=== PATIENT | male | born 1970 | race Caucasian/White ===

== ENCOUNTER 2017-05-06 15:38 | Inpatient (IN) | payer OTHER ==
[~2017-05-06] VITALS: Ht 195.6 cm; Wt 124.7 kg
--- NOTE | 2017-05-06 15:48 | ED GENERAL ADULT ---
History of Present Illness General Chief Complaint: General Adult Stated Complaint: SIB DR FOR JAUNDICE Source: patient Exam Limitations: no limitations Vital Signs & Intake/Output Vital Signs & Intake/Output Vital Signs Date Time Temp Pulse Resp B/P B/P Pulse O2 O2 Flow FiO2 Mean Ox Delivery Rate 05/06 1813 97.7 92 18 114/61 99 Room Air 05/06 1558 100 Room Air 05/06 1546 96.5 113 20 160/86 98 Room Air Allergies Coded Allergies: No Known Allergies (05/06/17) Reconcile Medications Ibuprofen 600 MG TABLET 1 TAB PO PRN PAIN (Reported) with food Naproxen Sodium (Aleve) 220 MG TABLET 1-3 TAB PO PRN PAIN (Reported) Triage Note: 47 YO MALE TO TRIAGE C/O WEKANESS AND FEELING TIRED X5 DAYS. PT STATES HIS URINE LOOKS LIKE "DIET COKE" PT STATES HE RECENTLY STARTED A LOW CARB DIET ABOUT 11 WEEKS, STATES HE LOST A TOTAL OF 30LBS. STATES HE FEELS "WINDED". DENIES CHEST PAIN/ABD PAIN. PT JAUNDICE IN COLOR. PT TO ER ROOM 12 ON ARRIVAL Triage Nurses Notes Reviewed? yes Onset: Abrupt Duration: week(s): Timing: recent history HPI: 05/06/17 4 pm 47-year-old man presents to the emergency department complaining of weakness, difficulty breathing, excessively tired. He also admits to dark urine and intermittent rectal bleeding. The rectal bleeding has been on and off times years. The other symptoms have just occurred over the past 2-3 weeks. The onset of the symptoms were abrupt, the duration has been for 2 weeks, the severity significant; as her symptoms required his to come to the emergency department for care. Does admit to being outdoors a lot and is taken ticks off himself. Past History Travel History Traveled to [place] past 21 day No Medical History Any Pertinent Medical History? see below for history Neurological: NONE EENT: NONE Cardiovascular: NONE Respiratory: NONE Gastrointestinal: NONE Hepatic: NONE Renal: NONE Musculoskeletal: NONE Psychiatric: NONE Endocrine: NONE Blood Disorders: NONE Cancer(s): NONE COURIER/Reproductive: NONE Surgical History Surgical History: knee surg, hand surg Psychosocial History What is your primary language Frisian Tobacco Use: Never used ETOH Use: occasional use Illicit Drug Use: denies illicit drug use Family History Hx Contributory? No Review of Systems Review of Systems Constitutional: Denies: fever. EENTM: Denies: visual changes. Respiratory: Reports: short of breath. Cardiovascular: Denies: chest pain. GI: Denies: abdominal pain. Genitourinary: Reports: hematuria. Musculoskeletal: Reports: muscle pain. Skin: Denies: rash. Neurological/Psychological: Reports: headache. Hematologic/Endocrine: Denies: bruising, bleeding. Physical Exam Physical Exam General Appearance: well developed/nourished, alert, awake, anxious Head: atraumatic, normal appearance Eyes: Bilateral: normal appearance, PERRL, EOMI. Ears, Nose, Throat: normal pharynx, normal ENT inspection Neck: normal inspection, supple, full range of motion Respiratory: normal breath sounds, chest non-tender, no respiratory distress Cardiovascular: regular rate/rhythm Peripheral Pulses: 4+ radial (R), 4+ radial (L) Gastrointestinal: soft, non-tender Rectal: heme positive stool Back: normal range of motion Extremities: normal inspection, no edema Neurologic/Psych: no motor/sensory deficits, awake, alert, oriented x 3 Skin: pallor Core Measures ACS in differential dx? No CVA/TIA Diagnosis: No Severe Sepsis Present: No Septic Shock Present: No Progress Differential Diagnoses I considered the following diagnoses in my evaluation of the patient: [Hemolytic anemia, anemia secondary to GI bleeding, tickborne illness, babesiosis, malignancy] Plan of Care: Orders Procedure Date/time Status Nothing by Mouth 05/07 B Active LEUKOCYTE POOR (PACKED CELLS) 05/06 1753 Active ED Holding Orders 05/06 1750 Active Admit to inpatient 05/06 1750 Active Vital Signs 05/06 1750 Active Code Status 05/06 1750 Active Add-on Test (ER Only) 05/06 1745 Active Add-on Test (ER Only) 05/06 1734 Active TOTAL IRON BINDING CAPACITY 05/06 1620 Active LEAD Ref$ 05/06 1620 Active LDH (LACT ACID DEHYDROGENASE) 05/06 1620 Active FOLIC ACID 05/06 1620 Active SERUM IRON 05/06 1620 Active VITAMIN B12 05/06 1620 Active URINALYSIS 05/06 1612 Complete TROPONIN LEVEL 05/06 1612 Active LYME TITRE 05/06 1612 Active HEPATITIS PANEL 05/06 1612 Active D-DIMER 05/06 1612 Complete COMPREHENSIVE METABOLIC PANEL 05/06 1612 Active CREATINE PHOSPHOKINASE 05/06 1612 Active CBC WITHOUT DIFFERENTIAL 05/06 1612 Complete ANAPLASMA PHAGOCYTOPHILUM DNA 05/06 1612 Active EKG 05/06 1612 Active TYPE & SCREEN (NOT X-MATCH) 05/06 1612 Active Current Medications Sig/Katey Start time Last Medication Dose Stop Time Status Admin Sodium Chloride 1,000 ML ONCE ONE 05/06 1615 AC 05/06 (Normal Saline 0.9%) 05/06 2254 1615 Laboratory Tests 05/06/17 1620: Lyme Disease Antibody Pending 05/06/17 1620: Hepatitis A IgM Ab Pending, Hep Bs Antigen Pending, Hep B Core IgM Ab Conf Pending, Hepatitis C Antibody Pending 05/06/17 1620: Anion Gap 11, Estimated GFR > 60, BUN/Creatinine Ratio 17.5, Glucose 112 H, Calcium 9.3, Iron Pending, TIBC Pending, Total Bilirubin 2.7 H, AST 28, ALT 37, Alkaline Phosphatase 63, Lactate Dehydrogenase Pending, Creatine Kinase 81, Troponin I < 0.01, Total Protein 6.8, Albumin 4.2, Globulin 2.6, Albumin/ Globulin Ratio 1.6, Vitamin B12 Pending, Folate Pending, D-Dimer High Sensitivty 253 H, CBC w Diff MAN DIFF ORDERED, RBC 1.78 L, MCV 97.9 H, MCH 32.4 H, RDW 14.5, MPV 7.4, Gran % 82.3 H, Lymphocytes % 9.4 L, Monocytes % 4.0, Eosinophils % 3.7, Basophils % 0.6, Absolute Granulocytes 5.4, Segmented Neutrophils 79 H, Band Neutrophils 3, Absolute Lymphocytes 0.6 L, Lymphocytes 8 L, Monocytes 2, Absolute Monocytes 0.3, Eosinophils 5, Absolute Eosinophils 0.2, Basophils 1, Absolute Basophils 0, Metamyelocytes 2 H, Nucleated RBCs 1 H , Platelet Estimate VERIFIED BY SMEAR, Polychromasia 1+, Basophilic Stippling RARE, Anisocytosis 1+, PUBS MCHC 33.1, Fld Total RBCs Counted 100, A.phagocytophil DNA PCR Pending, Lead Sample Type Pending, Lead Pending, Urine Color YEL, Urine Clarity CLEAR, Urine pH 6.0, Ur Specific [place] 1.020, Urine Protein NEG, Urine Ketones NEG, Urine Nitrite NEG, Urine Bilirubin SMALL H, Urine Urobilinogen 1.0, Ur Leukocyte Esterase NEG, Ur Microscopic EXAM NOT REQUIRED, Urine Hemoglobin NEG, Urine Glucose NEG Initial ED EKG: NSR Departure Departure Disposition: STILL A PATIENT Condition: Stable Clinical Impression Primary Impression: Symptomatic anemia Secondary Impressions: GI bleed Departure Forms: Customer Survey General Discharge Information Critical Care Note Critical Care Note Critical Care Time: 30-74 min
[2017-05-06] MEDS ORDERED: ALEVE220 M2 PO (16:15)
[2017-05-06] MEDS ORDERED: IBUPROFEN600 M1 PO (16:16)
[2017-05-06 16:47] LABS: ABSOLUTE BASOPHIL COUNT 0 /CUMM (0.0-0.2); ABSOLUTE EOSINOPHIL COUNT 0.2 /CUMM (0.0-0.7); ABSOLUTE GRANULOCYTE CT 5.4 /CUMM (1.4-6.5); ABSOLUTE LYMPH COUNT 0.6 /CUMM (1.2-3.4); ABSOLUTE MONOCYTE COUNT 0.3 /CUMM (0.10-0.60); BASOPHIL % 0.6 % (0.0-2.0); EOSINOPHIL % 3.7 % (0-5); GRANULOCYTE % 82.3 % (42.2-75.2); MEAN CORPUSCULAR HGB 32.4 PG (27.0-31.0); MEAN CORPUSCULAR HGB CONC 33.1 G/DL (33.0-37.0); MEAN CORPUSCULAR VOLUME 97.9 FL (80.0-94.0); MEAN PLATELET VOLUME 7.4 FL (7.4-10.4); PLATELET COUNT 248 /CUMM (130-400); RBC DISTRIBUTION WIDTH 14.5 % (11.5-14.5); RED BLOOD CELL CT 1.78 /CUMM (4.70-6.10); WHITE BLOOD CELL COUNT 6.6 /CUMM (4.8-10.8)
--- NOTE | 2017-05-06 16:59 | NUR ---
CRITICAL TEST RESULTS [id number] KAMLA MCKEON TESTS AND RESULTS: hgb 5.8, hct 17.5 Results received and read back by: AMBROSIO GARRISON Results received date and time: 05/06/17 0405 The following provider was notified of the results, and read the results back: crys Notified date and time: 05/06/17 at 9816
[2017-05-06 17:00] LABS: HEMATOCRIT 17.5 % (42-52)
--- NOTE | 2017-05-06 17:10 | RADIOLOGY REPORT ---
EXAMINATION: XR CHEST CLINICAL INFORMATION: Shortness of breath COMPARISON: None TECHNIQUE: 2 views of the chest were obtained. FINDINGS: The left lateral costophrenic angle is not included in this exam. The cardiomediastinal silhouette and pulmonary vascularity are normal. The lungs are clear. No pleural effusions. No pneumothorax. The visualized bony thorax is within normal limits. IMPRESSION: No acute cardiopulmonary findings within limitations of exam.
--- NOTE | 2017-05-06 17:19 | NUR ---
STEVE VILLARREAL DRAWN AND SENT. PT TO CT VIA STRETCHER
--- NOTE | 2017-05-06 18:14 | CT SCAN REPORT ---
EXAMINATION: CT HEAD WITHOUT CONTRAST CLINICAL INFORMATION: Headache. COMPARISON: None TECHNIQUE: Contiguous axial imaging was performed from the skull base to vertex without intravenous administration of contrast. DLP: 617.14 mGy-cm FINDINGS: There is no evidence of acute intracranial hemorrhage or territorial infarction. No abnormal mass effect or midline shift is seen. Ramirez to white matter differentiation is well preserved. No extra-axial fluid collections are identified. The ventricles are normal in size. There is no abnormal attenuation within the brain parenchyma. The osseous structures and soft tissues are normal. The mastoid air cells and visualized portions of the paranasal sinuses are well aerated. IMPRESSION: No acute intracranial pathology.
--- NOTE | 2017-05-06 18:22 | CT SCAN REPORT ---
EXAMINATION: CT ABDOMEN AND PELVIS WITH CONTRAST CLINICAL INFORMATION: Anemia. Jaundice. Rule out malignancy. COMPARISON: None. TECHNIQUE: Multidetector volumetric imaging was performed from the lung bases through the pubic symphysis following the uneventful administration of: Oral contrast: No Intravenous contrast: 94 cc Optiray 320 Sagittal and coronal reformatted images were obtained on the technologist workstation. Total exam dose-length product 1109 mGy-cm FINDINGS: LUNG BASES: There is streaky atelectasis vs. scar at the lung bases. No focal consolidation or mass. LIVER, GALLBLADDER, AND BILIARY TREE: The liver is normal in size, shape, and attenuation. No focal hepatic lesion or biliary ductal dilatation is present. The gallbladder is unremarkable with no evidence of radiopaque gallstones, gallbladder wall thickening, or obvious pericholecystic inflammatory changes. PANCREAS: Normal; no mass or surrounding fluid. SPLEEN: Splenomegaly, measuring 16.6 cm in greatest transaxial dimension, 16.3 cm craniocaudal. No focal splenic lesion seen however. ADRENAL GLANDS: Normal; no mass. KIDNEYS AND URETERS: The kidneys are normal in size, shape, and attenuation. No hydronephrosis, hydroureter, or calculi. GASTROINTESTINAL TRACT: Stomach and small bowel non-dilated. Mild sigmoid diverticulosis with scattered diverticula elsewhere. No colonic wall thickening or pericolonic inflammatory changes. Normal appendix. ABDOMINAL WALL: Tiny fat-containing umbilical hernia. There is fat within both inguinal canals bilaterally. LYMPHOVASCULAR STRUCTURES: There are prominent retroperitoneal lymph nodes but these are not pathologically enlarged by short axis CT size criteria. The aorta is unremarkable. BLADDER: No focal mass or wall thickening seen. No bladder calculi. PELVIC VISCERA: The prostate and seminal vesicles are normal. OSSEOUS STRUCTURES: Severe degenerative changes of the bilateral hips, left greater than right, greater than expected for age. Multilevel degenerative changes of the thoracolumbar spine. IMPRESSION: No biliary ductal dilatation. No focal liver or pancreatic mass. Nonspecific splenomegaly. No focal splenic lesion seen.
--- NOTE | 2017-05-06 18:35 | NUR ---
PATIENT IS UPDATED ON CONTINUED WAIT. PATIENT IS RESTING W/O C/O AT THIS TIME.
--- NOTE | 2017-05-06 19:48 | History & Physical ---
ULISES ARVIZU MD 05/06/171946: General Information and HPI MD Statement: I have seen and personally examined TEZ MCKEON and documented this H&P. The patient is a 47 year old M who presented with a patient stated chief complaint of [fatigue,shortness of breath, jaundice, dizziness, cola colored urine]. Source of Information: patient Exam Limitations: no limitations History of Present Illness: 47-year-old male with PMH of spinal stenosis on NSAIDs, presented for fatigue, shortness of breath, jaundice, dizziness, cola colored urine. Over the past couple of weeks, he has been feeling increasingly fatigued, tachycardic on minimal exertion. Of note, he has been on low carb diet since February 26, and has lost about 30 lbs since then. His sugar level was reportedly normal. Over the past few weeks, he also has orange colored urine. He has tried to drink more fluids, and now the urine looks "cola colored". His friends have also noted that his skin is more yellow than usual. Blood work on saturday (3 days prior to admission) showed hb of 8. Hb in the Ed this admission showed h/h of 5.8/17.5. He has had intermittent rectal bleed over the past 7 years, 2-3 episodes per month, bright red blood, about 1/4 of a cup, usually coating the stool and on the toilet paper. He has never been transfused in the past and is not aware of any bleeding disorder that runs in the family. He loves eating beans and has been eating them for years. Denies any new food in the diet. He takes ibuprofen and naproxen up to 3 times daily for back pain. Denies melena. Stool exam in the ED is reported as guaiac positive. He has a dog, that is currently treated for lyme disease. + ticks exposure, ? tick bite. ROS postiive for fever, chills, dizziness, lightheadedness, tunnel vision, pre- syncope sensation. Of note, we are still awaiting compatible blood for him from [facility] as he has antibodies in his blood. Patient aware. 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 Home Smoking Status: Current Some Day Smoker (smoke cigar sometimes) ETOH Use: occasional use Illicit Drug Use: denies illicit drug use Functional Ability ADLs Independent: dressing, eating, toileting, bathing. Ambulation: independent IADLs Independent: shopping, housework, finances, food prep, telephone, transportation , medication admin. 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 EENTM: Reports: see HPI, visual changes. Cardiovascular: Reports: palpitations. Denies: chest pain, edema, peripheral edema, syncope. Respiratory: Reports: short of breath. Denies: cough, sputum production, wheezing. GI: Reports: nausea. Denies: abdominal pain, bloating, constipation, diarrhea, bloody stool, changes in stool, vomiting. Genitourinary: Denies: dysuria. Musculoskeletal: Reports: back pain. Exam & Diagnostic Data Last 24 Hrs of Vital Signs/I&O Vital Signs Date Time Temp Pulse Resp B/P B/P Pulse O2 O2 Flow FiO2 Mean Ox Delivery Rate 05/06 2300 99.0 85 18 118/64 97 Room Air 05/061 98.7 88 20 120/62 98 Room Air /5 95 18 141/63 100 Room Air / 2005 97.0 93 22 128/63 96 Room Air / 1813 97.7 92 18 114/61 99 Room Air / 1558 100 Room Air / 1546 96.5 113 20 160/86 98 Room Air Intake & Output 05/07 0800 06/06 0000 06/05 1600 Intake Total 1360 Output Total Balance 1360 Intake, IV 1000 Intake, Oral 360 Patient 124.738 kg 127.006 kg Weight Weight Reported by Patient Reported by Patient Measurement Method Physical Exam General Appearance Alert, Oriented X3, Cooperative, No Acute Distress Skin pale, jaundice face Skin Temp/Moisture Exam: Warm/Dry Sepsis Skin Exam (color): Normal for Ethnicity HEENT Atraumatic, PERRLA, EOMI, dry mucous membranes Neck Supple, No JVD, No thryomegaly, +2 Carotid Pulse wo Bruit Lymphatic Axillary nl, Cervical nl Cardiovascular Normal S1, Normal S2, No Murmurs, Gallops, Rubs, tachycardic Lungs Clear to Auscultation, Normal Air Movement Abdomen Normal Bowel Sounds, Soft, No Tenderness, No Hepatospenomegaly, No Masses Neurological Normal Speech Extremities No Cyanosis, No Edema, Normal Pulses, No Tenderness/Swelling Vascular Normal Pulses, Pulses Symmetrical Last 24 Hrs of Labs/Vinh: Laboratory Tests 05/06/17 2250: Haptoglobin Pending 05/06/17 1620: Lyme Disease Antibody Pending 05/06/17 1620: Hepatitis A IgM Ab Pending, Hep Bs Antigen Pending, Hep B Core IgM Ab Conf Pending, Hepatitis C Antibody Pending, HIV 1&2 Ab Western Blot NONREACTIVE 05/06/17 1620: Anion Gap 11, Estimated GFR > 60, BUN/Creatinine Ratio 17.5, Glucose 112 H, Calcium 9.3, Iron 146, TIBC 303, Ferritin 667.0 H, Total Bilirubin 2.7 H, Direct Bilirubin 0.7 H, AST 28, ALT 37, Alkaline Phosphatase 63, Lactate Dehydrogenase 1316 H, Creatine Kinase 81, Troponin I < 0.01, Total Protein 6.8, Albumin 4.2, Globulin 2.6, Albumin/Globulin Ratio 1.6, Vitamin B12 518, Folate 6.2, TSH 2.450, Free T4 1.26, D-Dimer High Sensitivty 253 H, CBC w Diff MAN DIFF ORDERED, RBC 1.78 L, MCV 97.9 H, MCH 32.4 H, RDW 14.5, MPV 7.4, Gran % 82.3 H, Lymphocytes % 9.4 L, Monocytes % 4.0, Eosinophils % 3.7, Basophils % 0.6, Absolute Granulocytes 5.4, Segmented Neutrophils 79 H, Band Neutrophils 3, Absolute Lymphocytes 0.6 L, Lymphocytes 8 L, Monocytes 2, Absolute Monocytes 0.3, Eosinophils 5, Absolute Eosinophils 0.2, Basophils 1, Absolute Basophils 0, Metamyelocytes 2 H, Nucleated RBCs 1 H, Platelet Estimate VERIFIED BY SMEAR, Polychromasia 1+, Basophilic Stippling RARE, Anisocytosis 1+, PUBS MCHC 33.1, Retic Count 12.3 H, Fld Total RBCs Counted 100, A.phagocytophil DNA PCR Pending , Lead Sample Type Pending, Lead Pending, Urine Color YEL, Urine Clarity CLEAR, Urine pH 6.0, Ur Specific [place] 1.020, Urine Protein NEG, Urine Ketones NEG, Urine Nitrite NEG, Urine Bilirubin NEG@ICTO, Urine Urobilinogen 1.0, Ur Leukocyte Esterase NEG, Ur Microscopic EXAM NOT REQUIRED, Urine Hemoglobin NEG, Urine Glucose NEG Diagnostic Data CXR Results EXAM TYPE: RAD - XRY-CHEST XRAY, PA AND LATERAL EXAMINATION: XR CHEST CLINICAL INFORMATION: Shortness of breath COMPARISON: None TECHNIQUE: 2 views of the chest were obtained. FINDINGS: The left lateral costophrenic angle is not included in this exam. The cardiomediastinal silhouette and pulmonary vascularity are normal. The lungs are clear. No pleural effusions. No pneumothorax. The visualized bony thorax is within normal limits. IMPRESSION: No acute cardiopulmonary findings within limitations of exam. DICTATED BY: MARISSA TAYLOR MD DATE/TIME DICTATED:05/06/171703 Other Results SERVICE DATE: 05/06/17 EXAM TYPE: CAT - CT HEAD WO IV CONTRAST EXAMINATION: CT HEAD WITHOUT CONTRAST CLINICAL INFORMATION: Headache. COMPARISON: None TECHNIQUE: Contiguous axial imaging was performed from the skull base to vertex without intravenous administration of contrast. DLP: 617.14 mGy-cm FINDINGS: There is no evidence of acute intracranial hemorrhage or territorial infarction. No abnormal mass effect or midline shift is seen. Ramirez to white matter differentiation is well preserved. No extra-axial fluid collections are identified. The ventricles are normal in size. There is no abnormal attenuation within the brain parenchyma. The osseous structures and soft tissues are normal. The mastoid air cells and visualized portions of the paranasal sinuses are well aerated. IMPRESSION: No acute intracranial pathology. DICTATED BY: GAVIN PARK MD DATE/TIME DICTATED:05/06/171807 EXAM TYPE: CAT - CT ABD & PELVIS W IV CONTRAST EXAMINATION: CT ABDOMEN AND PELVIS WITH CONTRAST CLINICAL INFORMATION: Anemia. Jaundice. Rule out malignancy. COMPARISON: None. TECHNIQUE: Multidetector volumetric imaging was performed from the lung bases through the pubic symphysis following the uneventful administration of: Oral contrast: No Intravenous contrast: 94 cc Optiray 320 Sagittal and coronal reformatted images were obtained on the technologist workstation. Total exam dose-length product 1109 mGy-cm FINDINGS: LUNG BASES: There is streaky atelectasis vs. scar at the lung bases. No focal consolidation or mass. LIVER, GALLBLADDER, AND BILIARY TREE: The liver is normal in size, shape, and attenuation. No focal hepatic lesion or biliary ductal dilatation is present. The gallbladder is unremarkable with no evidence of radiopaque gallstones, gallbladder wall thickening, or obvious pericholecystic inflammatory changes. PANCREAS: Normal; no mass or surrounding fluid. SPLEEN: Splenomegaly, measuring 16.6 cm in greatest transaxial dimension, 16.3 cm craniocaudal. No focal splenic lesion seen however. ADRENAL GLANDS: Normal; no mass. KIDNEYS AND URETERS: The kidneys are normal in size, shape, and attenuation. No hydronephrosis, hydroureter, or calculi. GASTROINTESTINAL TRACT: Stomach and small bowel non-dilated. Mild sigmoid diverticulosis with scattered diverticula elsewhere. No colonic wall thickening or pericolonic inflammatory changes. Normal appendix. ABDOMINAL WALL: Tiny fat-containing umbilical hernia. There is fat within both inguinal canals bilaterally. LYMPHOVASCULAR STRUCTURES: There are prominent retroperitoneal lymph nodes but these are not pathologically enlarged by short axis CT size criteria. The aorta is unremarkable. BLADDER: No focal mass or wall thickening seen. No bladder calculi. PELVIC VISCERA: The prostate and seminal vesicles are normal. OSSEOUS STRUCTURES: Severe degenerative changes of the bilateral hips, left greater than right, greater than expected for age. Multilevel degenerative changes of the thoracolumbar spine. IMPRESSION: No biliary ductal dilatation. No focal liver or pancreatic mass. Nonspecific splenomegaly. No focal splenic lesion seen. DICTATED BY: GRACIELA MICHAUD MD DATE/TIME DICTATED:05/06/171811 FINISHING MACHINE OPERATOR:ESDRAS Assessment/Plan Assessment: 47-year-old male with PMH of spinal stenosis on NSAIDs, presented for fatigue, shortness of breath, tachycardia on minimal exertion, jaundice, dizziness, cola colored urine, found to have h/h of 5.8/17.5 (hb was 8 about 3 days prior). No recent obvious bleeding reported, guaiac positive stool in ED, hx of intermittent bright red blood per rectum over the past 7 years, 2-3 episodes/ month, 1/4 cup blood each time. He takes ibuprofen and naproxen up to 3 times daily for back pain. CT showed nonspecific splenomegaly (16.6 cm X 16.3 cm). Labs: h/h 5.8/17.5, retic count 12.3H, MCV 97.9, RDW 14.5, rare basophilic stippling, total bilirubin 2.7H, direct bilirubin 0.7H, LDH 1316, iron 146, tibc 303, ferritin 667H, b12 518, folate 6.2, tsh 2.45, ft4 1.26. He has never been transfused in the past and is not aware of any bleeding disorder that runs in the family. He has a dog, that is currently treated for lyme disease. + ticks exposure, ?tick bite. ROS positive for fever, chills, 1 X night sweat, dizziness, lightheadedness, tunnel vision, pre-syncope sensation. CT head was negative. Patient admitted to general medicine for symptomatic anemia, currently awaiting compatible blood to be transfused. Problem list: # Symptomatic anemia # Hx of spinal stenosis # Symptomatic anemia, could be due to GI blood loss given hx of rectal bleed, vs autoimmune hemolytic anemia given high LDH and indirect bilirubin * F/U lyme titer, anaplasma, babesiosis, hepatitis panel, HIV, lead level, coomb 's test, haptoglobin, peripheral smear * Transfuse 2 units of PRBC when there is compatible blood available * GI consult in am * Hematology consult in am * Guaiac all stool * Follow h/h * Keep off NSAIDs * NS 75ml/hr X 2 bags * omeprazole 40 mg daily started # Hx of spinal stenosis * Keep off NSAIDs * PP: morphine 2 mg q4p severe pain, vicodin 5/325 q6p moderate, tylenol 650 q6p mild Diet: Regular PP: morphine 2 mg q4p severe pain, vicodin 5/325 q6p moderate, tylenol 650 q6p mild DVT ppx: alps. no pharm due to anemia FULL CODE As Ranked By This Provider Problem List: 1. Symptomatic anemia Core Measures/Miscellaneous Acute Coronary Syndrome ACS Diagnosis: No Cerebrovascular Accident CVA/TIA Diagnosis: No Congestive Heart Failure CHF Diagnosis: No Venous Thromboembolism VTE Risk Factors: Acute medical illness, Age > 40 No [facility] VTE prophylaxis d/t: No contraindications No VTE Pharm Prophylaxis d/t: Active bleeding VTE Diagnosis: No VTE Type: NONE VTE Confirmed by (Test): NONE Severe Sepsis Severe Sepsis Present: No Septic Shock Septic Shock Present: No Miscellaneous Documentation Attending Case Discussed With: SOLEDAD BOWEN MD Primary Care Physician: JOHN MAGALLANES MD Patient sees these Specialists None Level of Patient Care: General Medicine GUS,NIDA 05/06/171946: Resident Review Statement Resident Statement: examined this patient, discussed with internet site designer, agreed with internet site designer, discussed with family, reviewed EMR data (avail), discussed with nursing , discussed with case mgmt, reviewed images, amended to note Other Findings: 47-year-old male with no past medical history presents to the ED with complains of weakness, difficulty breathing, fatigue, dark urine and intermittent rectal bleeding. According to the patient has been experiencing shortness of breath, feeling tired and fatigued as well as start "cold urine for the past 2-3 weeks now. States he called Dr. Araujo who had blood work ordered him for a call from him today saying that his H&H is low with a hemoglobin of 8 to go to the ER for further evaluation. Upon arrival blood work. That his H&H was down to 5.5. Patient does endorse history of tick bites and states that he has a dog that has been recently diagnosed with Lyme. He denies any recent antibiotic use, eating fiber beans, any history of hemoglobinopathies. Denies any pruritus, rash on the body. Denies any abdominal pain, nausea, vomiting, diarrhea or constipation. Does endorse having intermittent episodes of rectal bleeding. States that he sometimes notice about a quarter of occult blood with stools. Denies any melena. He smokes cigars occasionally, drinks alcohol occasionally, denies any drug use. 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 Denies any exposure to inhalation films. Denies any fevers. His review of systems otherwise is premature unremarkable. Vitals at the time of admission blood pressure 114/61, respiratory rate of 18, pulse 92, afebrile saturating 99% on room air. On physical exam he is alert, oriented 3 and in no acute distress sitting comfortably in bed. HEENT revealed anemia, mildly icteric. Examination of the neck did not reveal any elevated JVP or cervical lymphadenopathy. Cardiovascular exam pertinent for normal S1, S2, no murmurs rubs or gallops appreciated. Chest was clear to auscultation bilaterally. Abdominal exam was benign with abdomen soft, nontender, nondistended with normal bowel sounds in all 4 quadrants, no hepatosplenomegaly. Examination of the lower extremities did not reveal any edema. Neuro exam was grossly unremarkable. Lab pertinent for microcytic anemia with an H&H of 5.8/17.65, MCV of 97.5 with a normal platelet count of 248,000. White blood cell count was within normal limits at 6600 with left shift with 79 segmented neutrophils, and 2 metamyelocytes. Serum chemistries revealed sodium of 1:30, potassium of 3.7, bicarbonate of 26, normal anion gap of 11, BUN 14 with a creatinine of 0.8. Serum glucose elevated to 112. Iron studies pending. Total bili elevated to 2.7, AST/ALT of 28/37, alkaline phosphatase of 63. LDH pending. Creatinine kinase with 81, troponin less than 0.01. Vitamin B12, folate, TSH, free T4 pending. D-dimer elevated to 52. Serum lead pending. Duett pertinent for a small amount of bilirubin otherwise unremarkable. Lyme and anaplasmosis together with hepatitis panel pending. Chest x-ray revealed no acute cardiopulmonary findings, no pleural effusion or pneumothorax. Head CT showed no acute intracranial pathology. CT abdomen and pelvis with IV contrast showed no biliary ductal dilatation, no liver or pancreatic mass, nonspecific splenomegaly, no focal splenic lesion. There are prominent retroperitoneal lymph nodes but these are not pathologically enlarged. There is mild sigmoid diverticulosis with scattered diverticula elsewhere no colonic wall thickening or pericolonic inflammatory changes. In the ER he received normal saline bolus 1. Assessment and plan Admit patient to [facility] #Macrocytic anemia Most likely secondary to acute blood loss anemia however workup including increased LDH, normal RDW, elevated indirect bilirubin is consistent with hemolytic anemia. Of note iron studies are normal except for hypertension which is elevated at 667 which is also probably because it is an acute phase reactant We'll send for direct Wally' test Type and crossmatch 2 units of packed RBCs Follow-up CBC in a.m. Follow-up HIV, hepatitis serologies, Lyme's antibody, peripheral smear for babesiosis, anaplasmosis, haptoglobulin Lead sample was sent, follow-up studies which were sent from the ER there is no basophilic stippling deficit GI eval in AM given heme positive stools. Heme consult in AM given hemolytic anemia - DVT Prophylaxis - ALPs given anemia - Diet - Regular - Code Status - Full Code JESSI KUMAR, [facility] 05/06/17 2030: Attending MD Review Statement Attending Statement Attending MD Statement: examined this patient, discuss w/resident/PA/MATRIX WORKER, agreed w/resident/PA/MATRIX WORKER Attending Assessment/Plan: 47 yo M with h/o spinal stenosis, is here for evaluation of fatigue, exhaustion and exertional dyspnea. Patient is healthy at baseline and has been on a low carb diet-exercise plan with resultant weight loss of 30 lbs over 12 weeks. He works at [employer]. Although he has noticed exertional dyspnea for the past 1 month, over the past 1 week his symptoms have been more prominent dyspneic on doing a flight of stairs or minimal exertion, palpitations, extremely exhausted and lightheaded. He also reports occipital headaches off and on, but states his BP was ok and no vision changes. He did notice that his urine was dark as 'diet coke' and that people noticed he was turning pale/white. He spoke with Dr. Magallanes (who is his friend), who advised blood work which he got done on Saturday at [facility]. He got the results today, showed H/H of 8.1/24.8 and he was advised to come to the ER. Tez has not seen a doctor for over 5 years, he reports intermittent BRBPR/ hematochezia once every week, that is painful and amounts to about half a cup. He thinks he may have hemorrhoids. No abdominal pain, N/V, diarrhea. C/o heartburn that resolves with balsamic vinegar, denies melena. He uses naproxen everyday and motrin occasionally for back pain 2/2 spinal stenosis. He has never had a colonoscopy. He reports h/o nosebleeds as a kid. Denies easy bruising or rash. Does endorse tick bites (his dog is currently being treated for Lyme). No h/o blood transfusions. Denies h/o sickle cell or thalassemia. No bleeding or clotting disorders in the family. Vitals stable except for tachycardia. Exam: Pallor++, no lymphadenopathy, no rash. Chest b/l clear, Heart S1S2 regular tachycardic. Abd soft, NT. LE: no edema. Labs: H/H 5.8/17.5, macrocytosis, normal RDW and platelet count, metamyelocytes 2, glucose 112, T. Bili 2.7, D. Bili 0.7, LDH 1316, trop neg, UA clear. HIV nonreactive. EKG: Sinus rhythm. CT abd/pelvis: splenomegaly. CT head neg. CXR neg. Rectal exam: Guaiac positive. 1. Symptomatic anemia, chronic blood loss, with possible hemolysis (elevated LDH , T. bili). GM admit, type and crossmatch. Check orthostats. Gentle hydration. Check peripheral smear, iron studies, B12, folic acid, TSH, free T4, retic count , haptoglobin, transfuse 2 units PRBCs when available. Check Coomb's test. Check hepatitis and tick panel. Guaiac all stools. Add PPI. Avoid NSAIDs. GI and hematology eval in AM. Presence of splenomegaly ?thalassemia vs. Infectious or neoplastic process. I spoke with blood bank, patient's blood type is "O" however may have antibodies which is causing a reaction to available blood. Hence, blood has been sent to [place] for testing and assess availability of blood for transfusion. This has been explained to patient. DVT ppx Alps. Full code.
--- NOTE | 2017-05-06 20:17 | NUR ---
PT GOING TO ROOM 226-1.
--- NOTE | 2017-05-06 20:31 | Admission Certification ---
Admission Certification Certification Statement - As attending physician, I certify that at the time of - admission, based on clinical presentation, severity of - symptoms, need for further diagnostic testing and - therapeutic interventions, and risk of adverse outcomes - without in-hospital treatment, in my clinical assessment, - this patient requires an acute hospital stay for a minimum - of two nights or longer. I have also considered psychsocial - factors such as support system, advanced age, financial - issues, cognitive issues, and failed out-patient treatments, - past re-admission history, safety of patient, and lack of - compliance as applicable. Specific rationale supporting this admission is: Symptomatic anemia, chronic blood loss, hemolytic anemia.
[2017-05-06 21:11] VITALS: BP 120/62
[2017-05-06 23:00] VITALS: BP 118/64
--- NOTE | 2017-05-06 23:25 | NUR ---
PATIENT ARRIVED ON UNIT AT APPROX 2100 FROM ER. PATIENT WAS ORIENTED TO CALL JORDAN, ROOM, STAFF, SURROUNDINGS. PT A+Ox3 AND ON RA. SLIGHT JAUNDICE APPEARANCE NOTICED UPON EXAMINATION. ADMISSION ASSESSMENT COMPLETE. 2 UNITS OF PRBC'S ORDERED AND LAB IS AWAITING TO RECEIVE THEM FROM OUTSIDE OF THE HOSPITAL. PATIENT IS AWARE AND UNDERSTANDING. VITALS ARE STABLE AT THIS TIME. NO FURTHER COMPLAINTS. WILL CONTINUE TO CLOSELY MONITOR.
[2017-05-07 06:55] VITALS: BP 120/60
--- NOTE | 2017-05-07 06:58 | PN- Housestaff ---
See Addendum Subjective Follow-up For: Generalized Weakness Headache Subjective: Mr Stanley was seen and examined this morning. He is resting comfrotably in bed. Continues to feel lethergic and states the he has developed a headache overnight. Patient states his headache is bilaterral in nature present in the occipital area. Patient states headache is worse with movement and when he gets up from bed. Denies any vision changes or megingeal signs. He denies and fever, chills, vomiting or nausea. Review of Systems Constitutional: Reports: see HPI, weakness. Denies: chills, diaphoresis, fever. Cardiovascular: Denies: chest pain, edema, orthopena. Objective Last 24 Hrs of Vital Signs/I&O Vital Signs Date Time Temp Pulse Resp B/P B/P Pulse O2 O2 Flow FiO2 Mean Ox Delivery Rate 06/06 0850 100.4 100 18 112/62 97 Room Air 06/06 0835 99.2 85 18 110/64 96 Room Air 06/06 0655 98.7 98 20 120/60 98 Room Air 06/05 2300 99.0 85 18 118/64 97 Room Air 06/05 2111 98.7 88 20 120/62 98 Room Air 06/05 2025 95 18 141/63 100 Room Air 06/05 2005 97.0 93 22 128/63 96 Room Air 06/05 1813 97.7 92 18 114/61 99 Room Air 06/05 1558 100 Room Air 06/05 1546 96.5 113 20 160/86 98 Room Air Intake & Output 06/06 1600 06/06 0800 06/06 0000 Intake Total 1200 1360 Output Total Balance 1200 1360 Intake, IV 600 1000 Intake, Oral 600 360 Patient 124.738 kg Weight Weight Reported by Patient Measurement Method Physical Exam General Appearance: Alert, Oriented X3, Cooperative, No Acute Distress, Pallor Skin: No Rashes Skin Temp/Moisture Exam: Hot/Diaphoretic Sepsis Skin Exam (color): Normal for Ethnicity HEENT: Mucous Membr. moist/pink Neck: Supple Cardiovascular: Regular Rate, Normal S1, Normal S2 Lungs: Clear to Auscultation Abdomen: Normal Bowel Sounds, Soft, No Tenderness Neurological: Normal Speech, Strength at 5/5 X4 Ext Extremities: No Clubbing, No Cyanosis, No Edema Vascular: Normal Pulses Current Medications: Current Medications Sig/Katey Start time Last Medication Dose Route Stop Time Status Admin Acetaminophen 650 MG .STK-MED ONE 05/07 0812 DC PO 05/07 0813 Acetaminophen 650 MG Q6P PRN 05/060 AC 05/07 PO 0836 Acetaminophen/ 1 TAB Q6P PRN 05/06 220 AC 05/06 Hydrocodone Bitart PO 2259 Folic Acid 1 MG DAILY 05/07 1315 AC 05/07 PO 1519 Morphine Sulfate 2 MG Q4P PRN 05/06 220 AC IV Omeprazole 40 MG DAILY AC 05/07 0700 AC 05/07 PO 0627 Patient Medication 1 ED .STK-MED ONE 05/07 1351 DC Teaching ED 05/07 1352 Prednisone 125 MG DAILY 05/07 1045 AC 05/07 PO 1151 Sodium Chloride 1,000 ML Q13H 05/06 2200 AC 05/06 IV 05/07 2359 2252 Sodium Chloride 1,000 ML ONCE ONE 05/06 1615 DC 05/06 IV 05/06 2254 1615 Last 24 Hrs of Lab/Vinh Results Last 24 Hrs of Labs/Mics: Laboratory Tests 05/07/17 1700: CBC w Diff NO MAN DIFF REQ, RBC 2.12 L, MCV 99.1 H, MCH 33.5 H, RDW 15.5 H, MPV 7.0 L, Gran % 91.2 H, Lymphocytes % 5.5 L, Monocytes % 1.6 L, Eosinophils % 1.4, Basophils % 0.3, Absolute Granulocytes 8.8 H, Absolute Lymphocytes 0.5 L, Absolute Monocytes 0.2, Absolute Eosinophils 0.1, Absolute Basophils 0, PUBS MCHC 33.8, Infectious [place] Titer NEGATIVE 05/07/17 0650: Anion Gap 9, Estimated GFR > 60, BUN/Creatinine Ratio 14.3, Total Bilirubin 3.1 H, Direct Bilirubin 0.4, AST 28, ALT 40, Alkaline Phosphatase 59, Total Protein 6.1 L, Albumin 3.5, CBC w Diff MAN DIFF ORDERED, RBC 1.47 L, MCV 103.1 H, MCH 35.6 H, RDW 15.3 H, MPV 8.0, Gran % 85.6 H, Lymphocytes % 6.6 L, Monocytes % 4.3, Eosinophils % 3.2, Basophils % 0.3, Absolute Granulocytes 4.9, Segmented Neutrophils 76 H, Band Neutrophils 6 H, Absolute Lymphocytes 0.4 L, Lymphocytes 6 L, Monocytes 4, Absolute Monocytes 0.2, Eosinophils 4, Absolute Eosinophils 0.2, Absolute Basophils 0, Metamyelocytes 3 H, Myelocytes 1 H, Platelet Estimate ADEQUATE, Polychromasia 2+, Basophilic Stippling SLIGHT, Anisocytosis 1+, Ovalocytes FEW, PUBS MCHC 34.5 05/07/17 0600: Babesia microti DNA PCR Pending 05/06/17 2250: Haptoglobin Pending Assessment/Plan Assessment: Mr Stanley is 47-year-old male with PMH of spinal stenosis on NSAIDs, presented for fatigue, shortness of breath, tachycardia on minimal exertion, jaundice, dizziness, cola colored urine, found to have h/h of 5.8/17.5 (hb was 8 on 05/03). No recent obvious bleeding reported, guaiac positive stool in ED, hx of intermittent bright red blood per rectum over the past 7 years, 2-3 episodes/ month, 1/4 cup blood each time. He takes ibuprofen and naproxen up to 3 times daily for back pain. CT showed nonspecific splenomegaly (16.6 cm X 16.3 cm). Labs: h/h 5.8/17.5, retic count 12.3H, MCV 97.9, RDW 14.5, rare basophilic stippling, total bilirubin 2.7H, direct bilirubin 0.7H, LDH 1316, No history of being transfured in the past. Does have a dog, lives in the [place] and is exposed to ticks very often. Patient does state that he was exposed to a tick bite approximately 4 weeks ago. Was bitten by a tick in the groin. Patient admitted to general medicine for symptomatic anemia. # Symptomatic anemia, likely due to hemolytic anemia in the setting of recently being exposed to a tick. * Lyme AB (western Blot):Pending, babesiosis : Pending, hepatitis panel, HIV, lead level, * If symptoms still persist despite negative initial smear may repeat smear in 12-24 hours. PCR serum has been sent. For now we will watch off antibiotics and if need be may begin patient on atovaquone and azithromycin. * High Dose steroids started this am, 1 mg/kg. 125 mg daily. * Folic Acid, 1 mg daily. * 2 units of PRBCs was transfused today. Will repeat an H&H at 6 PM for adequate response. Maintain target H&H above 7.0. * In am: LDH, Billirubin, Reticulocyte count. #History of Blood Loss * Formal GI consultation obtained due to history of Blood loss per rectum. * May benefit from Comprehensive GI work up. * CBC daily. If acute signs of bleeding, inform GI Stat. # Hx of spinal stenosis * Keep off NSAID in the setting of ABLA. Patient does have a history of longstanding NSAID use, due to spinal stenosis. * Manage pain with morphine and Tylenol. Diet: Regular DVT ppx: ALPS FULL CODE Problem List: 1. GI bleed 2. Symptomatic anemia Pain Ratin Pain Location: Headache Pain Goal: Remain pain free Pain Plan: Tylenol Tomorrow's Labs & Rationales: CBC BEP
--- NOTE | 2017-05-07 08:06 | Event Note ---
Event Note Event Note: S: Patient had to be specifically screened for blood due to possible incompatability from antibodies. B: 2 units of PRBCs had been ordered by the night team however blood had to be sourced from the [place]. There was a thought that the the patient may require to be premedicated prior to transfusion. A/P: Had a conversation with Lilia from the blood bank who suggested that we can proceed without premedication and just monitor patient for any acute reaction. If any reactions were to occur patient would then be further worked up for acute transfusion reaction. Attending made aware. Resident made aware. I visited the patient shortly after transfusion had started (30 mintues) and he was stable. He offered no complaints and was resting.
[2017-05-07 08:35] VITALS: BP 110/64
[2017-05-07 08:50] VITALS: BP 112/62
[2017-05-07 08:51] LABS: ABSOLUTE BASOPHIL COUNT 0 /CUMM (0.0-0.2); ABSOLUTE EOSINOPHIL COUNT 0.2 /CUMM (0.0-0.7); ABSOLUTE LYMPH COUNT 0.4 /CUMM (1.2-3.4); ABSOLUTE MONOCYTE COUNT 0.2 /CUMM (0.10-0.60); EOSINOPHIL % 3.2 % (0-5)
[2017-05-07 08:57] LABS: ABSOLUTE GRANULOCYTE CT 4.9 /CUMM (1.4-6.5); BASOPHIL % 0.3 % (0.0-2.0); GRANULOCYTE % 85.6 % (42.2-75.2); MEAN CORPUSCULAR HGB 35.6 PG (27.0-31.0); MEAN CORPUSCULAR HGB CONC 34.5 G/DL (33.0-37.0); PLATELET COUNT 240 /CUMM (130-400); RBC DISTRIBUTION WIDTH 15.3 % (11.5-14.5); RED BLOOD CELL CT 1.47 /CUMM (4.70-6.10); WHITE BLOOD CELL COUNT 5.7 /CUMM (4.8-10.8)
[2017-05-07 08:58] LABS: MEAN CORPUSCULAR VOLUME 103.1 FL (80.0-94.0)
[2017-05-07 09:00] LABS: HEMATOCRIT 15.1 % (42-52)
--- NOTE | 2017-05-07 11:45 | Cons- Hematology ---
See Addendum General Information and HPI Consulting Request Date of Consult: 05/07/17 Requested By: SOLEDAD BOWEN MD Reason for Consult: anemia Source of Information: patient Exam Limitations: no limitations History of Present Illness: Mr. Stanley is a 47-year-old male without significant medical history presented to the hospital with severe anemia. He has not been feeling well for the past 3 weeks. He had one week of feeling like "coming down with something" and progressed over 3 weeks with more fatigue and decreased stamina. He was unable to do his normal exercise routine in the gym. Over the past 5 days, this has progressed much worse. He went and had blood work done on Saturday and noted hemoglobin of 8. He continued to feel unwell with mostly fatigue and headaches. He feels likely he had a "hang over." He does have some chest palpitation. He reports darkening of his urine to a "cola" colored. He noted some yellowing of his skin. He denied any new pain. He has no bleeding or bruising. He does have some hemorrhoid issue and intermittent blood in toliet tissue. He has not had any fever or chills. He has no night sweats. He has some nausea but no vomiting. He denies any diarrhea. He has not taken any new medication and does not take any medication regularly. He does not see a doctor often. He denies any new medical issue. Because of these symptoms, he called Dr. Mcmanus and was referred to the ED. In the ED, he was noted to have hemoglobin of 5.8, hematocrit of 17.5%, WBC 6600 , platelet 248,000, total bilirubin of 2.7, direct bilirubin of 0.7, LDH 1316, and reticulocyte of 12.5%. He was admitted with symptomatic anemia concerning for hemolytic anemia. He is currently receiving 1 unit of pRBC. Allergies/Medications Allergies: Coded Allergies: No Known Allergies (05/06/17) Home Med List: Ibuprofen 600 MG TABLET 1 TAB PO PRN PAIN (Reported) with food Naproxen Sodium (Aleve) 220 MG TABLET 1-3 TAB PO PRN PAIN (Reported) Current Medications: Current Medications Sig/Katey Start time Last Medication Dose Route Stop Time Status Admin Acetaminophen 650 MG Q6P PRN 05/06 2200 AC 05/07 PO 0836 Acetaminophen/ 1 TAB Q6P PRN 05/06 2200 AC 05/06 Hydrocodone Bitart PO 225 Morphine Sulfate 2 MG Q4P PRN 05/06 220 AC IV Omeprazole 40 MG DAILY AC 05/07 0700 AC 05/07 PO 06 Prednisone 125 MG DAILY 05/07 1045 AC PO Sodium Chloride 1,000 ML Q13H 05/06 2200 AC 05/06 IV 05/07 2359 2252 Sodium Chloride 1,000 ML ONCE ONE 05/06 1615 DC 05/06 IV 05/06 2254 1615 Review of Systems Review of Systems Constitutional: Reports: malaise, weakness. Denies: chills, diaphoresis, fever. Cardiovascular: Reports: palpitations. Denies: chest pain, syncope. Respiratory: Reports: short of breath. Denies: hemoptysis, sputum production, stridor, wheezing. GI: Reports: nausea, bloody stool. Denies: abdominal pain, bloating, constipation, diarrhea, bowel incontinence, changes in stool, vomiting. Genitourinary: Denies: dysuria. Skin: Reports: jaundice. Denies: rash. Neurological/Psychological: Reports: headache. Denies: confusion. Hematologic/Endocrine: Reports: bleeding. Denies: bruising. Immunologic/Allergic: Denies: splenectomy, lymphadenopathy. 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 Home Services at Home: None Smoking Status: Current Some Day Smoker (smoke cigar sometimes) ETOH Use: occasional use Illicit Drug Use: denies illicit drug use Functional Ability ADLs Independent: dressing, eating, toileting, bathing. Ambulation: independent IADLs Independent: shopping, housework, finances, food prep, telephone, transportation , medication admin. 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[employer]) Exam & Diagnostic Data Vital Signs and I&O Vital Signs Date Time Temp Pulse Resp B/P B/P Pulse O2 O2 Flow FiO2 Mean Ox Delivery Rate 05/07 0850 100.4 100 18 112/62 97 Room Air 05/07 0835 99.2 85 18 110/64 96 Room Air 05/07 0655 98.7 98 20 120/60 98 Room Air / 2300 99.0 85 18 118/64 97 Room Air / 2111 98.7 88 20 120/62 98 Room Air / 2025 95 18 141/63 100 Room Air 05/06 2005 97.0 93 22 128/63 96 Room Air / 1813 97.7 92 18 114/61 99 Room Air 05/06 1558 100 Room Air 05/06 1546 96.5 113 20 160/86 98 Room Air Intake & Output 05/07 1600 05/07 0800 05/07 0000 Intake Total 1200 1360 Output Total Balance 1200 1360 Intake, IV 600 1000 Intake, Oral 600 360 Patient 124.738 kg Weight Weight Reported by Patient Measurement Method Physical Exam General Appearance: well developed/nourished, no apparent distress, alert, awake , comfortable Head: atraumatic, normal appearance Eyes: Bilateral: PERRL, pale conjunctivae. Ears, Nose, Throat: normal pharynx, sublingual jaundice Neck: normal inspection Cardiovascular: regular rate/rhythm Gastrointestinal: normal bowel sounds, soft, non-tender, splenomegaly Extremities: normal inspection, normal capillary refill, no edema Neurologic/Psych: awake, alert, oriented x 3 Skin: jaundice, pallor Lymphatic: no anterior cervical linda Last 48 Hours of Lab Results: Laboratory Tests 05/07 05/06 05/06 0650 2250 1620 Chemistry Sodium (137 - 145 mmol/L) 139 Potassium (3.5 - 5.1 mmol/L) 4.2 Chloride (98 - 107 mmol/L) 103 Carbon Dioxide (22 - 30 mmol/L) 27 Anion Gap (5 - 16) 9 BUN (9 - 20 mg/dL) 10 Creatinine (0.7 - 1.2 mg/dL) 0.7 Estimated GFR (>60 ml/min) > 60 BUN/Creatinine Ratio (7 - 25 %) 14.3 Total Bilirubin (0.2 - 1.3 mg/dL) 3.1 H Direct Bilirubin (< 0.4 mg/dL) 0.4 AST (17 - 59 U/L) 28 ALT (21 - 72 U/L) 40 Alkaline Phosphatase (< 127 U/L) 59 Total Protein (6.3 - 8.2 g/dL) 6.1 L Albumin (3.5 - 5.0 g/dL) 3.5 Hematology CBC w Diff MAN DIFF ORDERED WBC (4.8 - 10.8 /CUMM) 5.7 RBC (4.70 - 6.10 /CUMM) 1.47 L Hgb (14.0 - 18.0 G/DL) 5.2 *L Hct (42 - 52 %) 15.1 *L MCV (80.0 - 94.0 FL) 103.1 H MCH (27.0 - 31.0 PG) 35.6 H RDW (11.5 - 14.5 %) 15.3 H Plt Count (130 - 400 /CUMM) 240 MPV (7.4 - 10.4 FL) 8.0 Gran % (42.2 - 75.2 %) 85.6 H Lymphocytes % (20.5 - 51.1 %) 6.6 L Monocytes % (1.7 - 9.3 %) 4.3 Eosinophils % (0 - 5 %) 3.2 Basophils % (0.0 - 2.0 %) 0.3 Absolute Granulocytes (1.4 - 6.5 /CUMM) 4.9 Segmented Neutrophils (42.2 - 75.2 %) 76 H Band Neutrophils (0.0 - 5.0 %) 6 H Absolute Lymphocytes (1.2 - 3.4 /CUMM) 0.4 L Lymphocytes (20.5 - 51.1 %) 6 L Monocytes (1.7 - 9.3 %) 4 Absolute Monocytes (0.10 - 0.60 /CUMM) 0.2 Eosinophils (0 - 5.0 %) 4 Absolute Eosinophils (0.0 - 0.7 /CUMM) 0.2 Absolute Basophils (0.0 - 0.2 /CUMM) 0 Metamyelocytes (0.0 - 1.0 %) 3 H Myelocytes (0 - 0 %) 1 H Platelet Estimate (ADEQUATE) ADEQUATE Polychromasia 2+ Basophilic Stippling SLIGHT Anisocytosis 1+ Ovalocytes FEW PUBS MCHC (33.0 - 37.0 G/DL) 34.5 Haptoglobin Pending Serology Lyme Ab (Western Blot) Pending Lyme IgG 18 kDa Band Pending Lyme IgG 23 kDa Band Pending Lyme IgG 28 kDa Band Pending Lyme IgG 30 kDa Band Pending Lyme IgG 39 kDa Band Pending Lyme IgG 41 kDa Band Pending Lyme IgG 45 kDa Band Pending Lyme IgG 58 kDa Band Pending Lyme IgG 66 kDa Band Pending Lyme IgG 93 kDa Band Pending Lyme IgM (Western Blot) Pending Lyme IgM 23 kDa Band Pending Lyme IgM 39 kDa Band Pending Lyme IgM 41 kDa Band Pending 05/06 05/06 1620 1620 Serology Lyme Disease Antibody (RATIO) 5.20 *H Hepatitis A IgM Ab (NONREACTIVE) NONREACTIVE Hep Bs Antigen (NONREACTIVE) NONREACTIVE Hep B Core IgM Ab Conf (NONREACTIVE) NONREACTIVE Hepatitis C Antibody (NONREACTIVE) NONREACTIVE HIV 1&2 Ab Western Blot (NONREACTIVE) NONREACTIVE 05/06 1620 Chemistry Sodium (137 - 145 mmol/L) 138 Potassium (3.5 - 5.1 mmol/L) 3.7 Chloride (98 - 107 mmol/L) 101 Carbon Dioxide (22 - 30 mmol/L) 26 Anion Gap (5 - 16) 11 BUN (9 - 20 mg/dL) 14 Creatinine (0.7 - 1.2 mg/dL) 0.8 Estimated GFR (>60 ml/min) > 60 BUN/Creatinine Ratio (7 - 25 %) 17.5 Glucose (65 - 99 mg/dL) 112 H Calcium (8.4 - 10.2 mg/dL) 9.3 Iron (49 - 181 ug/dL) 146 TIBC (261 - 462 ug/dL) 303 Ferritin (17.9 - 464 ng/mL) 667.0 H Total Bilirubin (0.2 - 1.3 mg/dL) 2.7 H Direct Bilirubin (< 0.4 mg/dL) 0.7 H AST (17 - 59 U/L) 28 ALT (21 - 72 U/L) 37 Alkaline Phosphatase (< 127 U/L) 63 Lactate Dehydrogenase (313 - 618 U/L) 1316 H Creatine Kinase (55 - 170 U/L) 81 Troponin I (<0.11 ng/ml) < 0.01 Total Protein (6.3 - 8.2 g/dL) 6.8 Albumin (3.5 - 5.0 g/dL) 4.2 Globulin (1.9 - 4.2 gm/dL) 2.6 Albumin/Globulin Ratio (1.1 - 2.2 %) 1.6 Vitamin B12 (239 - 931 pg/mL) 518 Folate (2.76 - 20.0 ng/mL) 6.2 TSH (0.270 - 4.200 uIU/mL) 2.450 Free T4 (0.64 - 1.79 ng/dL) 1.26 Coagulation D-Dimer High Sensitivty (0 - 243 ng/ml) 253 H Hematology CBC w Diff MAN DIFF ORDERED WBC (4.8 - 10.8 /CUMM) 6.6 RBC (4.70 - 6.10 /CUMM) 1.78 L Hgb (14.0 - 18.0 G/DL) 5.8 *L Hct (42 - 52 %) 17.5 *L MCV (80.0 - 94.0 FL) 97.9 H MCH (27.0 - 31.0 PG) 32.4 H RDW (11.5 - 14.5 %) 14.5 Plt Count (130 - 400 /CUMM) 248 MPV (7.4 - 10.4 FL) 7.4 Gran % (42.2 - 75.2 %) 82.3 H Lymphocytes % (20.5 - 51.1 %) 9.4 L Monocytes % (1.7 - 9.3 %) 4.0 Eosinophils % (0 - 5 %) 3.7 Basophils % (0.0 - 2.0 %) 0.6 Absolute Granulocytes (1.4 - 6.5 /CUMM) 5.4 Segmented Neutrophils (42.2 - 75.2 %) 79 H Band Neutrophils (0.0 - 5.0 %) 3 Absolute Lymphocytes (1.2 - 3.4 /CUMM) 0.6 L Lymphocytes (20.5 - 51.1 %) 8 L Monocytes (1.7 - 9.3 %) 2 Absolute Monocytes (0.10 - 0.60 /CUMM) 0.3 Eosinophils (0 - 5.0 %) 5 Absolute Eosinophils (0.0 - 0.7 /CUMM) 0.2 Basophils (0.0 - 2.0 %) 1 Absolute Basophils (0.0 - 0.2 /CUMM) 0 Metamyelocytes (0.0 - 1.0 %) 2 H Nucleated RBCs (0.0 - 0.0 /100WBC) 1 H Platelet Estimate (ADEQUATE) VERIFIED BY SMEAR Polychromasia 1+ Basophilic Stippling RARE Anisocytosis 1+ PUBS MCHC (33.0 - 37.0 G/DL) 33.1 Retic Count (0.5 - 2.0 %) 12.3 H Other Body Source Fld Total RBCs Counted (%) 100 Serology A.phagocytophil DNA PCR Pending Toxicology Lead Sample Type Pending Lead Pending Urines Urine Color (YEL,AMB,STR) YEL Urine Clarity (CLEAR) CLEAR Urine pH (5.0 - 8.0) 6.0 Ur Specific [place] (1.001 - 1.035) 1.020 Urine Protein (NEG,<30 MG/DL) NEG Urine Ketones (NEG) NEG Urine Nitrite (NEG) NEG Urine Bilirubin (NEG) NEG@ICTO Urine Urobilinogen (0.1 - 1.0 EU/dl) 1.0 Ur Leukocyte Esterase (NEG) NEG Ur Microscopic EXAM NOT REQUIRED Urine Hemoglobin (NEG) NEG Urine Glucose (N MG/DL) NEG Imaging/Other Studies: CT abdomen/pelvis 05/06/2017: No biliary ductal dilatation. No focal liver or pancreatic mass. Nonspecific splenomegaly. No focal splenic lesion seen. CT head 05/06/2017: No acute intracranial pathology. Assessment/Plan Assessment: Ms. Stanley is a 47-year-old male without significant medical history except for hemorrhoidal bleeding who presented with severe symptomatic anemia with palpitation, headaches, dyspnea, and fatigue. On admission, he was noted to have splenomegaly, hematocrit of 17.5%, elevated LDH, and elevated indirect bilirubin. FAYE was positive for IgG and C3. He had nonspecific cold agglutinin and warm auto-immune antibody. 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 His history is concerning possible tick-borne illness or [id number] disease. He does have Lyme antibody positivity. Hemolytic anemia is usually not seen in Lyme disease but more common in babesiosis. Peripheral smear was reviewed by pathology and nd. He does have increased reticulocyte, tear-drop cells, polychromasia, basophilic stippling, spherocytes, and ovalocytes. There is no schistocyte. There have been case reports of possible WAHA postinfection. It may be reasonable to have ID weigh in on the findings. Given his symptoms, it is reasonable to start a trial of high dose steroid with prednisone 1 mg/kg for now and may need to increase to 1.5 mg/kg if not effect. IVIG has been use in other case especially with worsening hemolytic anemia. This may be held off for now. He should be started on folic acid with his hemolytic anemia. Recommendations: 1. Start prednisone 1 mg/kg daily 2. Start folic acid 1 mg daily 3. Consider ID consultation 4. Monitor hemolysis lab: CBC, Reticulocyte, LDH, Bilirubin 5. Follow up Lyme, anaplasma, babesiosis evaluation Problem List: 1. Symptomatic anemia 2. GI bleed 3. Hemolytic anemia Other Findings/Comments: Please call [phone] Consult Acknowledgment - Thank you for your consult request.
[2017-05-07 14:05] VITALS: BP 128/54
--- NOTE | 2017-05-07 14:58 | Cons- Infect Disease ---
General Information and HPI Consulting Request Date of Consult: 05/07/17 Requested By: JESSI KUMAR,SOLEDAD Reason for Consult: Hemolytic anemia/rule out infection Source of Information: patient History of Present Illness: This is a 47-year-old man with a history of spinal stenosis causing chronic pain , for which he is maintained on nonsteroidals, and intermittent bright red blood per rectum, attributed to hemorrhoids, admitted on May 06 after blood work performed as an outpatient for a 3 to 4 week history of fatigue, weakness, lightheadedness, headaches, body aches, dyspnea on exertion and a change in his skin color and urine revealed a marked anemia. On admission he was afebrile. Laboratory data revealed a white blood cell count of 7000, H&H 6 and 18, platelets 248,000, with a peripheral smear revealing frequent spherocytes, BUN/ creatinine 14 and 0.8, bilirubin 2.7, LDH 1316, urinalysis negative. Chest x- ray was negative. CT of the head was negative. CT of the abdomen and pelvis revealed splenomegaly. Additional blood work including HIV and hepatitis serologies were negative. He was evaluated by Hematology, who suspects a warm autoimmune hemolytic anemia, and he has been started on prednisone. He had a low-grade fever this morning to 100.4. At present he offers no complaints and feels improved from admission. He has noted multiple ticks on his body this year, but has never been tested or treated for Lyme disease. Allergies/Medications Allergies: Coded Allergies: No Known Allergies (05/06/17) Home Med List: Ibuprofen 600 MG TABLET 1 TAB PO PRN PAIN (Reported) with food Naproxen Sodium (Aleve) 220 MG TABLET 1-3 TAB PO PRN PAIN (Reported) Past History Travel History Traveled to [place] past 21 day No Medical History Blood Transfusion Hx: No Neurological: NONE EENT: NONE Cardiovascular: NONE Respiratory: NONE Gastrointestinal: RECTAL BLEED/HEMORRHOIDS Hepatic: NONE Renal: NONE Musculoskeletal: spinal stenosis Psychiatric: NONE Endocrine: NONE Blood Disorders: NONE Cancer(s): NONE DIVISION HEAD/Reproductive: NONE History of MRSA: No History of VRE: No History of CDIFF: No Isolation History: Standard Surgical History Surgical History: L KNEE SURGERY BILAT HAND SURGERIES Family History Relations & Conditions If Any: Relation not specified for: *No pertinent family history Psychosocial History Where Do You Live? Home Services at Home: None Smoking Status: Current Some Day Smoker (smoke cigar sometimes) ETOH Use: occasional use Illicit Drug Use: denies illicit drug use Functional Ability ADLs Independent: dressing, eating, toileting, bathing. Ambulation: independent IADLs Independent: shopping, housework, finances, food prep, telephone, transportation , medication admin. 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 Cardiovascular: Denies: chest pain. Respiratory: Reports: short of breath (with exertion). GI: Denies: abdominal pain, diarrhea, nausea. Genitourinary: Reports: no symptoms. Musculoskeletal: Reports: joint pain, muscle pain. Skin: Denies: rash. All Other Systems: Reviewed and Negative Exam & Diagnostic Data Last 24 Hrs of Vital Signs/I&O Vital Signs Date Time Temp Pulse Resp B/P B/P Pulse O2 O2 Flow FiO2 Mean Ox Delivery Rate 05/07 1405 98.9 104 20 128/54 96 / 0850 100.4 100 18 112/62 97 Room Air 06/06 0835 99.2 85 18 110/64 96 Room Air 06/06 0655 98.7 98 20 120/60 98 Room Air 06/05 2300 99.0 85 18 118/64 97 Room Air 06/05 2111 98.7 88 20 120/62 98 Room Air 06/05 2025 95 18 141/63 100 Room Air 06/05 2005 97.0 93 22 128/63 96 Room Air 06/05 1813 97.7 92 18 114/61 99 Room Air 06/05 1558 100 Room Air 06/05 1546 96.5 113 20 160/86 98 Room Air Intake & Output 05/07 1600 /06 0800 05/07 0000 Intake Total 1200 1200 1360 Output Total 950 Balance 250 1200 1360 Intake, IV 187 069 9736 Intake, Oral 500 600 360 Output, Urine 950 Patient 275 lb Weight Weight Reported by Patient Measurement Method Physical Exam Other Physical Findings: He is awake and alert in no acute distress. MAXIMUM TEMPERATURE 100.4. Skin reveals no rash or jaundice. HEENT exam no scleral icterus. Neck is supple with no adenopathy. Lungs are clear. Heart regular rhythm with no murmur. Abdomen is obese, soft, nontender with positive bowel sounds. Back no CVA tenderness. Extremities chronic venous stasis changes both lower extremities, with no cyanosis, clubbing or edema. Neuro is without focality. Last 24 Hours of Lab Results: Laboratory Tests 05/07 05/07 06 0650 0600 2250 Chemistry Sodium (137 - 145 mmol/L) 139 Potassium (3.5 - 5.1 mmol/L) 4.2 Chloride (98 - 107 mmol/L) 103 Carbon Dioxide (22 - 30 mmol/L) 27 Anion Gap (5 - 16) 9 BUN (9 - 20 mg/dL) 10 Creatinine (0.7 - 1.2 mg/dL) 0.7 Estimated GFR (>60 ml/min) > 60 BUN/Creatinine Ratio (7 - 25 %) 14.3 Total Bilirubin (0.2 - 1.3 mg/dL) 3.1 H Direct Bilirubin (< 0.4 mg/dL) 0.4 AST (17 - 59 U/L) 28 ALT (21 - 72 U/L) 40 Alkaline Phosphatase (< 127 U/L) 59 Total Protein (6.3 - 8.2 g/dL) 6.1 L Albumin (3.5 - 5.0 g/dL) 3.5 Hematology CBC w Diff MAN DIFF ORDERED WBC (4.8 - 10.8 /CUMM) 5.7 RBC (4.70 - 6.10 /CUMM) 1.47 L Hgb (14.0 - 18.0 G/DL) 5.2 *L Hct (42 - 52 %) 15.1 *L MCV (80.0 - 94.0 FL) 103.1 H MCH (27.0 - 31.0 PG) 35.6 H RDW (11.5 - 14.5 %) 15.3 H Plt Count (130 - 400 /CUMM) 240 MPV (7.4 - 10.4 FL) 8.0 Gran % (42.2 - 75.2 %) 85.6 H Lymphocytes % (20.5 - 51.1 %) 6.6 L Monocytes % (1.7 - 9.3 %) 4.3 Eosinophils % (0 - 5 %) 3.2 Basophils % (0.0 - 2.0 %) 0.3 Absolute Granulocytes (1.4 - 6.5 /CUMM) 4.9 Segmented Neutrophils (42.2 - 75.2 %) 76 H Band Neutrophils (0.0 - 5.0 %) 6 H Absolute Lymphocytes (1.2 - 3.4 /CUMM) 0.4 L Lymphocytes (20.5 - 51.1 %) 6 L Monocytes (1.7 - 9.3 %) 4 Absolute Monocytes (0.10 - 0.60 /CUMM) 0.2 Eosinophils (0 - 5.0 %) 4 Absolute Eosinophils (0.0 - 0.7 /CUMM) 0.2 Absolute Basophils (0.0 - 0.2 /CUMM) 0 Metamyelocytes (0.0 - 1.0 %) 3 H Myelocytes (0 - 0 %) 1 H Platelet Estimate (ADEQUATE) ADEQUATE Polychromasia 2+ Basophilic Stippling SLIGHT Anisocytosis 1+ Ovalocytes FEW PUBS MCHC (33.0 - 37.0 G/DL) 34.5 Haptoglobin Pending Serology Babesia microti DNA PCR Pending 05/06 05/06 05/06 1620 1620 1620 Serology Lyme Disease Antibody (RATIO) 5.20 *H Lyme Ab (Western Blot) Pending Lyme IgG 18 kDa Band Pending Lyme IgG 23 kDa Band Pending Lyme IgG 28 kDa Band Pending Lyme IgG 30 kDa Band Pending Lyme IgG 39 kDa Band Pending Lyme IgG 41 kDa Band Pending Lyme IgG 45 kDa Band Pending Lyme IgG 58 kDa Band Pending Lyme IgG 66 kDa Band Pending Lyme IgG 93 kDa Band Pending Lyme IgM (Western Blot) Pending Lyme IgM 23 kDa Band Pending Lyme IgM 39 kDa Band Pending Lyme IgM 41 kDa Band Pending Hepatitis A IgM Ab (NONREACTIVE) NONREACTIVE Hep Bs Antigen (NONREACTIVE) NONREACTIVE Hep B Core IgM Ab Conf (NONREACTIVE) NONREACTIVE Hepatitis C Antibody (NONREACTIVE) NONREACTIVE HIV 1&2 Ab Western Blot (NONREACTIVE) NONREACTIVE 05/06 1620 Chemistry Sodium (137 - 145 mmol/L) 138 Potassium (3.5 - 5.1 mmol/L) 3.7 Chloride (98 - 107 mmol/L) 101 Carbon Dioxide (22 - 30 mmol/L) 26 Anion Gap (5 - 16) 11 BUN (9 - 20 mg/dL) 14 Creatinine (0.7 - 1.2 mg/dL) 0.8 Estimated GFR (>60 ml/min) > 60 BUN/Creatinine Ratio (7 - 25 %) 17.5 Glucose (65 - 99 mg/dL) 112 H Calcium (8.4 - 10.2 mg/dL) 9.3 Iron (49 - 181 ug/dL) 146 TIBC (261 - 462 ug/dL) 303 Ferritin (17.9 - 464 ng/mL) 667.0 H Total Bilirubin (0.2 - 1.3 mg/dL) 2.7 H Direct Bilirubin (< 0.4 mg/dL) 0.7 H AST (17 - 59 U/L) 28 ALT (21 - 72 U/L) 37 Alkaline Phosphatase (< 127 U/L) 63 Lactate Dehydrogenase (313 - 618 U/L) 1316 H Creatine Kinase (55 - 170 U/L) 81 Troponin I (<0.11 ng/ml) < 0.01 Total Protein (6.3 - 8.2 g/dL) 6.8 Albumin (3.5 - 5.0 g/dL) 4.2 Globulin (1.9 - 4.2 gm/dL) 2.6 Albumin/Globulin Ratio (1.1 - 2.2 %) 1.6 Vitamin B12 (239 - 931 pg/mL) 518 Folate (2.76 - 20.0 ng/mL) 6.2 TSH (0.270 - 4.200 uIU/mL) 2.450 Free T4 (0.64 - 1.79 ng/dL) 1.26 Coagulation D-Dimer High Sensitivty (0 - 243 ng/ml) 253 H Hematology CBC w Diff MAN DIFF ORDERED WBC (4.8 - 10.8 /CUMM) 6.6 RBC (4.70 - 6.10 /CUMM) 1.78 L Hgb (14.0 - 18.0 G/DL) 5.8 *L Hct (42 - 52 %) 17.5 *L MCV (80.0 - 94.0 FL) 97.9 H MCH (27.0 - 31.0 PG) 32.4 H RDW (11.5 - 14.5 %) 14.5 Plt Count (130 - 400 /CUMM) 248 MPV (7.4 - 10.4 FL) 7.4 Gran % (42.2 - 75.2 %) 82.3 H Lymphocytes % (20.5 - 51.1 %) 9.4 L Monocytes % (1.7 - 9.3 %) 4.0 Eosinophils % (0 - 5 %) 3.7 Basophils % (0.0 - 2.0 %) 0.6 Absolute Granulocytes (1.4 - 6.5 /CUMM) 5.4 Segmented Neutrophils (42.2 - 75.2 %) 79 H Band Neutrophils (0.0 - 5.0 %) 3 Absolute Lymphocytes (1.2 - 3.4 /CUMM) 0.6 L Lymphocytes (20.5 - 51.1 %) 8 L Monocytes (1.7 - 9.3 %) 2 Absolute Monocytes (0.10 - 0.60 /CUMM) 0.3 Eosinophils (0 - 5.0 %) 5 Absolute Eosinophils (0.0 - 0.7 /CUMM) 0.2 Basophils (0.0 - 2.0 %) 1 Absolute Basophils (0.0 - 0.2 /CUMM) 0 Metamyelocytes (0.0 - 1.0 %) 2 H Nucleated RBCs (0.0 - 0.0 /100WBC) 1 H Platelet Estimate (ADEQUATE) VERIFIED BY SMEAR Polychromasia 1+ Basophilic Stippling RARE Anisocytosis 1+ PUBS MCHC (33.0 - 37.0 G/DL) 33.1 Retic Count (0.5 - 2.0 %) 12.3 H Other Body Source Fld Total RBCs Counted (%) 100 Serology A.phagocytophil DNA PCR Pending Toxicology Lead Sample Type Pending Lead Pending Urines Urine Color (YEL,AMB,STR) YEL Urine Clarity (CLEAR) CLEAR Urine pH (5.0 - 8.0) 6.0 Ur Specific [place] (1.001 - 1.035) 1.020 Urine Protein (NEG,<30 MG/DL) NEG Urine Ketones (NEG) NEG Urine Nitrite (NEG) NEG Urine Bilirubin (NEG) NEG@ICTO Urine Urobilinogen (0.1 - 1.0 EU/dl) 1.0 Ur Leukocyte Esterase (NEG) NEG Ur Microscopic EXAM NOT REQUIRED Urine Hemoglobin (NEG) NEG Urine Glucose (N MG/DL) NEG Last 24 Hours of Vinh Results: No cultures Diagnostic Data Recent Imaging Findings: Chest x-ray was negative. CT of the head was negative. 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 The etiology is unclear, with infectious possibilities including Babesia, Hepatitis, HIV, EBV and CMV, though he has little evidence to suggest any of these. The peripheral smear does not reveal ring forms to suggest Babesia, and Babesia in an immunocompetent host is typically self-limited and not associated with a warm autoimmune hemolytic anemia. He has no adenopathy or lymphocytosis to suggest EBV, and his hepatitis serologies and HIV are negative. The positive Lyme titer is noted but may be old and would not explain his hemolytic anemia; therefore do not feel treatment should be initiated for this at this time. Suggestion: 1. Serum for PCR for Babesia 2. Monospot 3. Follow-up Lyme Western blot 4. Further management of his anemia per Hematology 5. Continue to follow off antibiotics pending above Consult Acknowledgment - Thank you for your consult request.
[2017-05-07 17:28] LABS: ABSOLUTE BASOPHIL COUNT 0 /CUMM (0.0-0.2); ABSOLUTE EOSINOPHIL COUNT 0.1 /CUMM (0.0-0.7); ABSOLUTE GRANULOCYTE CT 8.8 /CUMM (1.4-6.5); ABSOLUTE LYMPH COUNT 0.5 /CUMM (1.2-3.4); ABSOLUTE MONOCYTE COUNT 0.2 /CUMM (0.10-0.60); BASOPHIL % 0.3 % (0.0-2.0); EOSINOPHIL % 1.4 % (0-5); GRANULOCYTE % 91.2 % (42.2-75.2); MEAN CORPUSCULAR HGB 33.5 PG (27.0-31.0); MEAN CORPUSCULAR HGB CONC 33.8 G/DL (33.0-37.0); MEAN CORPUSCULAR VOLUME 99.1 FL (80.0-94.0); PLATELET COUNT 280 /CUMM (130-400); RBC DISTRIBUTION WIDTH 15.5 % (11.5-14.5)
[2017-05-07 17:45] LABS: RED BLOOD CELL CT 2.12 /CUMM (4.70-6.10)
[2017-05-07 17:49] LABS: WHITE BLOOD CELL COUNT 9.6 /CUMM (4.8-10.8)
[2017-05-07 22:34] VITALS: BP 124/60
[2017-05-08 05:57] VITALS: BP 118/58
--- NOTE | 2017-05-08 06:25 | PN- Housestaff ---
CATRINA KUMAR,[facility] 05/08/17 0625: Subjective Follow-up For: Hemolytic Anemia Subjective: Mr. Stanley was seen and examined this morning. He is resting comfortably in bed. He denies any issues overnight. Patient states that he was able to tolerate by mouth intake well and appetite has significantly improved. Reports a slight headache similar to yesterday however much less in severity. He is currently comfortable and resting. Denies any fever, chills, nausea, vomiting. Review of Systems Constitutional: Reports: see HPI. Objective Last 24 Hrs of Vital Signs/I&O Vital Signs Date Time Temp Pulse Resp B/P B/P Pulse O2 O2 Flow FiO2 Mean Ox Delivery Rate 05/08 0557 98.1 85 18 118/58 97 Room Air 05/07 2234 98.5 108 20 124/60 96 05/07 1405 98.9 104 20 128/54 96 05/07 0850 100.4 100 18 112/62 97 Room Air Intake & Output 05/08 1600 05/08 0800 05/08 0000 Intake Total 300 350 Output Total Balance 300 350 Intake, Oral 300 350 Physical Exam General Appearance: Alert, Oriented X3, Cooperative Skin: No Rashes Skin Temp/Moisture Exam: Hot/Diaphoretic Cardiovascular: Normal S1, Normal S2, tachycardic Lungs: Clear to Auscultation, Normal Air Movement Abdomen: Normal Bowel Sounds, Soft, No Tenderness Neurological: Normal Speech, Strength at 5/5 X4 Ext Extremities: No Clubbing, No Cyanosis, No Edema Vascular: Normal Pulses Current Medications: Current Medications Sig/Katey Start time Last Medication Dose Route Stop Time Status Admin Acetaminophen 650 MG Q6P PRN 05/06 2200 AC 05/08 PO 0552 Acetaminophen/ 1 TAB Q6P PRN 05/06 2200 AC 05/06 Hydrocodone Bitart PO 2259 Folic Acid 1 MG DAILY 05/07 1315 AC 05/07 PO 1519 Morphine Sulfate 2 MG Q4P PRN 05/06 2200 AC IV Omeprazole 40 MG DAILY AC 05/07 0700 05/07 PO 0627 Patient Medication 1 ED .STK-MED ONE 05/07 1351 [place] Teaching ED 05/07 1352 Prednisone 125 MG DAILY 05/07 1045 AC 05/07 PO 1151 Sodium Chloride 1,000 ML Q13H 05/06 2200 DC 06/05 IV 05/07 2359 2252 Last 24 Hrs of Lab/Vinh Results Last 24 Hrs of Labs/Mics: Laboratory Tests 05/08/17 0611: Anion Gap 9, Estimated GFR > 60, BUN/Creatinine Ratio 22.5, Total Bilirubin 2.9 H, Direct Bilirubin 0.5 H, Lactate Dehydrogenase 1129 H, CBC w Diff Pending, WBC Pending, RBC Pending, Hgb Pending, Hct Pending, MCV Pending, MCH Pending, RDW Pending, Plt Count Pending, MPV Pending, Gran % Pending, Lymphocytes % Pending, Monocytes % Pending, Eosinophils % Pending, Basophils % Pending, Absolute Granulocytes Pending, Absolute Lymphocytes Pending, Absolute Monocytes Pending, Absolute Eosinophils Pending, Absolute Basophils Pending, PUBS MCHC Pending, Retic Count Pending 05/07/17 1700: CBC w Diff NO MAN DIFF REQ, RBC 2.12 L, MCV 99.1 H, MCH 33.5 H, RDW 15.5 H, MPV 7.0 L, Gran % 91.2 H, Lymphocytes % 5.5 L, Monocytes % 1.6 L, Eosinophils % 1.4, Basophils % 0.3, Absolute Granulocytes 8.8 H, Absolute Lymphocytes 0.5 L, Absolute Monocytes 0.2, Absolute Eosinophils 0.1, Absolute Basophils 0, PUBS MCHC 33.8, Infectious [place] Titer NEGATIVE Assessment/Plan Assessment: Mr Stanley is 47-year-old male with PMH of spinal stenosis on NSAIDs, presented for fatigue, shortness of breath, tachycardia on minimal exertion, jaundice, dizziness, cola colored urine, found to have h/h of 5.8/17.5 (hb was 8 on 05/03). No recent obvious bleeding reported, guaiac positive stool in ED, hx of intermittent bright red blood per rectum over the past 7 years, 2-3 episodes/ month, 1/4 cup blood each time. He takes ibuprofen and naproxen up to 3 times daily for back pain. CT showed nonspecific splenomegaly (16.6 cm X 16.3 cm). Labs: h/h 5.8/17.5, retic count 12.3H, MCV 97.9, RDW 14.5, rare basophilic stippling, total bilirubin 2.7H, direct bilirubin 0.7H, LDH 1316, No history of being transfured in the past. Does have a dog, lives in the [place] and is exposed to ticks very often. Patient does state that he was exposed to a tick bite approximately 4 weeks ago. Was bitten by a tick in the groin. Patient admitted to general medicine for symptomatic anemia. # Symptomatic anemia, likely due to hemolytic anemia in the setting of recently being exposed to a tick. * Lyme AB (western Blot):Pending, babesiosis : Pending, hepatitis panel, HIV, lead level, * If symptoms still persist despite negative initial smear may repeat smear in 12-24 hours. PCR serum has been sent. For now we will watch off antibiotics and if need be may begin patient on atovaquone and azithromycin. * Continue High Dose steroids1 mg/kg. 125 mg daily. * Folic Acid, 1 mg daily. * 2 units of PRBCs was transfused 05/08/2017. Will repeat an H&H at 4 PM for adequate, if H/H >6.5, will transfuse patient 1 Unit PRBC. * Retic Count this AM: 17.99 * In am: LDH, Billirubin, Reticulocyte count. #History of Blood Loss * Formal GI consultation obtained due to history of Blood loss per rectum. * May benefit from Comprehensive GI work up, can have colonoscopy as an outpatient. * CBC daily. If acute signs of bleeding, inform GI Stat. # Hx of spinal stenosis * Keep off NSAID in the setting of ABLA. Patient does have a history of longstanding NSAID use, due to spinal stenosis. * Manage pain with morphine and Tylenol. Diet: Regular DVT ppx: ALPS FULL CODE Problem List: 1. Hemolytic anemia 2. Symptomatic anemia Pain Ratin Pain Location: No Pain Pain Goal: Remain pain free Pain Plan: tylenol Tomorrow's Labs & Rationales: cbc ROSARIO PERERA MD 05/08/17 1243: Attending MD Review Statement Attending Statement Attending MD Statement: examined this patient, discuss w/resident/PA/THREAD LASTER, agreed w/resident/PA/THREAD LASTER, reviewed EMR data (avail) Attending Assessment/Plan: 47M PMH spinal stenosis presenting with headache, weakness, dyspnea on minimal exertion, and pallor in the setting of symptomatic anemia with Hgb 5.4. Patient reports no new medications or travel. Received 2 units pRBC yesterday, today reports he feels much better. He denies headache or fatigue, and is walking around without difficulty. Vitals stable. Hgb improved to 7 overnight but down to 6.5 this morning. Reticulocyte count 17 %. 1. Symptomatic anemia 2. Dyspnea on exertion 3. Autoimmune hemolytic anemia Plan - Continue on general medicine - Monitor CBC q12h - ID and hematology consults - Lyme, Babesiosis, Anaplasma sent - ALPS for DVT PPx - Repeat CBC, if remains <7 then transfuse 1 unit pRBC
[2017-05-08 07:42] LABS: ABSOLUTE BASOPHIL COUNT 0 /CUMM (0.0-0.2); ABSOLUTE EOSINOPHIL COUNT 0.1 /CUMM (0.0-0.7); ABSOLUTE GRANULOCYTE CT 5.3 /CUMM (1.4-6.5); ABSOLUTE LYMPH COUNT 0.6 /CUMM (1.2-3.4); ABSOLUTE MONOCYTE COUNT 0.3 /CUMM (0.10-0.60); BASOPHIL % 0.2 % (0.0-2.0); EOSINOPHIL % 1.4 % (0-5); GRANULOCYTE % 84.1 % (42.2-75.2); MEAN CORPUSCULAR HGB 33.3 PG (27.0-31.0); MEAN CORPUSCULAR HGB CONC 33.3 G/DL (33.0-37.0); MEAN PLATELET VOLUME 7.7 FL (7.4-10.4); RBC DISTRIBUTION WIDTH 16.7 % (11.5-14.5); RED BLOOD CELL CT 1.95 /CUMM (4.70-6.10); WHITE BLOOD CELL COUNT 6.3 /CUMM (4.8-10.8)
[2017-05-08 08:23] LABS: HEMATOCRIT 19.5 % (42-52)
[2017-05-08 08:51] LABS: PLATELET COUNT 257 /CUMM (130-400)
--- NOTE | 2017-05-08 09:25 | PN- Hematology ---
Subjective Subjective: He feels better with blood transfusion. His headaches are significantly improved. His energy level is improved. He has no bleeding issues. Review of Systems Constitutional: Denies: chills, fever, weakness. Cardiovascular: Denies: chest pain. Gastrointestinal: Denies: melena, bloody stool. Skin: Reports: jaundice. Neurological/Psychological: Reports: headache. Hematologic/Endocrine: Denies: bruising, bleeding. All Other Systems: Reviewed and Negative Objective Vital Signs and I&Os Vital Signs Date Time Temp Pulse Resp B/P B/P Pulse O2 O2 Flow FiO2 Mean Ox Delivery Rate 05/08 0557 98.1 85 18 118/58 97 Room Air 05/07 2234 98.5 108 20 124/60 96 05/07 1405 98.9 104 20 128/54 96 Intake & Output 05/08 1600 05/08 0800 05/08 0000 05/07 1600 05/07 0800 05/07 0000 Intake Total 652 103 6562 1200 1360 Output Total 950 Balance 300 331 012 7867 1360 Intake, IV 722 644 1920 Intake, Oral 300 350 500 600 360 Output, Urine 950 Patient 124.738 kg Weight Weight Reported by Patient Measurement Method Physical Exam: General Appearance: well developed/nourished, no apparent distress, alert, awake , comfortable Head: atraumatic, normal appearance Eyes: Bilateral: PERRL, pale conjunctivae. Ears, Nose, Throat: normal pharynx, sublingual jaundice Cardiovascular: regular rate/rhythm Gastrointestinal: normal bowel sounds, soft, non-tender, splenomegaly Extremities: normal inspection, normal capillary refill, no edema Neurologic/Psych: awake, alert, oriented x 3 Skin: jaundice Current Medications: Current Medications Sig/Katey Start time Last Medication Dose Route Stop Time Status Admin Acetaminophen 650 MG Q6P PRN 05/06 2200 AC 05/08 PO 0552 Acetaminophen/ 1 TAB Q6P PRN 05/06 2200 AC 05/06 Hydrocodone Bitart PO 2259 Folic Acid 1 MG DAILY 05/07 1315 AC 05/07 PO 1519 Morphine Sulfate 2 MG Q4P PRN 05/06 2200 AC IV Omeprazole 40 MG DAILY AC 05/07 0700 AC 05/07 PO 0627 Patient Medication 1 ED .STK-MED ONE 05/07 1351 [place] Teaching ED 05/07 1352 Prednisone 125 MG DAILY 05/07 1045 05/07 PO 1151 Sodium Chloride 1,000 ML Q13H 05/06 2200 DC 05/06 IV 05/07 2359 2252 Results Last 24 Hours of Lab Results: Laboratory Tests 05/08 05/07 0611 1700 Chemistry Sodium (137 - 145 mmol/L) 139 Potassium (3.5 - 5.1 mmol/L) 4.0 Chloride (98 - 107 mmol/L) 102 Carbon Dioxide (22 - 30 mmol/L) 29 Anion Gap (5 - 16) 9 BUN (9 - 20 mg/dL) 18 Creatinine (0.7 - 1.2 mg/dL) 0.8 Estimated GFR (>60 ml/min) > 60 BUN/Creatinine Ratio (7 - 25 %) 22.5 Total Bilirubin (0.2 - 1.3 mg/dL) 2.9 H Direct Bilirubin (< 0.4 mg/dL) 0.5 H Lactate Dehydrogenase (313 - 618 U/L) 1129 H Hematology CBC w Diff MAN DIFF ORDERED NO MAN DIFF REQ WBC (4.8 - 10.8 /CUMM) 6.3 9.6 RBC (4.70 - 6.10 /CUMM) 1.95 L 2.12 L Hgb (14.0 - 18.0 G/DL) 6.5 *L 7.1 *L Hct (42 - 52 %) 19.5 *L 21.0 L MCV (80.0 - 94.0 FL) 100.0 H 99.1 H MCH (27.0 - 31.0 PG) 33.3 H 33.5 H RDW (11.5 - 14.5 %) 16.7 H 15.5 H Plt Count (130 - 400 /CUMM) 257 280 MPV (7.4 - 10.4 FL) 7.7 7.0 L Gran % (42.2 - 75.2 %) 84.1 H 91.2 H Lymphocytes % (20.5 - 51.1 %) 10.1 L 5.5 L Monocytes % (1.7 - 9.3 %) 4.2 1.6 L Eosinophils % (0 - 5 %) 1.4 1.4 Basophils % (0.0 - 2.0 %) 0.2 0.3 Absolute Granulocytes (1.4 - 6.5 /CUMM) 5.3 8.8 H Segmented Neutrophils (42.2 - 75.2 %) 85 H Band Neutrophils (0.0 - 5.0 %) 2 Absolute Lymphocytes (1.2 - 3.4 /CUMM) 0.6 L 0.5 L Lymphocytes (20.5 - 51.1 %) 8 L Monocytes (1.7 - 9.3 %) 2 Absolute Monocytes (0.10 - 0.60 /CUMM) 0.3 0.2 Absolute Eosinophils (0.0 - 0.7 /CUMM) 0.1 0.1 Absolute Basophils (0.0 - 0.2 /CUMM) 0 0 Metamyelocytes (0.0 - 1.0 %) 2 H Myelocytes (0 - 0 %) 1 H Platelet Estimate (ADEQUATE) VERIFIED BY SMEAR Poikilocytosis 1+ Anisocytosis 1+ Stomatocytes RARE PUBS MCHC (33.0 - 37.0 G/DL) 33.3 33.8 Retic Count (0.5 - 2.0 %) 17.99 H Serology Infectious [place] Titer (NEGATIVE) NEGATIVE Assessment/Plan Assessment/Recommendations: Ms. Stanley is a 47-year-old male without significant medical history except for hemorrhoidal bleeding who presented with severe symptomatic anemia with palpitation, headaches, dyspnea, and fatigue. On admission, he was noted to have splenomegaly, hematocrit of 17.5%, elevated LDH, and elevated indirect bilirubin. FAYE was positive for IgG and C3. He had nonspecific cold agglutinin and warm auto-immune antibody. 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 He has been transfused with 2 units of pRBC. His hemoglobin/hematocrit did improved to 7.1/21.0. He is improved symptomatically. He has been started on folic acid and prednisone 1 mg/kg. His hemoglobin did decrease back to 6.5 with hematocrit of 19.5%. His reticulocytes are increased. His LDH is improved and bilirubin is a little lower. Etiology of the AIHA is unclear at the moment. Infectious etiology (tick-borne disease) is possible but less likely. Post-infectious syndrome is also likely. Infectious mono titer is negative. Lyme antibody is positive but less likely a cause of AIHA. Idiopathic AIHA is also a likely etiology. He should be continued on prednisone 1 mg/kg with folic acid 1 mg daily. Hemoglobin goal of >7 g/dL or symptomatic. Recommendations: 1. Continue prednisone 1 mg/kg daily 2. Continue folic acid 1 mg daily 3. Monitor hemolysis lab: CBC, Reticulocyte, LDH, Bilirubin daily 4. Follow up Lyme, anaplasma, babesiosis evaluation 5. GI evaluation for rectal bleeding (inpatient vs outpatient) 6. Transfusion goal >7 g/dL or symptomatic Please call [phone] Problem List: 1. Hemolytic anemia 2. GI bleed 3. Symptomatic anemia
--- NOTE | 2017-05-08 09:37 | Patient Discharge Instructions ---
Discharge Instructions General Discharge Information You were seen/treated for: Hemolytic Anemia Watch for these problems: If you feel weak, experience chest pain, shortness breath, on increased weakness please come back to the emergency department. Special Instructions: Please follow-up with your primary care physician within 7 days of discharge. Please inform your primary care physician of this admission to the hospital. Please inform the primary for this care physician of the treatment administered to you. Please follow-up with a applications development consultant within 7 days. We have provided you referral. Please follow-up with web content specialist in 7 days we have provide your referral. We made you an appointment to see Dr Reagan on 05/15/2017 at 12.45 PM. On 05/10/2017, please have a CBC drawn. The results of these need to be sent to your PCP. Diet Continue normal diet: Yes Activity Full Activity/No Limits: No Acute Coronary Syndrome Inclusion Criteria At DC or during hospital stay patient has or had the following: ACS DIAGNOSIS No Discharge Core Measures Meds if any: Prescribed or Continued at Discharge Meds if any: NOT Prescribed or Continued at Discharge Congestive Heart Failure Inclusion Criteria At DC or during hospital stay patient has or had the following: CHF DIAGNOSIS No Discharge Core Measures Meds if any: Prescribed or Continued at Discharge Meds if any: NOT Prescribed or Continued at Discharge Cerebrovascular accident Inclusion Criteria At DC or during hospital stay patient has or had the following: CVA/TIA Diagnosis No Discharge Core Measures Meds if any: Prescribed or Continued at Discharge Meds if any: NOT Prescribed or Continued at Discharge Venous thromboembolism Inclusion Criteria VTE Diagnosis No VTE Type NONE VTE Confirmed by (Test) NONE Discharge Core Measures - Per Current guidelines, there needs to be overlap - treatment for the first 5 days of Warfarin therapy. - If discharged on Warfarin prior to 5 days of - overlap therapy, the patient will need to be - assessed for post discharge needs including - *Post discharge parental anticoagulation - *Warfarin and/or parental anticoagulation education - *Follow up date to check INR post discharge At least 5 days overlap therapy as Inpatient No Meds if any: Prescribed or Continued at Discharge Note: Overlap Therapy is Warfarin and Anticoagulant Meds if any: NOT Prescribed or Continued at Discharge
--- NOTE | 2017-05-08 13:31 | PN- Infect Dx ---
Subjective Subjective: Afebrile on steroids. He feels improved today, with more strength and energy, though he does note a mild headache. Objective Last 24 Hrs of Vital Signs/I&O Vital Signs Date Time Temp Pulse Resp B/P B/P Pulse O2 O2 Flow FiO2 Mean Ox Delivery Rate 05/08 0557 98.1 85 18 118/58 97 Room Air 05/07 2234 98.5 108 20 124/60 96 05/07 1405 98.9 104 20 128/54 96 Intake & Output 05/08 1600 05/08 0800 05/08 0000 Intake Total 300 350 Output Total Balance 300 350 Intake, Oral 300 350 Physical Exam Other Physical Findings: He appears comfortable in no acute distress Lungs are clear Heart regular rhythm with no murmur Results Last 24 Hours of Lab Results: Laboratory Tests 05/08 05/07 0611 1700 Chemistry Sodium (137 - 145 mmol/L) 139 Potassium (3.5 - 5.1 mmol/L) 4.0 Chloride (98 - 107 mmol/L) 102 Carbon Dioxide (22 - 30 mmol/L) 29 Anion Gap (5 - 16) 9 BUN (9 - 20 mg/dL) 18 Creatinine (0.7 - 1.2 mg/dL) 0.8 Estimated GFR (>60 ml/min) > 60 BUN/Creatinine Ratio (7 - 25 %) 22.5 Total Bilirubin (0.2 - 1.3 mg/dL) 2.9 H Direct Bilirubin (< 0.4 mg/dL) 0.5 H Lactate Dehydrogenase (313 - 618 U/L) 1129 H Hematology CBC w Diff MAN DIFF ORDERED NO MAN DIFF REQ WBC (4.8 - 10.8 /CUMM) 6.3 9.6 RBC (4.70 - 6.10 /CUMM) 1.95 L 2.12 L Hgb (14.0 - 18.0 G/DL) 6.5 *L 7.1 *L Hct (42 - 52 %) 19.5 *L 21.0 L MCV (80.0 - 94.0 FL) 100.0 H 99.1 H MCH (27.0 - 31.0 PG) 33.3 H 33.5 H RDW (11.5 - 14.5 %) 16.7 H 15.5 H Plt Count (130 - 400 /CUMM) 257 280 MPV (7.4 - 10.4 FL) 7.7 7.0 L Gran % (42.2 - 75.2 %) 84.1 H 91.2 H Lymphocytes % (20.5 - 51.1 %) 10.1 L 5.5 L Monocytes % (1.7 - 9.3 %) 4.2 1.6 L Eosinophils % (0 - 5 %) 1.4 1.4 Basophils % (0.0 - 2.0 %) 0.2 0.3 Absolute Granulocytes (1.4 - 6.5 /CUMM) 5.3 8.8 H Segmented Neutrophils (42.2 - 75.2 %) 85 H Band Neutrophils (0.0 - 5.0 %) 2 Absolute Lymphocytes (1.2 - 3.4 /CUMM) 0.6 L 0.5 L Lymphocytes (20.5 - 51.1 %) 8 L Monocytes (1.7 - 9.3 %) 2 Absolute Monocytes (0.10 - 0.60 /CUMM) 0.3 0.2 Absolute Eosinophils (0.0 - 0.7 /CUMM) 0.1 0.1 Absolute Basophils (0.0 - 0.2 /CUMM) 0 0 Metamyelocytes (0.0 - 1.0 %) 2 H Myelocytes (0 - 0 %) 1 H Platelet Estimate (ADEQUATE) VERIFIED BY SMEAR Poikilocytosis 1+ Anisocytosis 1+ Stomatocytes RARE PUBS MCHC (33.0 - 37.0 G/DL) 33.3 33.8 Retic Count (0.5 - 2.0 %) 17.99 H Serology Infectious [place] Titer (NEGATIVE) NEGATIVE Last 24 Hours of Vinh Results: No cultures obtained Assessment/Plan Impression: Overall improved with decreased fatigue and weakness status post several blood transfusions and initiation of steroids for a 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 An infectious etiology seems unlikely, with PCR for Babesia pending. Suggestion: 1. Await PCR for Babesia and Lyme Western blot 2. Further management of his anemia per Hematology 3. Continue to follow off antibiotics pending above
--- NOTE | 2017-05-08 14:28 | NUR ---
SHIFT NOTE PT A&OX3. REPORTS MILD HEADACHE IN THE AM THAT RESOLVED WITH REST AND TYLENOL. H&H 6.5 AND 19.5 FROM MORNING LABS, DR. ALEX FRITZ NOTIFIED OF CRITICAL VALUE. PT ASYMPTOMATIC AND DENIES PAIN/DISCOMFORT. CBC TO BE DRAWN AT 1600 TO CHECK H&H AGAIN. PT REPORTS INCREASE IN APPETITE AND DRINKING COPIOUS FLUIDS. SAFETY MAINTAINED. NEEDS IN REACH. CALLBELL AT BEDSIDE.
[2017-05-08 14:41] VITALS: BP 122/64
--- NOTE | 2017-05-08 16:15 | Cons- Gastroenterology ---
General Information and HPI Consulting Request Date of Consult: 05/08/17 Requested By: JESSI KUMAR,SOLEDAD Reason for Consult: Hematochezia Anemia Source of Information: patient History of Present Illness: 47-year-old white male with approximate 8 years of intermittent blood per rectum. This occurs every couple of months, and is seen on both toilet paper and occasionally in the bowl. It is described as bright red. There has been no rectal pain, constipation, forcing/straining, diarrhea, abdominal pain, black stool, indigestion, heartburn, problems swallowing. It may occur after an evening of drinking alcohol. Is accompanied by a transient feeling of a bump or protrusion in the area of the rectum. The patient is now admitted with several weeks of fatigue and weakness, and recent development of yellow eyes/skin with dark urine (no previous history of liver disease, no itchiness). He was found to have severe anemia. He had transient nausea without vomiting; this disappeared after blood transfusion. Family history is negative for GI malignancy and inflammatory bowel disease; brother has some sort of liver disease (history of substance abuse). Social history: No alcohol abuse, no tobacco, no history of drug use. 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 Allergies/Medications Allergies: Coded Allergies: No Known Allergies (05/06/17) Home Med List: Ibuprofen 600 MG TABLET 1 TAB PO PRN PAIN (Reported) with food Naproxen Sodium (Aleve) 220 MG TABLET 1-3 TAB PO PRN PAIN (Reported) Current Medications: Current Medications Sig/Katey Start time Last Medication Dose Route Stop Time Status Admin Acetaminophen 650 MG .STK-MED ONE 05/08 553 DC PO 05/08 0554 Acetaminophen 650 MG Q6P PRN 05/060 05/08 PO 0552 Acetaminophen/ 1 TAB Q6P PRN 05/06 220 AC 05/06 Hydrocodone Bitart PO 2259 Folic Acid 1 MG DAILY 05/07 1315 05/08 PO 0953 Morphine Sulfate 2 MG Q4P PRN 05/06 220 IV Omeprazole 40 MG DAILY AC 05/07 0700 AC 05/07 PO 0627 Prednisone 125 MG DAILY 05/07 1045 05/08 PO 0953 Sodium Chloride 1,000 ML Q13H 05/06 220 DC 05/06 IV 05/07 2359 2252 Past History Travel History Traveled to [place] past 21 day No Medical History Blood Transfusion Hx: No Neurological: NONE EENT: NONE Cardiovascular: NONE Respiratory: NONE Gastrointestinal: RECTAL BLEED/HEMORRHOIDS Hepatic: NONE Renal: NONE Musculoskeletal: spinal stenosis Psychiatric: NONE Endocrine: NONE Blood Disorders: NONE Cancer(s): NONE 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 Home Services at Home: None Smoking Status: Current Some Day Smoker (smoke cigar sometimes) ETOH Use: occasional use Illicit Drug Use: denies illicit drug use Functional Ability ADLs Independent: dressing, eating, toileting, bathing. Ambulation: independent IADLs Independent: shopping, housework, finances, food prep, telephone, transportation , medication admin. 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 Denies: chills, fever. EENTM: Reports: icterus. Denies: epistaxis. Cardiovascular: Denies: chest pain, edema, orthopena, peripheral edema, syncope. Respiratory: Denies: cough, hemoptysis, short of breath. GI: Reports: see HPI. Genitourinary: Denies: dysuria, hematuria. Musculoskeletal: Denies: muscle stiffness, neck pain. Skin: Reports: jaundice. Denies: lesions. Neurological/Psychological: Reports: headache. Denies: ataxia, cognitive dysfunction. Hematologic/Endocrine: Reports: bleeding. Denies: bruising, polyuria, polydipsia. Exam & Diagnostic Data Vital Signs and I&O Vital Signs Date Time Temp Pulse Resp B/P B/P Pulse O2 O2 Flow FiO2 Mean Ox Delivery Rate 05/08 1441 99.4 85 18 122/64 98 Room Air 05/08 0557 98.1 85 18 118/58 97 Room Air 05/07 2234 98.5 108 20 124/60 96 Intake & Output 05/08 1600 05/08 0400 05/07 1600 05/07 0400 05/06 1600 05/06 0400 Intake Total 1781 066 4019 1360 Output Total 950 Balance 1331 459 4286 1360 Intake, IV 1300 1000 Intake, Oral 1726 329 4048 360 Number 1 Bowel Movements Output, Urine 950 Patient 275 lb 280 lb Weight Weight Reported by Patient Reported by Patient Measurement Method Physical Exam: Well-developed well-nourished, in no apparent distress. Alert and oriented with normal cognition and conversation. Skin normal without rash, lesion, spider telangiectasias, palmar erythema. No adenopathy. Sclera are icteric. No oropharyngeal lesion. Neck is supple without thyromegaly or mass. Heart regular rhythm. Lungs clear bilaterally, anterolateral. No gynecomastia. Abdomen is soft and nondistended with normal bowel sounds and no bruit or rub; there is a palpable spleen tip, but no hepatomegaly; no mass, tenderness, hernia. Rectal examination without anal, perianal or perineal lesions; no internal rectal lesion; stool light brown, trace Hemoccult-positive. Extremities without clubbing, cyanosis or edema. Pulses are intact. No asterixis. Results Pertinent Lab Results: Laboratory Tests 05/08 05/08 1600 0611 Chemistry Sodium (137 - 145 mmol/L) 139 Potassium (3.5 - 5.1 mmol/L) 4.0 Chloride (98 - 107 mmol/L) 102 Carbon Dioxide (22 - 30 mmol/L) 29 Anion Gap (5 - 16) 9 BUN (9 - 20 mg/dL) 18 Creatinine (0.7 - 1.2 mg/dL) 0.8 Estimated GFR (>60 ml/min) > 60 BUN/Creatinine Ratio (7 - 25 %) 22.5 Total Bilirubin (0.2 - 1.3 mg/dL) 2.9 H Direct Bilirubin (< 0.4 mg/dL) 0.5 H Lactate Dehydrogenase (313 - 618 U/L) 1129 H Hematology CBC w Diff Pending MAN DIFF ORDERED WBC (4.8 - 10.8 /CUMM) Pending 6.3 RBC (4.70 - 6.10 /CUMM) Pending 1.95 L Hgb (14.0 - 18.0 G/DL) Pending 6.5 *L Hct (42 - 52 %) Pending 19.5 *L MCV (80.0 - 94.0 FL) Pending 100.0 H MCH (27.0 - 31.0 PG) Pending 33.3 H RDW (11.5 - 14.5 %) Pending 16.7 H Plt Count (130 - 400 /CUMM) Pending 257 MPV (7.4 - 10.4 FL) Pending 7.7 Gran % (42.2 - 75.2 %) 84.1 H Lymphocytes % (20.5 - 51.1 %) 10.1 L Monocytes % (1.7 - 9.3 %) 4.2 Eosinophils % (0 - 5 %) 1.4 Basophils % (0.0 - 2.0 %) 0.2 Absolute Granulocytes (1.4 - 6.5 /CUMM) 5.3 Segmented Neutrophils (42.2 - 75.2 %) 85 H Band Neutrophils (0.0 - 5.0 %) 2 Absolute Lymphocytes (1.2 - 3.4 /CUMM) 0.6 L Lymphocytes (20.5 - 51.1 %) 8 L Monocytes (1.7 - 9.3 %) 2 Absolute Monocytes (0.10 - 0.60 /CUMM) 0.3 Absolute Eosinophils (0.0 - 0.7 /CUMM) 0.1 Absolute Basophils (0.0 - 0.2 /CUMM) 0 Metamyelocytes (0.0 - 1.0 %) 2 H Myelocytes (0 - 0 %) 1 H Platelet Estimate (ADEQUATE) VERIFIED BY SMEAR Poikilocytosis 1+ Anisocytosis 1+ Stomatocytes RARE PUBS MCHC (33.0 - 37.0 G/DL) Pending 33.3 Retic Count (0.5 - 2.0 %) 17.99 H 06/06 06/06 1700 0650 Chemistry Sodium (137 - 145 mmol/L) 139 Potassium (3.5 - 5.1 mmol/L) 4.2 Chloride (98 - 107 mmol/L) 103 Carbon Dioxide (22 - 30 mmol/L) 27 Anion Gap (5 - 16) 9 BUN (9 - 20 mg/dL) 10 Creatinine (0.7 - 1.2 mg/dL) 0.7 Estimated GFR (>60 ml/min) > 60 BUN/Creatinine Ratio (7 - 25 %) 14.3 Total Bilirubin (0.2 - 1.3 mg/dL) 3.1 H Direct Bilirubin (< 0.4 mg/dL) 0.4 AST (17 - 59 U/L) 28 ALT (21 - 72 U/L) 40 Alkaline Phosphatase (< 127 U/L) 59 Total Protein (6.3 - 8.2 g/dL) 6.1 L Albumin (3.5 - 5.0 g/dL) 3.5 Hematology CBC w Diff NO MAN DIFF REQ MAN DIFF ORDERED WBC (4.8 - 10.8 /CUMM) 9.6 5.7 RBC (4.70 - 6.10 /CUMM) 2.12 L 1.47 L Hgb (14.0 - 18.0 G/DL) 7.1 *L 5.2 *L Hct (42 - 52 %) 21.0 L 15.1 *L MCV (80.0 - 94.0 FL) 99.1 H 103.1 H MCH (27.0 - 31.0 PG) 33.5 H 35.6 H RDW (11.5 - 14.5 %) 15.5 H 15.3 H Plt Count (130 - 400 /CUMM) 280 240 MPV (7.4 - 10.4 FL) 7.0 L 8.0 Gran % (42.2 - 75.2 %) 91.2 H 85.6 H Lymphocytes % (20.5 - 51.1 %) 5.5 L 6.6 L Monocytes % (1.7 - 9.3 %) 1.6 L 4.3 Eosinophils % (0 - 5 %) 1.4 3.2 Basophils % (0.0 - 2.0 %) 0.3 0.3 Absolute Granulocytes (1.4 - 6.5 /CUMM) 8.8 H 4.9 Segmented Neutrophils (42.2 - 75.2 %) 76 H Band Neutrophils (0.0 - 5.0 %) 6 H Absolute Lymphocytes (1.2 - 3.4 /CUMM) 0.5 L 0.4 L Lymphocytes (20.5 - 51.1 %) 6 L Monocytes (1.7 - 9.3 %) 4 Absolute Monocytes (0.10 - 0.60 /CUMM) 0.2 0.2 Eosinophils (0 - 5.0 %) 4 Absolute Eosinophils (0.0 - 0.7 /CUMM) 0.1 0.2 Absolute Basophils (0.0 - 0.2 /CUMM) 0 0 Metamyelocytes (0.0 - 1.0 %) 3 H Myelocytes (0 - 0 %) 1 H Platelet Estimate (ADEQUATE) ADEQUATE Polychromasia 2+ Basophilic Stippling SLIGHT Anisocytosis 1+ Ovalocytes FEW PUBS MCHC (33.0 - 37.0 G/DL) 33.8 34.5 Serology Infectious [place] Titer (NEGATIVE) NEGATIVE 05/07 05/06 05/06 05/06 0600 2250 1620 1620 Hematology Haptoglobin (43 - 212 mg/dL) <15 L Serology Babesia microti DNA PCR Pending Lyme Disease Antibody (RATIO) 5.20 *H Lyme Ab (Western Blot) Pending Lyme IgG 18 kDa Band Pending Lyme IgG 23 kDa Band Pending Lyme IgG 28 kDa Band Pending Lyme IgG 30 kDa Band Pending Lyme IgG 39 kDa Band Pending Lyme IgG 41 kDa Band Pending Lyme IgG 45 kDa Band Pending Lyme IgG 58 kDa Band Pending Lyme IgG 66 kDa Band Pending Lyme IgG 93 kDa Band Pending Lyme IgM (Western Blot) Pending Lyme IgM 23 kDa Band Pending Lyme IgM 39 kDa Band Pending Lyme IgM 41 kDa Band Pending 05/06 05/06 1620 1620 Chemistry Sodium (137 - 145 mmol/L) 138 Potassium (3.5 - 5.1 mmol/L) 3.7 Chloride (98 - 107 mmol/L) 101 Carbon Dioxide (22 - 30 mmol/L) 26 Anion Gap (5 - 16) 11 BUN (9 - 20 mg/dL) 14 Creatinine (0.7 - 1.2 mg/dL) 0.8 Estimated GFR (>60 ml/min) > 60 BUN/Creatinine Ratio (7 - 25 %) 17.5 Glucose (65 - 99 mg/dL) 112 H Calcium (8.4 - 10.2 mg/dL) 9.3 Iron (49 - 181 ug/dL) 146 TIBC (261 - 462 ug/dL) 303 Ferritin (17.9 - 464 ng/mL) 667.0 H Total Bilirubin (0.2 - 1.3 mg/dL) 2.7 H Direct Bilirubin (< 0.4 mg/dL) 0.7 H AST (17 - 59 U/L) 28 ALT (21 - 72 U/L) 37 Alkaline Phosphatase (< 127 U/L) 63 Lactate Dehydrogenase (313 - 618 U/L) 1316 H Creatine Kinase (55 - 170 U/L) 81 Troponin I (<0.11 ng/ml) < 0.01 Total Protein (6.3 - 8.2 g/dL) 6.8 Albumin (3.5 - 5.0 g/dL) 4.2 Globulin (1.9 - 4.2 gm/dL) 2.6 Albumin/Globulin Ratio (1.1 - 2.2 %) 1.6 Vitamin B12 (239 - 931 pg/mL) 518 Folate (2.76 - 20.0 ng/mL) 6.2 TSH (0.270 - 4.200 uIU/mL) 2.450 Free T4 (0.64 - 1.79 ng/dL) 1.26 Coagulation D-Dimer High Sensitivty (0 - 243 ng/ml) 253 H Hematology CBC w Diff MAN DIFF ORDERED WBC (4.8 - 10.8 /CUMM) 6.6 RBC (4.70 - 6.10 /CUMM) 1.78 L Hgb (14.0 - 18.0 G/DL) 5.8 *L Hct (42 - 52 %) 17.5 *L MCV (80.0 - 94.0 FL) 97.9 H MCH (27.0 - 31.0 PG) 32.4 H RDW (11.5 - 14.5 %) 14.5 Plt Count (130 - 400 /CUMM) 248 MPV (7.4 - 10.4 FL) 7.4 Gran % (42.2 - 75.2 %) 82.3 H Lymphocytes % (20.5 - 51.1 %) 9.4 L Monocytes % (1.7 - 9.3 %) 4.0 Eosinophils % (0 - 5 %) 3.7 Basophils % (0.0 - 2.0 %) 0.6 Absolute Granulocytes (1.4 - 6.5 /CUMM) 5.4 Segmented Neutrophils (42.2 - 75.2 %) 79 H Band Neutrophils (0.0 - 5.0 %) 3 Absolute Lymphocytes (1.2 - 3.4 /CUMM) 0.6 L Lymphocytes (20.5 - 51.1 %) 8 L Monocytes (1.7 - 9.3 %) 2 Absolute Monocytes (0.10 - 0.60 /CUMM) 0.3 Eosinophils (0 - 5.0 %) 5 Absolute Eosinophils (0.0 - 0.7 /CUMM) 0.2 Basophils (0.0 - 2.0 %) 1 Absolute Basophils (0.0 - 0.2 /CUMM) 0 Metamyelocytes (0.0 - 1.0 %) 2 H Nucleated RBCs (0.0 - 0.0 /100WBC) 1 H Platelet Estimate (ADEQUATE) VERIFIED BY SMEAR Polychromasia 1+ Basophilic Stippling RARE Anisocytosis 1+ PUBS MCHC (33.0 - 37.0 G/DL) 33.1 Retic Count (0.5 - 2.0 %) 12.3 H Other Body Source Fld Total RBCs Counted (%) 100 Serology A.phagocytophil DNA PCR Pending Hepatitis A IgM Ab (NONREACTIVE) NONREACTIVE Hep Bs Antigen (NONREACTIVE) NONREACTIVE Hep B Core IgM Ab Conf (NONREACTIVE) NONREACTIVE Hepatitis C Antibody (NONREACTIVE) NONREACTIVE HIV 1&2 Ab Western Blot (NONREACTIVE) NONREACTIVE Toxicology Lead Sample Type Pending Lead Pending Urines Urine Color (YEL,AMB,STR) YEL Urine Clarity (CLEAR) CLEAR Urine pH (5.0 - 8.0) 6.0 Ur Specific [place] (1.001 - 1.035) 1.020 Urine Protein (NEG,<30 MG/DL) NEG Urine Ketones (NEG) NEG Urine Nitrite (NEG) NEG Urine Bilirubin (NEG) NEG@ICTO Urine Urobilinogen (0.1 - 1.0 EU/dl) 1.0 Ur Leukocyte Esterase (NEG) NEG Ur Microscopic EXAM NOT REQUIRED Urine Hemoglobin (NEG) NEG Urine Glucose (N MG/DL) NEG Assessment/Plan Assessment/Recommendations: Hematochezia, long-standing and sporadic, accompanied by a protruding anal "presence". Most likely outlet bleeding, secondary to internal hemorrhoids. The anemia seems to be secondary to hemolysis. No other gastrointestinal symptoms, iron deficiency, pertinent family history. Recommendations * No need for omeprazole * Management of anemia as per hematology * Adequate dietary fiber intake * Outpatient colonoscopy (patient agrees) Thank you very much for allowing my participation in this case. Please reconsult or call as needed during this hospitalization. I will follow the patient after discharge. Consult Acknowledgment - Thank you for your consult request.
[2017-05-08 16:59] LABS: ABSOLUTE BASOPHIL COUNT 0 /CUMM (0.0-0.2); ABSOLUTE EOSINOPHIL COUNT 0 /CUMM (0.0-0.7); ABSOLUTE GRANULOCYTE CT 7.5 /CUMM (1.4-6.5); ABSOLUTE LYMPH COUNT 0.6 /CUMM (1.2-3.4); ABSOLUTE MONOCYTE COUNT 0.1 /CUMM (0.10-0.60); BASOPHIL % 0.2 % (0.0-2.0); EOSINOPHIL % 0.1 % (0-5); GRANULOCYTE % 91.9 % (42.2-75.2); MEAN CORPUSCULAR HGB 33.3 PG (27.0-31.0); MEAN CORPUSCULAR HGB CONC 33.1 G/DL (33.0-37.0); MEAN CORPUSCULAR VOLUME 100.6 FL (80.0-94.0); MEAN PLATELET VOLUME 7.7 FL (7.4-10.4); PLATELET COUNT 309 /CUMM (130-400); RBC DISTRIBUTION WIDTH 17.2 % (11.5-14.5); RED BLOOD CELL CT 2.28 /CUMM (4.70-6.10); WHITE BLOOD CELL COUNT 8.1 /CUMM (4.8-10.8)
--- NOTE | 2017-05-08 17:35 | Discharge Summary ---
Visit Information Visit Dates Admission Date: 05/06/17 Discharge Date: 05/09/17 Hospital Course Course Attending Physician: Dr Cruz Dempsey Primary Care Physician: ELPIDIO KUMAR,[facility] Hospital Course: Mr Stanley is 47-year-old male with PMH of spinal stenosis on NSAIDs, who presented to the ED at [facility] complaining of fatigue, shortness of breath, tachycardia on minimal exertion, jaundice, dizziness, cola colored urine. He was found to have an H/H of 5.8/17.5 (Last Hgb was 8.0 on 05/03), elevated LDH and elevated indirect bilirubin. FAYE was positive for IgG and C3. Mr Stanley was admitted to general medicine and below is a summary of the care he received under us. #Autoimmune hemolytic anemia of unclear etiology At the time of admission the patient was symptomatic and noted to have headaches , dyspnea, palpitations and fatigue. He was transfused 2 units of PRBCs which he responded adequately to. We also obtained an infectious diseases and hematology and oncology consult. Throughout the course of his admission his bilirubin and LDH was monitored. He was started on prednisone at 125 mg and folic acid on day two of admission. Initial tests for Lyme, Anaplasma and babesiosis were negative. A peripharel smear did not revel any ring forms, suggesting babesia. Serologies were non reactive for HIV, hepatitis C, hepatitis B and hepatitis A. Prior to discharge an H&H was drawn to ensure that the patient was hemodynamically stable. Mr Stanley was also instructed to get a CBC done on 05/10/2017 and forward the results of these to his primary care physician. He was given instructions to follow-up with the oncologist on 2016 and was instructed to continue his prednisone and folic acid till then. Once more stable he would then be able to consider an alternative oncologist if he so desires if this were more convenient. #History hematochezia Patient was guaiac positive in the ED. While admitted he received a consultation with a fitting room checker. Patient was given a referral to follow- up as an outpatient, and would be considered for a colonoscopy. #History of spinal stenosis While the patient was admitted we kept him off any NSAIDs owing to previous history of acute blood loss anemia. Pain was managed with a combination of morphine and Tylenol. At the time of discharge it had been recommended that he stops NSAID use. #DVT prophylaxis Patient was maintained on ALPS throughout the admission. Allergies: Coded Allergies: No Known Allergies (05/06/17) Pertinent Lab Results: Lyme Disease Ab: 5.20 EXAM TYPE: RAD - XRY-CHEST XRAY, PA AND LATERAL Shortness of breath COMPARISON: None TECHNIQUE: 2 views of the chest were obtained. FINDINGS: The left lateral costophrenic angle is not included in this exam. The cardiomediastinal silhouette and pulmonary vascularity are normal. The lungs are clear. No pleural effusions. No pneumothorax. The visualized bony thorax is within normal limits. IMPRESSION: No acute cardiopulmonary findings within limitations of exam. [facility] BY: [facility] SERVICE DATE: 05/06/17 EXAM TYPE: CAT - CT ABD & PELVIS W IV CONTRAST EXAMINATION: CT ABDOMEN AND PELVIS WITH CONTRAST CLINICAL INFORMATION: Anemia. Jaundice. Rule out malignancy. COMPARISON: None. TECHNIQUE: Multidetector volumetric imaging was performed from the lung bases through the pubic symphysis following the uneventful administration of: Oral contrast: No Intravenous contrast: 94 cc Optiray 320 Sagittal and coronal reformatted images were obtained on the technologist workstation. Total exam dose-length product 1109 mGy-cm FINDINGS: LUNG BASES: There is streaky atelectasis vs. scar at the lung bases. No focal consolidation or mass. LIVER, GALLBLADDER, AND BILIARY TREE: The liver is normal in size, shape, and attenuation. No focal hepatic lesion or biliary ductal dilatation is present. The gallbladder is unremarkable with no evidence of radiopaque gallstones, gallbladder wall thickening, or obvious pericholecystic inflammatory changes. PANCREAS: Normal; no mass or surrounding fluid. SPLEEN: Splenomegaly, measuring 16.6 cm in greatest transaxial dimension, 16.3 cm craniocaudal. No focal splenic lesion seen however. ADRENAL GLANDS: Normal; no mass. KIDNEYS AND URETERS: The kidneys are normal in size, shape, and attenuation. No hydronephrosis, hydroureter, or calculi. GASTROINTESTINAL TRACT: Stomach and small bowel non-dilated. Mild sigmoid diverticulosis with scattered diverticula elsewhere. No colonic wall thickening or pericolonic inflammatory changes. Normal appendix. ABDOMINAL WALL: Tiny fat-containing umbilical hernia. There is fat within both inguinal canals bilaterally. LYMPHOVASCULAR STRUCTURES: There are prominent retroperitoneal lymph nodes but these are not pathologically enlarged by short axis CT size criteria. The aorta is unremarkable. BLADDER: No focal mass or wall thickening seen. No bladder calculi. PELVIC VISCERA: The prostate and seminal vesicles are normal. OSSEOUS STRUCTURES: Severe degenerative changes of the bilateral hips, left greater than right, greater than expected for age. Multilevel degenerative changes of the thoracolumbar spine. IMPRESSION: No biliary ductal dilatation. No focal liver or pancreatic mass. Nonspecific splenomegaly. No focal splenic lesion seen. DICTATED BY: GRACIELA MICHAUD MD SERVICE DATE: 05/06/17 EXAM TYPE: CAT - CT HEAD WO IV CONTRAST EXAMINATION: CT HEAD WITHOUT CONTRAST CLINICAL INFORMATION: Headache. COMPARISON: None TECHNIQUE: Contiguous axial imaging was performed from the skull base to vertex without intravenous administration of contrast. DLP: 617.14 mGy-cm FINDINGS: There is no evidence of acute intracranial hemorrhage or territorial infarction. No abnormal mass effect or midline shift is seen. Ramirez to white matter differentiation is well preserved. No extra-axial fluid collections are identified. The ventricles are normal in size. There is no abnormal attenuation within the brain parenchyma. The osseous structures and soft tissues are normal. The mastoid air cells and visualized portions of the paranasal sinuses are well aerated. IMPRESSION: No acute intracranial pathology. DICTATED BY: GAVIN PARK MD Disposition Summary Disposition Principal Diagnosis: Autoimmune hemolytic anemia of unclear etiology Additional Diagnosis: History hematochezia History of spinal stenosis Discharge Disposition: home or self care Discharge Instructions General Discharge Information Code Status: Full Code Patient's Diet: Regular Diet Patient's Activity: As Tolerated Follow-Up Instructions/Appts: Please follow-up with your primary care physician within 7 days of discharge. Please inform your primary care physician of this admission to the hospital. Please inform the primary for this care physician of the treatment administered to you. Please follow-up with a fitting room checker within 7 days. We have provided you referral. Please follow-up with gum machine filler in 7 days we have provide your referral. We made you an appointment to see Dr Reagan on 05/15/2017 at 12.45 PM. On 05/10/2017, please have a CBC drawn. The results of these need to be sent to your PCP. Medications at Discharge Discharge Medications: Stop taking the following medications: Naproxen Sodium (Aleve) 220 MG TABLET ORAL as needed for PAIN Ibuprofen (Ibuprofen) 600 MG TABLET ORAL as needed for PAIN Start taking the following new medications: Prednisone (Prednisone) 20 MG TABLET 6 Tablet ORAL DAILY Qty = 42 No Refills Instructions: 6 tablets to be taken daily. total daily dose is 125 mg daily Comments: Last Taken: 05/09/17 Time: 0900 Prednisone (Prednisone) 5 MG TABLET 1 Tablet ORAL DAILY Qty = 7 No Refills Instructions: take this daily in adition to the 120 mg for a total of 125 mg daily. Comments: Last Taken: 05/09/17 Time: 0900 Folic Acid (Folic Acid) 1 MG TABLET 1 Tablet ORAL DAILY Qty = 30 No Refills Comments: Last Taken: 05/09/17 Time: 0900 Copies To: JOHN MAGALLANES MD; PRETTY KUMAR,DEREK SIBLEY MD,TESSA Monroe
[2017-05-08 22:34] VITALS: BP 128/60
[2017-05-09 05:39] LABS: ABSOLUTE BASOPHIL COUNT 0 /CUMM (0.0-0.2); ABSOLUTE EOSINOPHIL COUNT 0.1 /CUMM (0.0-0.7); ABSOLUTE GRANULOCYTE CT 6.3 /CUMM (1.4-6.5); ABSOLUTE LYMPH COUNT 0.8 /CUMM (1.2-3.4); ABSOLUTE MONOCYTE COUNT 0.3 /CUMM (0.10-0.60); BASOPHIL % 0.1 % (0.0-2.0); EOSINOPHIL % 0.8 % (0-5); GRANULOCYTE % 84.2 % (42.2-75.2); HEMATOCRIT 22.2 % (42-52); MEAN CORPUSCULAR HGB CONC 32.5 G/DL (33.0-37.0); MEAN CORPUSCULAR VOLUME 101.2 FL (80.0-94.0); MEAN PLATELET VOLUME 7.4 FL (7.4-10.4); PLATELET COUNT 299 /CUMM (130-400); RBC DISTRIBUTION WIDTH 18.1 % (11.5-14.5); RED BLOOD CELL CT 2.19 /CUMM (4.70-6.10); WHITE BLOOD CELL COUNT 7.5 /CUMM (4.8-10.8)
--- NOTE | 2017-05-09 06:07 | PN- Housestaff ---
CATRINA KUMAR,[facility] 05/09/17 0606: Subjective Follow-up For: Symptomatic Anemia Subjective: Mr Stanley was seen and examined this morning. Feels like "dynamite" and really good this morning. Is able to ambulate. Slight headache mentioned this morning, much better than past previous 48 hours however. Denies fever, chills, nausea and vomiting. Tolerating PO intake well. Review of Systems Constitutional: Reports: see HPI. Objective Last 24 Hrs of Vital Signs/I&O Vital Signs Date Time Temp Pulse Resp B/P B/P Pulse O2 O2 Flow FiO2 Mean Ox Delivery Rate 05/08 2234 98.4 92 18 128/60 98 Room Air 05/08 1441 99.4 85 18 122/64 98 Room Air Intake & Output 05/09 0800 05/09 0000 05/08 1600 Intake Total 60 1300 Output Total Balance 60 1300 Intake, IV 10 Intake, Oral 50 1300 Number 1 Bowel Movements Physical Exam General Appearance: Alert, Oriented X3, Cooperative Skin: No Rashes Skin Temp/Moisture Exam: Cool/Dry Cardiovascular: Regular Rate, Normal S1, Normal S2 Lungs: Clear to Auscultation Abdomen: Normal Bowel Sounds, Soft, No Tenderness Neurological: Normal Gait, Normal Speech, Strength at 5/5 X4 Ext Extremities: No Clubbing, No Cyanosis, No Edema Current Medications: Current Medications Sig/Katey Start time Last Medication Dose Route Stop Time Status Admin Acetaminophen 650 MG Q6P PRN 05/06 2200 AC 05/08 PO 0552 Acetaminophen/ 1 TAB Q6P PRN 05/06 2200 AC 05/06 Hydrocodone Bitart PO 2259 Folic Acid 1 MG DAILY 05/07 1315 AC 05/08 PO 0953 Morphine Sulfate 2 MG Q4P PRN 05/06 2200 AC IV Omeprazole 40 MG DAILY AC 05/07 0700 DC 05/07 PO 0627 Prednisone 125 MG DAILY 05/07 1045 AC 05/08 PO 0953 Last 24 Hrs of Lab/Vinh Results Last 24 Hrs of Labs/Mics: Laboratory Tests 05/09/17 0515: Anion Gap 11, Estimated GFR > 60, BUN/Creatinine Ratio 22.5, Total Bilirubin 2.6 H, Direct Bilirubin 0.3, Lactate Dehydrogenase 1052 H, CBC w Diff MAN DIFF ORDERED, RBC 2.19 L, MCV 101.2 H, MCH 33.0 H, RDW 18.1 H, MPV 7.4, Gran % 84.2 H, Lymphocytes % 10.7 L, Monocytes % 4.2, Eosinophils % 0.8, Basophils % 0.1, Absolute Granulocytes 6.3, Segmented Neutrophils 78 H, Band Neutrophils 3, Absolute Lymphocytes 0.8 L, Lymphocytes 15 L, Monocytes 3, Absolute Monocytes 0.3, Eosinophils 1, Absolute Eosinophils 0.1, Absolute Basophils 0, Platelet Estimate ADEQUATE, Polychromasia 2+, Poikilocytosis 2+, Anisocytosis 1+, Macrocytic Cells 1+, Stomatocytes RARE, PUBS MCHC 32.5 L, Retic Count 22.07 H, Fld Total RBCs Counted 100 05/08/17 1600: CBC w Diff NO MAN DIFF REQ, RBC 2.28 L, MCV 100.6 H, MCH 33.3 H, RDW 17.2 H, MPV 7.7, Gran % 91.9 H, Lymphocytes % 6.8 L, Monocytes % 1.0 L, Eosinophils % 0.1, Basophils % 0.2, Absolute Granulocytes 7.5 H, Absolute Lymphocytes 0.6 L, Absolute Monocytes 0.1 L, Absolute Eosinophils 0, Absolute Basophils 0, PUBS MCHC 33.1 Assessment/Plan Assessment: Mr Stanley is 47-year-old male with PMH of spinal stenosis on NSAIDs, presented for fatigue, shortness of breath, tachycardia on minimal exertion, jaundice, dizziness, cola colored urine, found to have h/h of 5.8/17.5 (hb was 8 on 05/03). No recent obvious bleeding reported, guaiac positive stool in ED, hx of intermittent bright red blood per rectum over the past 7 years, 2-3 episodes/ month, 1/4 cup blood each time. He takes ibuprofen and naproxen up to 3 times daily for back pain. CT showed nonspecific splenomegaly (16.6 cm X 16.3 cm). Labs: h/h 5.8/17.5, retic count 12.3H, MCV 97.9, RDW 14.5, rare basophilic stippling, total bilirubin 2.7H, direct bilirubin 0.7H, LDH 1316, No history of being transfured in the past. Does have a dog, lives in the [place] and is exposed to ticks very often. Patient does state that he was exposed to a tick bite approximately 4 weeks ago. Was bitten by a tick in the groin. Patient admitted to general medicine for symptomatic anemia. # Symptomatic anemia, likely due to hemolytic anemia in the setting of recently being exposed to a tick. * PCR negative for Babesia * Continue High Dose steroids 1 mg/kg. 125 mg daily. * Folic Acid, 1 mg daily. * 2 units of PRBCs was transfused 05/08/2017. * H&H this a.m. 7.2 and 22.2 respectively. H&H was repeated this evening to make sure the patient was stable for discharge. He was discharged with instructions to follow-up with a CBC on 05/10/2017. The results of this to be forwarded to his primary care physician. * Retic Count this AM: 22.07 * In am: LDH, Billirubin, Reticulocyte count. #History of Blood Loss * Can have colonoscopy as an outpatient. * CBC daily. If acute signs of bleeding, inform GI Stat. # Hx of spinal stenosis * Keep off NSAID in the setting of ABLA. Patient does have a history of long standing NSAID use, due to spinal stenosis. * Manage pain with morphine and Tylenol. Diet: Regular DVT ppx: ALPS FULL CODE Problem List: 1. Hemolytic anemia 2. Symptomatic anemia Pain Ratin Pain Location: No Pain Pain Goal: Remain pain free Pain Plan: Tylenol Tomorrow's Labs & Rationales: No Labs needed, YEFRI PERERA MD 05/09/17 1405: Attending MD Review Statement Attending Statement Attending MD Statement: examined this patient, discuss w/resident/PA/[employer], agreed w/resident/PA/[employer], reviewed EMR data (avail) Attending Assessment/Plan: 47M PMH spinal stenosis presenting with headache, weakness, dyspnea on minimal exertion, and pallor in the setting of symptomatic anemia with Hgb 5.4. Patient reports no new medications or travel. Received 2 units pRBC yesterday, today reports he feels much better. Mild headache this morning that resolved. He is currently walking briskly around the floor without fatigue, lightheadedness, or dyspnea. Reticulocyte count 17%. Hgb 7.6 last night, 7.2 this morning. 1. Symptomatic anemia 2. Dyspnea on exertion 3. Autoimmune hemolytic anemia Plan - Continue on general medicine - Repeat CBC in the afternoon, if improved patient may be discharged home, otherwise will have to stay for further monitoring - Continue Prednisone - ID and hematology consults - Lyme, Babesiosis, Anaplasma sent - ALPS for DVT PPx - Anticipated discharge tomorrow. Please send CMR to pharmacy for review if not discharged today. discharged today.
[2017-05-09 06:25] VITALS: BP 148/80
--- NOTE | 2017-05-09 08:18 | PN- Hematology ---
Subjective Subjective: He is feeling better. He has more energy. He feels he had more color in him. He denies any bleeding issues. Review of Systems: Constitutional: Denies: chills, fever, weakness. Cardiovascular: Denies: chest pain. Gastrointestinal: Denies: melena, bloody stool. Skin: Reports: jaundice. Neurological/Psychological: Reports: headache. Hematologic/Endocrine: Denies: bruising, bleeding. All Other Systems: Reviewed and Negative Objective Vital Signs and I&Os Vital Signs Date Time Temp Pulse Resp B/P B/P Pulse O2 O2 Flow FiO2 Mean Ox Delivery Rate 05/09 625 98.6 95 18 148/80 99 Room Air 05/08 2234 98.4 92 18 128/60 98 Room Air 05/08 1441 99.4 85 18 122/64 98 Room Air Intake & Output 05/09 1600 05/09 0805/09 0000 05/08 1600 05/08 0800 05/08 0000 Intake Total 338 97 8885 300 350 Output Total Balance 767 19 6428 300 350 Intake, IV 10 Intake, Oral 452 82 6728 300 350 Number 1 Bowel Movements Physical Exam: General Appearance: well developed/nourished, no apparent distress, alert, awake , comfortable Head: atraumatic, normal appearance Eyes: Bilateral: PERRL, pale conjunctivae. Ears, Nose, Throat: normal pharynx, sublingual jaundice Cardiovascular: regular rate/rhythm Gastrointestinal: normal bowel sounds, soft, non-tender, splenomegaly Extremities: normal inspection, normal capillary refill, no edema Neurologic/Psych: awake, alert, oriented x 3 Skin: jaundice Current Medications: Current Medications Sig/Katey Start time Last Medication Dose Route Stop Time Status Admin Acetaminophen 650 MG Q6P PRN 05/06 2200 AC 05/08 PO 0552 Acetaminophen/ 1 TAB Q6P PRN 05/06 2200 AC 05/06 Hydrocodone Bitart PO 225 Folic Acid 1 MG DAILY 05/07 1315 AC 05/08 PO 0953 Morphine Sulfate 2 MG Q4P PRN 05/06 220 AC IV Omeprazole 40 MG DAILY AC 05/07 0700 DC 05/07 PO 0627 Prednisone 125 MG DAILY 05/07 1045 AC 05/08 PO 0953 Results Last 24 Hours of Lab Results: Laboratory Tests 05/09 05/08 0515 1600 Chemistry Sodium (137 - 145 mmol/L) 140 Potassium (3.5 - 5.1 mmol/L) 4.1 Chloride (98 - 107 mmol/L) 102 Carbon Dioxide (22 - 30 mmol/L) 27 Anion Gap (5 - 16) 11 BUN (9 - 20 mg/dL) 18 Creatinine (0.7 - 1.2 mg/dL) 0.8 Estimated GFR (>60 ml/min) > 60 BUN/Creatinine Ratio (7 - 25 %) 22.5 Total Bilirubin (0.2 - 1.3 mg/dL) 2.6 H Direct Bilirubin (< 0.4 mg/dL) 0.3 Lactate Dehydrogenase (313 - 618 U/L) 1052 H Hematology CBC w Diff MAN DIFF ORDERED NO MAN DIFF REQ WBC (4.8 - 10.8 /CUMM) 7.5 8.1 RBC (4.70 - 6.10 /CUMM) 2.19 L 2.28 L Hgb (14.0 - 18.0 G/DL) 7.2 *L 7.6 L Hct (42 - 52 %) 22.2 L 23.0 L MCV (80.0 - 94.0 FL) 101.2 H 100.6 H MCH (27.0 - 31.0 PG) 33.0 H 33.3 H RDW (11.5 - 14.5 %) 18.1 H 17.2 H Plt Count (130 - 400 /CUMM) 299 309 MPV (7.4 - 10.4 FL) 7.4 7.7 Gran % (42.2 - 75.2 %) 84.2 H 91.9 H Lymphocytes % (20.5 - 51.1 %) 10.7 L 6.8 L Monocytes % (1.7 - 9.3 %) 4.2 1.0 L Eosinophils % (0 - 5 %) 0.8 0.1 Basophils % (0.0 - 2.0 %) 0.1 0.2 Absolute Granulocytes (1.4 - 6.5 /CUMM) 6.3 7.5 H Segmented Neutrophils (42.2 - 75.2 %) 78 H Band Neutrophils (0.0 - 5.0 %) 3 Absolute Lymphocytes (1.2 - 3.4 /CUMM) 0.8 L 0.6 L Lymphocytes (20.5 - 51.1 %) 15 L Monocytes (1.7 - 9.3 %) 3 Absolute Monocytes (0.10 - 0.60 /CUMM) 0.3 0.1 L Eosinophils (0 - 5.0 %) 1 Absolute Eosinophils (0.0 - 0.7 /CUMM) 0.1 0 Absolute Basophils (0.0 - 0.2 /CUMM) 0 0 Platelet Estimate (ADEQUATE) ADEQUATE Polychromasia 2+ Poikilocytosis 2+ Anisocytosis 1+ Macrocytic Cells 1+ Stomatocytes RARE PUBS MCHC (33.0 - 37.0 G/DL) 32.5 L 33.1 Retic Count (0.5 - 2.0 %) 22.07 H Other Body Source Fld Total RBCs Counted (%) 100 Assessment/Plan Assessment/Recommendations: Ms. Stanley is a 47-year-old male without significant medical history except for hemorrhoidal bleeding who presented with severe symptomatic anemia with palpitation, headaches, dyspnea, and fatigue. On admission, he was noted to have splenomegaly, hematocrit of 17.5%, elevated LDH, and elevated indirect bilirubin. FAYE was positive for IgG and C3. He had nonspecific cold agglutinin and warm auto-immune antibody. 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 He has been transfused with 2 units of pRBC. His hemoglobin has improved and is stable. Reticulocytes count is increase. LDH and bilirubin are improving. He is on folic acid and prednisone 1 mg/kg. He will continue on this current therapy. Etiology is likely idiopathic but infectious etiology is still a potential. He would like to have follow up with a hematology in [place]. Dr. Cunningham, Dr. Aaron, Dr. Rodriguez, and Dr. Ricketts are possible hematology he may see there. Recommendations: 1. Continue prednisone 1 mg/kg daily 2. Continue folic acid 1 mg daily 3. Continue daily monitoring of CBC, Reticulocyte, LDH, Bilirubin daily 4. Follow up Lyme, anaplasma, babesiosis evaluation 5. Outpatient GI evaluation 6. Transfusion goal >7 g/dL or symptomatic Please call [phone] with any questions or concerns. Problem List: 1. Hemolytic anemia 2. GI bleed 3. Symptomatic anemia
[2017-05-09] MEDS ORDERED: FOLIC ACID1 M1 PO ×2 (10:53→14:39)
[2017-05-09] MEDS ORDERED: PREDNISONE5 M1 PO ×2 (13:23→14:39)
[2017-05-09] MEDS ORDERED: PREDNISONE20 M1 PO ×2 (13:23→14:39)
[2017-05-09 14:00] LABS: ABSOLUTE BASOPHIL COUNT 0 /CUMM (0.0-0.2); ABSOLUTE EOSINOPHIL COUNT 0.1 /CUMM (0.0-0.7); ABSOLUTE GRANULOCYTE CT 8.5 /CUMM (1.4-6.5); ABSOLUTE LYMPH COUNT 0.4 /CUMM (1.2-3.4); ABSOLUTE MONOCYTE COUNT 0.1 /CUMM (0.10-0.60); BASOPHIL % 0 % (0.0-2.0); EOSINOPHIL % 0.6 % (0-5); GRANULOCYTE % 93.1 % (42.2-75.2); HEMATOCRIT 22.5 % (42-52); MEAN CORPUSCULAR HGB CONC 32.4 G/DL (33.0-37.0); MEAN CORPUSCULAR VOLUME 101.8 FL (80.0-94.0); MEAN PLATELET VOLUME 7.1 FL (7.4-10.4); PLATELET COUNT 292 /CUMM (130-400); RBC DISTRIBUTION WIDTH 18.9 % (11.5-14.5); RED BLOOD CELL CT 2.22 /CUMM (4.70-6.10); WHITE BLOOD CELL COUNT 9.1 /CUMM (4.8-10.8)
--- NOTE | 2017-05-09 15:22 | PN- Infect Dx ---
Subjective Subjective: Afebrile on steroids. He feels much improved, with increased energy and strength, though does report a mild headache. Objective Last 24 Hrs of Vital Signs/I&O Vital Signs Date Time Temp Pulse Resp B/P B/P Pulse O2 O2 Flow FiO2 Mean Ox Delivery Rate 05/09 0625 98.6 95 18 148/80 99 Room Air 05/08 2234 98.4 92 18 128/60 98 Room Air Intake & Output 05/09 1600 05/09 0800 05/09 0000 Intake Total 1000 120 60 Output Total Balance 1000 120 60 Intake, IV 10 Intake, Oral 1000 120 50 Number 1 Bowel Movements Physical Exam Other Physical Findings: He appears comfortable in no acute distress Examination is unchanged Results Last 24 Hours of Lab Results: Laboratory Tests 05/09 05/09 1341 0515 Chemistry Sodium (137 - 145 mmol/L) 140 Potassium (3.5 - 5.1 mmol/L) 4.1 Chloride (98 - 107 mmol/L) 102 Carbon Dioxide (22 - 30 mmol/L) 27 Anion Gap (5 - 16) 11 BUN (9 - 20 mg/dL) 18 Creatinine (0.7 - 1.2 mg/dL) 0.8 Estimated GFR (>60 ml/min) > 60 BUN/Creatinine Ratio (7 - 25 %) 22.5 Total Bilirubin (0.2 - 1.3 mg/dL) 2.6 H Direct Bilirubin (< 0.4 mg/dL) 0.3 Lactate Dehydrogenase (313 - 618 U/L) 1052 H Hematology CBC w Diff MAN DIFF ORDERED MAN DIFF ORDERED WBC (4.8 - 10.8 /CUMM) 9.1 7.5 RBC (4.70 - 6.10 /CUMM) 2.22 L 2.19 L Hgb (14.0 - 18.0 G/DL) 7.3 *L 7.2 *L Hct (42 - 52 %) 22.5 L 22.2 L MCV (80.0 - 94.0 FL) 101.8 H 101.2 H MCH (27.0 - 31.0 PG) 33.0 H 33.0 H RDW (11.5 - 14.5 %) 18.9 H 18.1 H Plt Count (130 - 400 /CUMM) 292 299 MPV (7.4 - 10.4 FL) 7.1 L 7.4 Gran % (42.2 - 75.2 %) 93.1 H 84.2 H Lymphocytes % (20.5 - 51.1 %) 4.8 L 10.7 L Monocytes % (1.7 - 9.3 %) 1.5 L 4.2 Eosinophils % (0 - 5 %) 0.6 0.8 Basophils % (0.0 - 2.0 %) 0 L 0.1 Absolute Granulocytes (1.4 - 6.5 /CUMM) 8.5 H 6.3 Segmented Neutrophils (42.2 - 75.2 %) Pending 78 H Band Neutrophils (0.0 - 5.0 %) 3 Absolute Lymphocytes (1.2 - 3.4 /CUMM) 0.4 L 0.8 L Lymphocytes (20.5 - 51.1 %) 15 L Monocytes (1.7 - 9.3 %) 3 Absolute Monocytes (0.10 - 0.60 /CUMM) 0.1 L 0.3 Eosinophils (0 - 5.0 %) 1 Absolute Eosinophils (0.0 - 0.7 /CUMM) 0.1 0.1 Absolute Basophils (0.0 - 0.2 /CUMM) 0 0 Platelet Estimate (ADEQUATE) ADEQUATE Polychromasia 2+ 2+ Hypochromic-Microcytic 2+ Poikilocytosis 1+ 2+ Anisocytosis 2+ 1+ Microcytic Cells 2+ Macrocytic Cells 1+ Stomatocytes RARE PUBS MCHC (33.0 - 37.0 G/DL) 32.4 L 32.5 L Retic Count (0.5 - 2.0 %) 22.07 H Other Body Source Fld Total RBCs Counted (%) 100 06/07 1600 Hematology CBC w Diff NO MAN DIFF REQ WBC (4.8 - 10.8 /CUMM) 8.1 RBC (4.70 - 6.10 /CUMM) 2.28 L Hgb (14.0 - 18.0 G/DL) 7.6 L Hct (42 - 52 %) 23.0 L MCV (80.0 - 94.0 FL) 100.6 H MCH (27.0 - 31.0 PG) 33.3 H RDW (11.5 - 14.5 %) 17.2 H Plt Count (130 - 400 /CUMM) 309 MPV (7.4 - 10.4 FL) 7.7 Gran % (42.2 - 75.2 %) 91.9 H Lymphocytes % (20.5 - 51.1 %) 6.8 L Monocytes % (1.7 - 9.3 %) 1.0 L Eosinophils % (0 - 5 %) 0.1 Basophils % (0.0 - 2.0 %) 0.2 Absolute Granulocytes (1.4 - 6.5 /CUMM) 7.5 H Absolute Lymphocytes (1.2 - 3.4 /CUMM) 0.6 L Absolute Monocytes (0.10 - 0.60 /CUMM) 0.1 L Absolute Eosinophils (0.0 - 0.7 /CUMM) 0 Absolute Basophils (0.0 - 0.2 /CUMM) 0 PUBS MCHC (33.0 - 37.0 G/DL) 33.1 Serum PCR for Babesia negative Last 24 Hours of Vinh Results: No cultures Assessment/Plan Impression: Continues to improve, with increased energy and strength, on steroids status post several blood transfusions for a 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 His temperatures and white blood cell count remain normal (on steroids). An infectious etiology seems unlikely, with PCR for Babesia negative. Suggestion: 1. Follow-up Lyme Western blot 2. Further management of his anemia per Hematology 3. Continue to follow off antibiotics
== END 2017-05-09 15:00 | DRG 809 ==
LOC: ERH 15:38 → ERHI 17:50 → 2NA 17:50 → ENRESERV 20:11 → ENTRNSPT 20:38 → 2NA 20:50 → CMPTRNSPT 21:28 → ENPENDDIS 05-09 14:28 → 2NA 05-09 15:00
PROVIDERS: Emergency Medicine; Internal Medicine Infectious Disease; Student in an Organized Health Care Education/Training Program; ADMIT Student in an Organized Health Care Education/Training Program
PROC: 30233N1 Transfusion of Nonautologous Red Blood Cells into Peripheral Vein, Percutaneous Approach (ICD-10-PCS; principal; 2017-05-07)
DX: D59.1 Other autoimmune hemolytic anemias (principal); R17 Unspecified jaundice; K92.1 Melena; M48.00 Spinal stenosis, site unspecified; F17.200 Nicotine dependence, unspecified, uncomplicated
CPT/HCPCS: 2NAP; 86317; 86618; 87798; 36415; 74177; 81003; 82436; 83010; 86860; 86920; 87389; 93005; 93010; J3490; P9016

== ENCOUNTER 2017-05-13 14:10 | Inpatient (IN) | payer OTHER ==
[~2017-05-13] VITALS: Ht 195.6 cm; Wt 127.0 kg
[~2017-05-13 14:10] MED LIST: ALEVE220 M2 PO; FOLIC ACID1 M1 PO; IBUPROFEN600 M1 PO; PREDNISONE20 M1 PO; PREDNISONE5 M1 PO
--- NOTE | 2017-05-13 14:21 | NUR ---
PT SENT TO ED BY DR. GOVEA FOR BLOOD TRANSFUSION AND HIGHER DOSES OF STEROIDS AND POTENTIALLY IVIG INFUSION. PT IS ANEMIC H/H 05/19.7 EARLIER TODAY. PT HAS HISTORY OF HEMOLYTIC ANEMIA AND RECENTLY ADMITTED UPSTAIRS. PT APPEARS PALE/YELLOW. HEART PALPITATIONS A FEW DAYS AGO BUT DENIES TODAY. +DYSPNEA ON EXERTION. NO ACUTE DISTRESS NOTED IN TRIAGE.
--- NOTE | 2017-05-13 14:45 | NUR ---
RECIEVED TO ROOM 21. CHANGED INTO HOSP GOWN. IV STARTED. LABS DRAWN
[2017-05-13 14:57] LABS: ABSOLUTE BASOPHIL COUNT 0 /CUMM (0.0-0.2); ABSOLUTE EOSINOPHIL COUNT 0 /CUMM (0.0-0.7); MEAN PLATELET VOLUME 7.6 FL (7.4-10.4); RBC DISTRIBUTION WIDTH 19.8 % (11.5-14.5); WHITE BLOOD CELL COUNT 8.8 /CUMM (4.8-10.8)
[2017-05-13 14:58] LABS: ABSOLUTE GRANULOCYTE CT 8.4 /CUMM (1.4-6.5); ABSOLUTE LYMPH COUNT 0.3 /CUMM (1.2-3.4); ABSOLUTE MONOCYTE COUNT 0.1 /CUMM (0.10-0.60); BASOPHIL % 0 % (0.0-2.0); EOSINOPHIL % 0.2 % (0-5); GRANULOCYTE % 95.2 % (42.2-75.2); MEAN CORPUSCULAR HGB 35.4 PG (27.0-31.0); MEAN CORPUSCULAR HGB CONC 33.5 G/DL (33.0-37.0); MEAN CORPUSCULAR VOLUME 105.7 FL (80.0-94.0); PLATELET COUNT 216 /CUMM (130-400)
[2017-05-13 15:01] LABS: HEMATOCRIT 17.4 % (42-52)
[2017-05-13 15:02] LABS: RED BLOOD CELL CT 1.64 /CUMM (4.70-6.10)
--- NOTE | 2017-05-13 15:02 | NUR ---
CRITICAL TEST RESULTS [id number] KAMLA MCKEON 47 Jean[place] TESTS AND RESULTS: HGB 5.8/HCT 17.4 Results received and read back by: GILMA MATHIAS Results received date and time: 05/13/17 1502 The following provider was notified of the results, and read the results back: DR LEAVITT Notified date and time: 05/13/17 at 1500
--- NOTE | 2017-05-13 15:15 | ED GENERAL ADULT ---
See Addendum History of Present Illness General Chief Complaint: General Adult Stated Complaint: SENT BY PCP; ANEMIA Source: patient, family Exam Limitations: no limitations Vital Signs & Intake/Output Vital Signs & Intake/Output Vital Signs Date Time Temp Pulse Resp B/P B/P Pulse O2 O2 Flow FiO2 Mean Ox Delivery Rate 05/13 2006 99.2 102 18 122/60 98 Room Air 05/13 1722 100 18 130/58 100 05/13 1446 Room Air 05/13 1418 98.1 105 15 137/79 95 Room Air Room Air Allergies Coded Allergies: No Known Allergies (05/13/17) Reconcile Medications Folic Acid 1 MG TABLET 1 TAB PO DAILY supplement Prednisone 20 MG TABLET 6 TAB PO DAILY hemolytic anemia 6 tablets to be taken daily. total daily dose is 125 mg daily Prednisone 5 MG TABLET 1 TAB PO DAILY hemolytic anemia take this daily in adition to the 120 mg for a total of 125 mg daily. Triage Note: PT SENT TO ED BY DR. GOVEA FOR BLOOD TRANSFUSION AND HIGHER DOSES OF STEROIDS AND POTENTIALLY IVIG INFUSION. PT IS ANEMIC H/H 05/19.7 EARLIER TODAY. PT HAS HISTORY OF HEMOLYTIC ANEMIA AND RECENTLY ADMITTED UPSTAIRS. PT APPEARS PALE/YELLOW. HEART PALPITATIONS A FEW DAYS AGO BUT DENIES TODAY. +DYSPNEA ON EXERTION. NO ACUTE DISTRESS NOTED IN TRIAGE. Triage Nurses Notes Reviewed? yes HPI: 47 yo M PMH hemolytic anemia presenting with jaundice, anemia. 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 Patient went to his primary care physician's office today for follow-up, lab work showed hemoglobin of 6.1, sent to ED for evaluation, transfusion, admission. Patient notes worsening jaundice for the past couple of days. Patient notes some palpitations 2 nights ago with racing heartbeat, denies chest pain, shortness of breath, abdominal pain, hematochezia, melena, hematuria, dizziness, headache, or focal neurologic symptoms. (RAJWINDER KUMAR,MARY) Past History Travel History Traveled to [place] past 21 day No Medical History Any Pertinent Medical History? see below for history Neurological: NONE EENT: NONE Cardiovascular: NONE Respiratory: NONE Gastrointestinal: RECTAL BLEED/HEMORRHOIDS Hepatic: NONE Renal: NONE Musculoskeletal: spinal stenosis Psychiatric: NONE Endocrine: NONE Blood Disorders: NONE Cancer(s): NONE CARDIOLOGY RN/Reproductive: NONE History of MRSA: No History of VRE: No History of CDIFF: No Surgical History Surgical History: L KNEE SURGERY BILAT HAND SURGERIES Psychosocial History Who do you live with Spouse Services at Home None What is your primary language Setswana Tobacco Use: Current Not Daily Daily Tobacco Use Amount/Type: Cigar or Pipe use daily ETOH Use: denies use Illicit Drug Use: denies illicit drug use Family History Family History, If Any: Relation not specified for: *No pertinent family history Hx Contributory? Yes (MARY PURDY MD) Review of Systems Review of Systems Constitutional: Reports: no symptoms. EENTM: Reports: no symptoms. Respiratory: Reports: no symptoms. Cardiovascular: Reports: palpitations. Denies: chest pain, syncope. GI: Reports: no symptoms. Denies: bloody stool. Genitourinary: Reports: no symptoms. Musculoskeletal: Reports: no symptoms. Skin: Reports: no symptoms. Neurological/Psychological: Reports: no symptoms. Hematologic/Endocrine: Reports: no symptoms. Denies: bruising, bleeding. Immunologic/Allergic: Reports: no symptoms. All Other Systems: Reviewed and Negative (MARY PURDY MD) Physical Exam Physical Exam General Appearance: well developed/nourished, no apparent distress, alert, awake Head: atraumatic, normal appearance Neck: normal inspection, full range of motion Respiratory: normal breath sounds, no respiratory distress, lungs clear Cardiovascular: regular rate/rhythm, normal peripheral pulses Gastrointestinal: normal bowel sounds, soft, non-tender Extremities: normal inspection Neurologic/Psych: no motor/sensory deficits, awake, alert Skin: jaundice Core Measures ACS in differential dx? Yes CVA/TIA Diagnosis: No Severe Sepsis Present: No Septic Shock Present: No (MARY PURDY MD) Progress Differential Diagnoses I considered the following diagnoses in my evaluation of the patient: [ Autoimmune lytic anemia, hemorrhagic anemia, anemia of chronic disease, metabolic deficiency anemia, leukemia/lymphoma and bone marrow failure] Plan of Care: Orders Procedure Date/time Status RETICULOCYTE COUNT 05/14 600 Active LDH (LACT ACID DEHYDROGENASE) 05/14 600 Active CBC WITHOUT DIFFERENTIAL 05/14 600 Active BILIRUBIN TOTAL 05/14 600 Active BASIC ELECTROLYTES PLUS BUN&CR 05/14 600 Active Regular Diet 05/13 D Active Add-on Test (ER Only) 05/13 1816 Active LEUKOCYTE POOR (PACKED CELLS) 05/13 1704 Active LEUKOCYTE POOR (PACKED CELLS) 05/13 1609 Active Pathway - chart 05/13 1544 Active House Staff 05/13 1544 Active Patient Data 05/13 1544 Active Code Status 05/13 1544 Active ED Holding Orders 05/13 1542 Active Vital Signs 05/13 1542 Active Code Status 05/13 1542 Complete Patient Data 05/[address] in observation 05/13 1526 Active LEUKOCYTE POOR (PACKED CELLS) 05/13 1513 Active Intake & Output 05/13 1446 Active TROPONIN LEVEL 05/13 1442 Complete RHEUMATOID FACTOR 05/13 1442 Complete ANTINUCLEAR ANTIBODY 05/13 1442 Active COMPREHENSIVE METABOLIC PANEL 05/13 1421 Complete CBC WITHOUT DIFFERENTIAL 05/13 1421 Complete EKG 05/13 1421 Active TYPE & SCREEN (NOT X-MATCH) 05/13 1421 Active Lab Add-on Test 05/13 UNK Active VTE Mechanical Prophylaxis 05/13 UNK Active Current Medications Sig/Katey Start time Last Medication Dose Stop Time Status Admin Folic Acid 1 MG DAILY 05/14 1000 AC (Folic Acid) Prednisone 180 MG DAILY 05/14 1000 AC Acetaminophen 325 MG Q6P PRN 05/13 1715 AC (Tylenol) Morphine Sulfate 1 MG Q4 PRN 05/13 1545 AC (Morphine) Laboratory Tests 05/13/17 1442: Rheum Factor Semi-Quant 8.6 05/13/17 1442: Anion Gap 9, Estimated GFR > 60, BUN/Creatinine Ratio 31.4 H, Glucose 120 H, Calcium 8.5, Total Bilirubin 3.1 H, AST 21, ALT 39, Alkaline Phosphatase 61, Troponin I < 0.01, Total Protein 6.3, Albumin 3.6, Globulin 2.7, Albumin/ Globulin Ratio 1.3, CBC w Diff MAN DIFF ORDERED, RBC 1.64 L, MCV 105.7 H, MCH 35.4 H, RDW 19.8 H, MPV 7.6, Gran % 95.2 H, Lymphocytes % 3.7 L, Monocytes % 0.9 L, Eosinophils % 0.2, Basophils % 0 L, Absolute Granulocytes 8.4 H, Segmented Neutrophils 91 H, Band Neutrophils 4, Absolute Lymphocytes 0.3 L, Lymphocytes 2 L, Monocytes 1 L, Absolute Monocytes 0.1 L, Absolute Eosinophils 0, Absolute Basophils 0, Metamyelocytes 2 H, Platelet Estimate ADEQUATE, Polychromasia 2+, Hypochromic-Microcytic 3+, Poikilocytosis 2+, Basophilic Stippling , Anisocytosis 1+, Macrocytic Cells 1+, PUBS MCHC 33.5, AAKASH Titer Pending, Anti-Nuclear Antibody Pending Physician MDM: 47 yo M PMH hemolytic anemia presenting with jaundice, anemia. VSS, normal HR and BP, remainder of exam as above. 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 CBC with hemoglobin of 5.8, hematocrit of 17. Type and screen sent 1 unit of packed red blood cells ordered. Admit for transfusion and further evaluation of ongoing hemolytic anemia. (MARY PURDY MD) Initial ED EKG: normal axis, Non-ischemic (MARY PURDY MD) Departure Departure Disposition: STILL A PATIENT Condition: Stable Clinical Impression Primary Impression: Anemia Qualifiers: Anemia type: acquired or hereditary hemolytic anemia Hemolytic anemia type: acquired, autoimmune, other Qualified Code: D59.1 - Other autoimmune hemolytic anemias Referrals: JOHN MAGALLANES MD (PCP/Family) Departure Forms: Customer Survey General Discharge Information Admission Note Spoke With: MEGHNA KUMAR,ETRESA Melton Documentation of Exam: Documentation of any treatments & extenuating circumstances including Concerns Regarding Discharge (functional status, medication knowledge or non-compliance, living conditions, etc.) that warrant an admission rather than observation: [ Patient presents with jaundice and ongoing hemolytic anemia with hemoglobin of 5.8, patient requires admission for further hematologic testing and transfusion of packed red blood cells, the patient's hemoglobin is well below the standard threshold for treating anemia, if discharged without transfusion the patient has a high risk of progressive anemia with resulting cardiac and neurologic ischemia , morbidity, and probable mortality.] (MARY PURDY MD) Resident Co-Sign Statement Statement: ED Attending supervision documentation- [] I saw and evaluated the patient. I have also reviewed all the pertinent lab results and diagnostic results. I agree with the findings and the plan of care as documented in the Resident's documentation. [X] I have reviewed the ED Record and agree with the Resident's documentation. [] Additions or exceptions (if any) to the Resident's note and plan are summarized below: [] (ISHMAEL KUMAR,ROBERTA) Critical Care Note Critical Care Note Critical Care Time: non-applicable (RAJWINDER KUMAR,MARY)
--- NOTE | 2017-05-13 15:20 | NUR ---
ADDITIONAL PINK TOP TUBES DRAWN AND SENT TO LAB PER REQUEST OF BLOOD BANK DUE TO PT HAVING LOTS OF ANTIBODIES
--- NOTE | 2017-05-13 15:51 | NUR ---
HOUSE STAFF IN TO SEE PT
--- NOTE | 2017-05-13 16:15 | History & Physical ---
NICOLE FARNSWORTH 05/13/17 1556: General Information and HPI MD Statement: I have seen and personally examined KAMLA MCKEON and documented this H&P. The patient is a 47 year old M who presented with a patient stated chief complaint of [low hemoglobin]. Source of Information: patient, old records Exam Limitations: no limitations History of Present Illness: Patient is a 47-year-old male with significant past medical history autoimmune hemolytic anemia recently diagnosed(2016), history of hemorrhoidal bleeding, spinal stenosis on NSAIDs was sent in to the ED by Dr. Archer for blood transfusion for symptomatic anemia. Patient was recently discharged on 05/06/2017 after being treated for symptomatic anemia with palpitation, headache, dyspnea and fatigue. He was evaluated by hematology, ID and GI and was diagnosed to have possible autoimmune hemolytic anemia. At admission he had splenomegaly, with a hematocrit of 17.5, elevated LDH and elevated indirect bilirubin. DVT was positive for IgG and C3. Cold agglutinin and warm autoimmune antibody were nonspecific. Lymes disease, babesiosis, anaplasma were rules out. Serologies were non reactive for HIV, hepatitis C, hepatitis B and hepatitis A. line side was positive however did not explain the etiology of hemolytic anemia. He received 2 units of PRBCs and LDH and bilirubin were monitored daily. He was started on prednisone 1 mg per KG per day and folic acid 1 mg daily. GI evaluated him for possible hemorrhoids however colonoscopy was deferred to outpatient follow-up. Since discharge from the hospital patient has been having his H&H checked every day and his levels has been constantly decreasing. He has no active bleeding at this time. He was seen at Dr. Archer's office today morning and was found to have an H&H of 5. 8/17.4 and was therefore asked to come to the ED for blood transfusion. Patient continues to have dyspnea, occasional palpitations and tachycardia. Denies any felicita chest pain, nausea, vomiting, abdominal pain, urinary or bowel symptoms. Allergies/Medications Allergies: Coded Allergies: No Known Allergies (05/13/17) Home Med list Folic Acid 1 MG TABLET 1 TAB PO DAILY supplement Prednisone 20 MG TABLET 6 TAB PO DAILY hemolytic anemia 6 tablets to be taken daily. total daily dose is 125 mg daily Prednisone 5 MG TABLET 1 TAB PO DAILY hemolytic anemia take this daily in adition to the 120 mg for a total of 125 mg daily. 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 Ambulation: independent IADLs Independent: shopping, housework, finances, food prep, telephone, transportation , medication admin. Review of Systems Review of Systems Constitutional: Reports: malaise, weakness. EENTM: Reports: no symptoms. Cardiovascular: Reports: chest pain. Respiratory: Reports: short of breath. Genitourinary: Reports: no symptoms. Musculoskeletal: Reports: no symptoms. Skin: Reports: no symptoms. Neurological/Psychological: Reports: no symptoms. Exam & Diagnostic Data Last 24 Hrs of Vital Signs/I&O Vital Signs Date Time Temp Pulse Resp B/P B/P Pulse O2 O2 Flow FiO2 Mean Ox Delivery Rate 05/13 1446 Room Air 05/13 1418 98.1 105 15 137/79 95 Room Air Room Air Intake & Output 05/13 1600 / 0800 06/ 0000 Intake Total Output Total Balance Patient 127.006 kg Weight Weight Reported by Patient Measurement Method Physical Exam General Appearance Alert, Oriented X3, Cooperative, Mild Distress Skin pallor Skin Temp/Moisture Exam: Warm/Dry Sepsis Skin Exam (color): Normal for Ethnicity HEENT Atraumatic, PERRLA, EOMI Neck No JVD Lymphatic Cervical nl Cardiovascular Regular Rate, Normal S1, Normal S2, No Murmurs Lungs Clear to Auscultation, Normal Air Movement Abdomen Normal Bowel Sounds, Soft Neurological Normal Speech, Normal Tone Extremities No Clubbing, No Cyanosis, No Edema Vascular Normal Pulses Last 24 Hrs of Labs/Vinh: Laboratory Tests 05/13/17 1442: Anion Gap 9, Estimated GFR > 60, BUN/Creatinine Ratio 31.4 H, Glucose 120 H, Calcium 8.5, Total Bilirubin 3.1 H, AST 21, ALT 39, Alkaline Phosphatase 61, Total Protein 6.3, Albumin 3.6, Globulin 2.7, Albumin/Globulin Ratio 1.3, CBC w Diff MAN DIFF ORDERED, RBC 1.64 L, MCV 105.7 H, MCH 35.4 H, RDW 19.8 H, MPV 7.6, Gran % 95.2 H, Lymphocytes % 3.7 L, Monocytes % 0.9 L, Eosinophils % 0.2 , Basophils % 0 L, Absolute Granulocytes 8.4 H, Segmented Neutrophils 91 H, Band Neutrophils 4, Absolute Lymphocytes 0.3 L, Lymphocytes 2 L, Monocytes 1 L, Absolute Monocytes 0.1 L, Absolute Eosinophils 0, Absolute Basophils 0, Metamyelocytes 2 H, Platelet Estimate ADEQUATE, Polychromasia 2+, Hypochromic- Microcytic 3+, Poikilocytosis 2+, Basophilic Stippling , Anisocytosis 1+, Macrocytic Cells 1+, PUBS MCHC 33.5 Assessment/Plan Assessment: Patient is a 47-year-old male with significant past medical history autoimmune hemolytic anemia recently diagnosed(2016), history of hemorrhoidal bleeding, spinal stenosis on NSAIDs was sent in to the ED by Dr. Archer for blood transfusion for symptomatic anemia. Since discharge from the hospital patient has been having his H&H checked every day and his levels has been constantly decreasing. He has no active bleeding at this time. He was seen at Dr. Weaver office today morning and was found to have an H&H of 5. 8/17.4 and was therefore asked to come to the ED for blood transfusion. Patient continues to have dyspnea, occasional palpitations and tachycardia. Denies any felicita chest pain, nausea, vomiting, abdominal pain, urinary or bowel symptoms. Assessment: * Autoimmune hemolytic anemia of unclear etiology * History hematochezia * History of spinal stenosis Plan: * Patient is being brought in as an [facility] observation status * Transfuse 2 unit of packed red blood cells * CBC check in am * Continue prednisone at 180 mg daily PO (per hematology) * C/W home dose of folic acid * Hematology consult with Dr. Archer * Patient needs outpatient colonoscopy for hemorrhoids * As needed pain meds, try to avoid NSAIDs * Alps for DVT prophylaxis * Regular diet As Ranked By This Provider Problem List: 1. Hemolytic anemia 2. Symptomatic anemia Core Measures/Miscellaneous Acute Coronary Syndrome ACS Diagnosis: No Cerebrovascular Accident CVA/TIA Diagnosis: No Congestive Heart Failure CHF Diagnosis: No VTE (View Protocol) VTE Risk Factors: Age > 40 [address] [facility] prophylaxis d/t: No contraindications No VTE Pharm Prophylaxis d/t: Blood coag disorder VTE Diagnosis: No VTE Type: NONE VTE Confirmed by (Test): NONE Sepsis (View Protocol) Severe Sepsis Present: No Septic Shock Septic Shock Present: No Miscellaneous Documentation Attending Case Discussed With: ROSARIO PERERA MD Primary Care Physician: JOHN MAGALLANES MD Patient sees these Specialists dr archer Level of Patient Care: General Medicine ROSARIO PERERA MD 05/14/172042: Attending MD Review Statement Attending Statement Attending MD Statement: examined this patient, discuss w/resident/PA/MEDICAL DIRECTOR OF HOSPICE, agreed w/resident/PA/MEDICAL DIRECTOR OF HOSPICE, reviewed EMR data (avail) Attending Assessment/Plan: 47M PMH spinal stenosis, recently discharged after admission for symptomatic anemia and 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 Patient had responded well to Prednisone on prior admission, but on discharge, follow up CBC continued to have dropping Hgb, 5.8 now. Patient feels weak, fatigued, headache, and dyspneic with exertion, though he feels better than when he was first admitted. 1. C3 autoimmune hemolytic anemia 2. Symptomatic anemia Plan - Observation in general medicine - Transfuse 2 units pRBC - Hematology consult - Recheck retic count, LDH - Recheck CBC in the morning - ALPS for DVT PPx
--- NOTE | 2017-05-13 16:19 | NUR ---
DINNER ORDER PLACED FOR PT
--- NOTE | 2017-05-13 17:05 | NUR ---
PT GIVEN DINNER
--- NOTE | 2017-05-13 17:29 | Cons- Hematology ---
General Information and HPI Consulting Request Date of Consult: 05/13/17 Requested By: ROSARIO PERERA MD Reason for Consult: Hemolytic anemia Source of Information: patient, old records Exam Limitations: no limitations History of Present Illness: Mr. stanley is a 47-year-old male with recently diagnosed autoimmune hemolytic anemia who presented was referred from the clinic to the hospital for symptomatic anemia. He was hospitalized from 05/06 to 05/09 for hemolytic anemia after he was found to have dyspnea, tachycardia, jaundice, and hemoglobin of 5.8 and hematocrit of 17.5. During the admission, he was noted to have positive IgG and C3 and warm autoimmune antibody. He was started on prednisone 1 mg/kg. He was discharged with prednisone and hemoglobin of 7.3 and hematocrit of 22.5%. His blood work was lower on Saturday with hemoglobin of around 6.8 g/dL. He had some palpitation and felt worse on Saturday. Saturday he felt better. He felt a little worse today but not bad. He has some intermittent palpitation, shortness of breath, and dizziness. He is taking his steroid as directed. He has no nausea or vomiting. He reports no bleeding issues. He has no chest pain. He was noted to have a hemoglobin of 6.0 today. He did not want to go to the hospital today. He would like to go home and come back for transfusion. He eventually was agreeable to come to the hospital. In the ED, he was noted to have a hemoglobin of 5.8 and hematocrin of 17.5%. His bilirubin increased back to 3.1. He was not jaundice on examination. Allergies/Medications Allergies: Coded Allergies: No Known Allergies (05/13/17) Home Med List: Folic Acid 1 MG TABLET 1 TAB PO DAILY supplement Prednisone 20 MG TABLET 6 TAB PO DAILY hemolytic anemia 6 tablets to be taken daily. total daily dose is 125 mg daily Prednisone 5 MG TABLET 1 TAB PO DAILY hemolytic anemia take this daily in adition to the 120 mg for a total of 125 mg daily. Current Medications: Current Medications Sig/Katey Start time Last Medication Dose Route Stop Time Status Admin Acetaminophen 325 MG Q6P PRN 05/13 1715 AC PO Folic Acid 1 MG DAILY 05/14 1000 AC PO Ibuprofen 400 MG Q6 PRN 05/13 1545 DC PO Morphine Sulfate 1 MG Q4 PRN 05/13 1545 AC IV Multivitamins 1 TAB DAILY 05/14 1000 DC PO Oxycodone/ 2 TAB Q6 PRN 05/13 1545 DC Acetaminophen PO Prednisone 180 MG DAILY 05/14 1000 AC PO Review of Systems Review of Systems Constitutional: Reports: malaise. Denies: chills, diaphoresis, fever. Cardiovascular: Reports: palpitations. Denies: chest pain. Respiratory: Reports: short of breath. Denies: hemoptysis. GI: Denies: abdominal pain, bloody stool. Genitourinary: Denies: hematuria. Musculoskeletal: Reports: joint pain. Skin: Denies: jaundice, rash. Neurological/Psychological: Reports: headache (not as bad). Denies: anxiety, confusion. Hematologic/Endocrine: Denies: bruising, bleeding. Immunologic/Allergic: Denies: lymphadenopathy. 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 Ambulation: independent IADLs Independent: shopping, housework, finances, food prep, telephone, transportation , medication admin. Exam & Diagnostic Data Vital Signs and I&O Vital Signs Date Time Temp Pulse Resp B/P B/P Pulse O2 O2 Flow FiO2 Mean Ox Delivery Rate 05/13 1446 Room Air 05/13 1418 98.1 105 15 137/79 95 Room Air Room Air Intake & Output 05/13 1600 05/13 0800 05/13 0000 Intake Total Output Total Balance Patient 127.006 kg Weight Weight Reported by Patient Measurement Method Physical Exam General Appearance: no apparent distress, comfortable Head: atraumatic Eyes: Bilateral: other (mild icterus). Ears, Nose, Throat: normal pharynx Respiratory: normal breath sounds, chest non-tender, no respiratory distress Cardiovascular: tachycardia Gastrointestinal: normal bowel sounds, soft, non-tender, no organomegaly Extremities: no edema Neurologic/Psych: awake, alert, oriented x 3 Skin: pallor Lymphatic: no anterior cervical linda Last 48 Hours of Lab Results: Laboratory Tests 05/13 1442 Chemistry Sodium (137 - 145 mmol/L) 133 L Potassium (3.5 - 5.1 mmol/L) 4.3 Chloride (98 - 107 mmol/L) 98 Carbon Dioxide (22 - 30 mmol/L) 26 Anion Gap (5 - 16) 9 BUN (9 - 20 mg/dL) 22 H Creatinine (0.7 - 1.2 mg/dL) 0.7 Estimated GFR (>60 ml/min) > 60 BUN/Creatinine Ratio (7 - 25 %) 31.4 H Glucose (65 - 99 mg/dL) 120 H Calcium (8.4 - 10.2 mg/dL) 8.5 Total Bilirubin (0.2 - 1.3 mg/dL) 3.1 H AST (17 - 59 U/L) 21 ALT (21 - 72 U/L) 39 Alkaline Phosphatase (< 127 U/L) 61 Troponin I (<0.11 ng/ml) Pending Total Protein (6.3 - 8.2 g/dL) 6.3 Albumin (3.5 - 5.0 g/dL) 3.6 Globulin (1.9 - 4.2 gm/dL) 2.7 Albumin/Globulin Ratio (1.1 - 2.2 %) 1.3 Hematology CBC w Diff MAN DIFF ORDERED WBC (4.8 - 10.8 /CUMM) 8.8 RBC (4.70 - 6.10 /CUMM) 1.64 L Hgb (14.0 - 18.0 G/DL) 5.8 *L Hct (42 - 52 %) 17.4 *L MCV (80.0 - 94.0 FL) 105.7 H MCH (27.0 - 31.0 PG) 35.4 H RDW (11.5 - 14.5 %) 19.8 H Plt Count (130 - 400 /CUMM) 216 MPV (7.4 - 10.4 FL) 7.6 Gran % (42.2 - 75.2 %) 95.2 H Lymphocytes % (20.5 - 51.1 %) 3.7 L Monocytes % (1.7 - 9.3 %) 0.9 L Eosinophils % (0 - 5 %) 0.2 Basophils % (0.0 - 2.0 %) 0 L Absolute Granulocytes (1.4 - 6.5 /CUMM) 8.4 H Segmented Neutrophils (42.2 - 75.2 %) 91 H Band Neutrophils (0.0 - 5.0 %) 4 Absolute Lymphocytes (1.2 - 3.4 /CUMM) 0.3 L Lymphocytes (20.5 - 51.1 %) 2 L Monocytes (1.7 - 9.3 %) 1 L Absolute Monocytes (0.10 - 0.60 /CUMM) 0.1 L Absolute Eosinophils (0.0 - 0.7 /CUMM) 0 Absolute Basophils (0.0 - 0.2 /CUMM) 0 Metamyelocytes (0.0 - 1.0 %) 2 H Platelet Estimate (ADEQUATE) ADEQUATE Polychromasia 2+ Hypochromic-Microcytic 3+ Poikilocytosis 2+ Basophilic Stippling Anisocytosis 1+ Macrocytic Cells 1+ PUBS MCHC (33.0 - 37.0 G/DL) 33.5 Assessment/Plan Assessment: Mr. Stanley is a 47-year-old male with recently diagnosed autoimmune hemolytic anemia on prednisone 125 mg PO daily with folic acid who presented to the ED from clinic with symptomatic anemia. His hemoglobin was 5.8 and hematocrit was 17.5%. Two days prior it was 6.8 g/dL for hemoglobin. His bilirubin has increased again. It is concerning that his hemolysis is worsening again. Given the significant decrease in hemoglobin and symptoms, he should get 2 units pRBC infused slowly to avoid exacerbating hemolysis. He will need an increase in prednisone dosing to 1.5 mg/kg. If he does not improve, IVIG 1 gm/ kg daily for 5 days may be needed. He should have hemolysis parameter monitored. This includes LDH, reticulocytes count, bilirubin, and CBC. FAYE can be checked again. It may be reasonable to check AAKASH and RF for underlying rheumatologic issues. Recommendations: 1. Monitor CBC with LDH, bilirubin, reticulocytes count 2. Check AAKASH and RF 3. Transfuse with 2 unit pRBC slowly to avoid hemolytic exacerbation 4. Increase prednisone to 1.5 mg/kg (180 mg PO daily) 5. Continue folic acid daily 6. Consider IVIg if continues to have drop in hemoglobin 7. He will need slow taper of prednisone 8. GI evaluation as outpatient Problem List: 1. Hemolytic anemia 2. Symptomatic anemia Other Findings/Comments: Please call [phone] with any questions or concerns. Consult Acknowledgment - Thank you for your consult request.
--- NOTE | 2017-05-13 20:05 | NUR ---
PT RESTING QUIETLY. IN NO OVERT DISTRESS. DENIES DIZZINESS. WALKING IN HALLS WITHOUT DIFFICULTY.
--- NOTE | 2017-05-13 21:20 | NUR ---
PT AMBULATED BACK AND FORTH TO BATHROOM. ALERT AND ORIENTED. IN NON DISTRESS
--- NOTE | 2017-05-13 22:01 | NUR ---
PT MOVED TO HOSPITAL BED. COMPLAINING OF HEADACHE, GENERAL MALAISE AND INDIGESTION/VAGUE NAUSEA. REFUSING OFFER OF NAUSEA MEDS. GIVEN TYLENOL
--- NOTE | 2017-05-13 22:40 | NUR ---
PT GOING TO ROOM 208-1
--- NOTE | 2017-05-13 23:09 | NUR ---
REPORT CALLED TO [facility] ON 2ND FLOOR
--- NOTE | 2017-05-13 23:15 | Event Note ---
See Addendum Event Note Event Note: Patient's nurse in the ED reported that the blood that had been ordered were delayed and could take until tomorrow morning to arrive as the patient had a lot of antibodies in his blood which made it difficult to find a match. She said that [facility] had been informed and they would deliver the blood as soon as a successful cross-match was established.
[2017-05-13 23:30] VITALS: BP 120/60
--- NOTE | 2017-05-14 06:52 | PN- Housestaff ---
Subjective Follow-up For: Symptomatic Anemia Subjective: Mr. Stanley was seen and examined this morning. He is resting comfortably in bed. States he still feels lethargic. Endorses a mild headache. Was interrupted multiple times overnight and unable to get much rest. He is alert although seems laconic based on the lack of action over the last 12 hours. Denies any fever, chills, nausea, vomiting. Was discussed with him extensively that there has been blood ordered and also some risks to present he is comfortable proceeding with blood. Denies any heart palpitations or weakness or shortness of breath. Review of Systems Constitutional: Reports: see HPI. Objective Last 24 Hrs of Vital Signs/I&O Vital Signs Date Time Temp Pulse Resp B/P B/P Pulse O2 O2 Flow FiO2 Mean Ox Delivery Rate 05/14 0205 100.0 05/13 2330 100.0 96 20 120/60 96 Room Air 05/13 220 99.5 97 18 118/57 97 Room Air 05/13 2201 99.5 05/13 2006 99.2 102 18 122/60 98 Room Air 05/13 1722 100 18 130/58 100 05/13 1446 Room Air 05/13 1418 98.1 105 15 137/79 95 Room Air Room Air Intake & Output 05/14 0800 05/14 0000 05/13 1600 Intake Total Output Total Balance Patient 127.006 kg Weight Weight Reported by Patient Measurement Method Physical Exam General Appearance: Alert, Oriented X3, Cooperative Cardiovascular: Regular Rate, Normal S1, Normal S2 Lungs: Clear to Auscultation Abdomen: Normal Bowel Sounds, Soft, No Tenderness Neurological: Normal Gait, Normal Speech, Strength at 5/5 X4 Ext Extremities: No Clubbing, No Cyanosis, No Edema Vascular: Normal Pulses Current Medications: Current Medications Sig/Katey Start time Last Medication Dose Route Stop Time Status Admin Acetaminophen 0 .STK-MED ONE 05/13 2201 DC PO Acetaminophen 325 MG Q6P PRN 05/13 1715 AC 05/13 PO 2201 Folic Acid 1 MG DAILY 05/14 1000 AC PO Ibuprofen 400 MG Q6 PRN 05/13 1545 DC PO Morphine Sulfate 1 MG Q4 PRN 05/13 1545 AC IV Multivitamins 1 TAB DAILY 05/14 1000 DC PO Oxycodone/ 2 TAB Q6 PRN 05/13 1545 DC Acetaminophen PO Prednisone 180 MG DAILY 05/14 1000 AC PO Last 24 Hrs of Lab/Vinh Results Last 24 Hrs of Labs/Mics: Laboratory Tests 05/14/17 0627: Anion Gap 8, Estimated GFR > 60, BUN/Creatinine Ratio 22.5, Total Bilirubin 3.8 H, Lactate Dehydrogenase 724 H, CBC w Diff MAN DIFF ORDERED, WBC Pending, RBC Pending, Hgb Pending, Hct Pending, MCV Pending, MCH Pending, RDW Pending, Plt Count Pending, MPV Pending, Gran % Pending, Lymphocytes % Pending, Monocytes % Pending, Eosinophils % Pending, Basophils % Pending, Absolute Granulocytes Pending, Segmented Neutrophils Pending, Absolute Lymphocytes Pending, Absolute Monocytes Pending, Absolute Eosinophils Pending, Absolute Basophils Pending, PUBS MCHC Pending, Retic Count Pending 05/13/17 1442: Rheum Factor Semi-Quant 8.6 05/13/17 1442: Anion Gap 9, Estimated GFR > 60, BUN/Creatinine Ratio 31.4 H, Glucose 120 H, Calcium 8.5, Total Bilirubin 3.1 H, AST 21, ALT 39, Alkaline Phosphatase 61, Troponin I < 0.01, Total Protein 6.3, Albumin 3.6, Globulin 2.7, Albumin/ Globulin Ratio 1.3, CBC w Diff MAN DIFF ORDERED, RBC 1.64 L, MCV 105.7 H, MCH 35.4 H, RDW 19.8 H, MPV 7.6, Gran % 95.2 H, Lymphocytes % 3.7 L, Monocytes % 0.9 L, Eosinophils % 0.2, Basophils % 0 L, Absolute Granulocytes 8.4 H, Segmented Neutrophils 91 H, Band Neutrophils 4, Absolute Lymphocytes 0.3 L, Lymphocytes 2 L, Monocytes 1 L, Absolute Monocytes 0.1 L, Absolute Eosinophils 0, Absolute Basophils 0, Metamyelocytes 2 H, Platelet Estimate ADEQUATE, Polychromasia 2+, Hypochromic-Microcytic 3+, Poikilocytosis 2+, Basophilic Stippling , Anisocytosis 1+, Macrocytic Cells 1+, PUBS MCHC 33.5, AAKASH Titer Pending, Anti-Nuclear Antibody Pending Assessment/Plan Assessment: Mr Stanley is 47-year-old male with PMH of spinal stenosis on NSAIDs, was seen at the emergency department on 05/13/2017 after being sent in by [employer] worker and oncologist Dr. Reagan due to anemia and low H&H found at the office of Dr. Reagan. Continue observation next 24 hours to ensure that the patient responds well to PRBC. # Idiopathic Symptomatic anemia, * Continue High Dose steroids 1.5 mg/kg. 180 mg daily. * Folic Acid, 1 mg daily. * 2 units of PRBCs was transfused 05/14/2017 * H&H this a.m. 5.0 and 15.3 respectively. Will repeat CBC this evening at 6.00 pm to ensure adequate response. * In am: LDH, Billirubin, Reticulocyte count. #History of Blood Loss * Can have GI work up as an outpatient. * CBC daily. If acute signs of bleeding, inform GI Stat. # Hx of spinal stenosis * Keep off NSAID in the setting of ABLA. Patient does have a history of long standing NSAID use, due to spinal stenosis. * Manage pain with morphine and Tylenol. Diet: Regular DVT ppx: ALPS Problem List: 1. Anemia 2. Hemolytic anemia 3. Symptomatic anemia Pain Ratin Pain Location: No Pain Pain Goal: Remain pain free Pain Plan: Tylenol PRN Tomorrow's Labs & Rationales: CBC: monitor response to blood transfusion.
--- NOTE | 2017-05-14 07:40 | Event Note ---
Event Note Event Note: S: Blood incompatability/Acute reaction to blood. B: Patient was supposed to receive 2 Units PRBC ovenight, but has not been able to due to concern of an adverse reaction. A/R: Spoke with Dr Reagan and Lilia at the blood bank. This is a similar situation to the patients last admission. One unit PRBC ordered. We will monitor the pateint closely. Resident made aware. 1030 am: Patient asymptomatic. resting in bed comfortably. 11.00 am: Second unit of PRBC ordered.
[2017-05-14 07:51] VITALS: BP 114/64
--- NOTE | 2017-05-14 07:51 | NUR ---
PER DR ALEX FRITZ TRANSFUSE WITH 1 UNIT PRBC AT THIS TIME; NO NEED FOR PREMEDICATION PER DR FRITZ; BP 114/64, HR 100, TEMP 99.1; DR FRITZ AWARE OF TEMP 99.1 AND SAID "IT IS OKAY TO PROCEED WITH TRANSFUSION WITHOUT PREMEDICATION"; BLOOD PRODUCT PICKUP ORDER ENTERED; DISTRIBUTION CALLED TO PICKUP BLOOD; PATIENT RESTING COMFORTABLY IN BED AT THIS TIME; NEEDS WITHIN REACH; SAFETY MAINTAINED;
[2017-05-14 07:54] LABS: ABSOLUTE BASOPHIL COUNT 0 /CUMM (0.0-0.2); ABSOLUTE EOSINOPHIL COUNT 0 /CUMM (0.0-0.7); ABSOLUTE GRANULOCYTE CT 6.1 /CUMM (1.4-6.5); ABSOLUTE LYMPH COUNT 0.2 /CUMM (1.2-3.4); ABSOLUTE MONOCYTE COUNT 0.2 /CUMM (0.10-0.60); BASOPHIL % 0 % (0.0-2.0); EOSINOPHIL % 0.6 % (0-5); GRANULOCYTE % 93.7 % (42.2-75.2); MEAN CORPUSCULAR HGB 34.1 PG (27.0-31.0); MEAN CORPUSCULAR HGB CONC 32.8 G/DL (33.0-37.0); MEAN CORPUSCULAR VOLUME 103.9 FL (80.0-94.0); MEAN PLATELET VOLUME 7.6 FL (7.4-10.4); PLATELET COUNT 209 /CUMM (130-400); RBC DISTRIBUTION WIDTH 19.1 % (11.5-14.5); RED BLOOD CELL CT 1.47 /CUMM (4.70-6.10); WHITE BLOOD CELL COUNT 6.5 /CUMM (4.8-10.8)
--- NOTE | 2017-05-14 08:03 | NUR ---
TRANSFUSION OF 1 UNIT PRBC STARTED; CONFIRMED/VERIFIED AT BEDSIDE PRIOR TO START OF TRANSFUSION WITH Morales SHARIF RN; WILL CONTINUE TO MONITOR PATIENT;
[2017-05-14 08:26] VITALS: BP 120/60
[2017-05-14 08:30] LABS: HEMATOCRIT 15.3 % (42-52)
--- NOTE | 2017-05-14 09:11 | NUR ---
RECEIVED CALL FROM LAB RE RESULTS OF TYPE AND SCREEN AND ANTIBODY CROSSMATCH. BLOOD AVAILABLE IS "LEAST INCOMPATIBLE". AT APPROX 0130, DISCUSSED WITH ONCDR JL GEE, PATIENT'S ADMISSION STATUS AND CURRENT ORDER FOR BLOOD TRANSFUSION AND STATUS OF AVAILABLE BLOOD. MD MADE DECISION TO DEFER BLOOD TRANSFUSION UNTIL INCREASED MONITORING ON DAYS COULD BE ACHIEVED AND PRE-MEDICATION NEEDS DETERMINED. PATIENT'S STATUS MONITORED AND STABLE AT THIS TIME.
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
--- NOTE | 2017-05-14 10:37 | PN- Hematology ---
Subjective Subjective: He feels about the same. He has no fever or chills. His temperature was around 100F overnight. He had some headaches but not bad. He has some palpitation in his ears at time. He has no headaches or dizziness. Review of Systems Constitutional: Denies: chills, fever. Cardiovascular: Reports: palpitations. Denies: chest pain. Respiratory: Denies: short of breath. Gastrointestinal: Denies: abdominal pain. All Other Systems: Reviewed and Negative Objective Vital Signs and I&Os Vital Signs Date Time Temp Pulse Resp B/P B/P Pulse O2 O2 Flow FiO2 Mean Ox Delivery Rate 05/14 08 98.9 97 18 120/60 97 Room Air 05/14 0751 99.1 100 18 114/64 98 Room Air 05/14 0205 100.0 05/13 2330 100.0 96 20 120/60 96 Room Air 05/13 2202 99.5 97 18 118/57 97 Room Air 05/13 2201 99.5 05/13 2006 99.2 102 18 122/60 98 Room Air 05/13 1722 100 18 130/58 100 05/13 1446 Room Air 05/13 1418 98.1 105 15 137/79 95 Room Air Room Air Intake & Output 05/14 1600 05/14 0800 05/14 0000 05/13 1600 05/13 0800 05/13 0000 Intake Total 10 Output Total 2 Balance 8 Intake, IV 10 Output, Urine 2 Patient 127.006 kg 127.006 kg Weight Weight Reported by Patient Measurement Method Physical Exam General Appearance: well developed/nourished, no apparent distress, alert, awake , comfortable Head: normal appearance Ears, Nose, Throat: normal pharynx Respiratory: normal breath sounds, chest non-tender, no respiratory distress Cardiovascular: tachycardia Abdomen: normal bowel sounds, soft, non-tender Extremities: no edema Skin: jaundice Current Medications: Current Medications Sig/Katey Start time Last Medication Dose Route Stop Time Status Admin Acetaminophen 0 .STK-MED ONE 05/13 2201 DC PO Acetaminophen 325 MG Q6P PRN 05/13 1715 AC 05/13 PO 2201 Folic Acid 1 MG DAILY 05/14 1000 AC PO Ibuprofen 400 MG Q6 PRN 05/13 1545 DC PO Morphine Sulfate 1 MG Q4 PRN 05/13 1545 AC IV Multivitamins 1 TAB DAILY 05/14 1000 DC PO Oxycodone/ 2 TAB Q6 PRN 05/13 1545 DC Acetaminophen PO Prednisone 180 MG DAILY 05/14 1000 AC PO Results Last 24 Hours of Lab Results: Laboratory Tests 05/14 05/13 0627 1442 Chemistry Sodium (137 - 145 mmol/L) 135 L Potassium (3.5 - 5.1 mmol/L) 4.2 Chloride (98 - 107 mmol/L) 100 Carbon Dioxide (22 - 30 mmol/L) 28 Anion Gap (5 - 16) 8 BUN (9 - 20 mg/dL) 18 Creatinine (0.7 - 1.2 mg/dL) 0.8 Estimated GFR (>60 ml/min) > 60 BUN/Creatinine Ratio (7 - 25 %) 22.5 Total Bilirubin (0.2 - 1.3 mg/dL) 3.8 H Lactate Dehydrogenase (313 - 618 U/L) 724 H Hematology CBC w Diff MAN DIFF ORDERED WBC (4.8 - 10.8 /CUMM) 6.5 RBC (4.70 - 6.10 /CUMM) 1.47 L Hgb (14.0 - 18.0 G/DL) 5.0 *L Hct (42 - 52 %) 15.3 *L MCV (80.0 - 94.0 FL) 103.9 H MCH (27.0 - 31.0 PG) 34.1 H RDW (11.5 - 14.5 %) 19.1 H Plt Count (130 - 400 /CUMM) 209 MPV (7.4 - 10.4 FL) 7.6 Gran % (42.2 - 75.2 %) 93.7 H Lymphocytes % (20.5 - 51.1 %) 3.4 L Monocytes % (1.7 - 9.3 %) 2.3 Eosinophils % (0 - 5 %) 0.6 Basophils % (0.0 - 2.0 %) 0 L Absolute Granulocytes (1.4 - 6.5 /CUMM) 6.1 Segmented Neutrophils (42.2 - 75.2 %) 87 H Band Neutrophils (0.0 - 5.0 %) 9 H Absolute Lymphocytes (1.2 - 3.4 /CUMM) 0.2 L Lymphocytes (20.5 - 51.1 %) 3 L Monocytes (1.7 - 9.3 %) 1 L Absolute Monocytes (0.10 - 0.60 /CUMM) 0.2 Absolute Eosinophils (0.0 - 0.7 /CUMM) 0 Absolute Basophils (0.0 - 0.2 /CUMM) 0 Nucleated RBCs (0.0 - 0.0 /100WBC) 1 H Platelet Estimate (ADEQUATE) ADEQUATE Polychromasia 2+ Poikilocytosis 1+ Basophilic Stippling Anisocytosis 1+ PUBS MCHC (33.0 - 37.0 G/DL) 32.8 L Retic Count (0.5 - 2.0 %) Pending Immunology Rheum Factor Semi-Quant (<12 IU/Ml) 8.6 06 1442 Chemistry Sodium (137 - 145 mmol/L) 133 L Potassium (3.5 - 5.1 mmol/L) 4.3 Chloride (98 - 107 mmol/L) 98 Carbon Dioxide (22 - 30 mmol/L) 26 Anion Gap (5 - 16) 9 BUN (9 - 20 mg/dL) 22 H Creatinine (0.7 - 1.2 mg/dL) 0.7 Estimated GFR (>60 ml/min) > 60 BUN/Creatinine Ratio (7 - 25 %) 31.4 H Glucose (65 - 99 mg/dL) 120 H Calcium (8.4 - 10.2 mg/dL) 8.5 Total Bilirubin (0.2 - 1.3 mg/dL) 3.1 H AST (17 - 59 U/L) 21 ALT (21 - 72 U/L) 39 Alkaline Phosphatase (< 127 U/L) 61 Troponin I (<0.11 ng/ml) < 0.01 Total Protein (6.3 - 8.2 g/dL) 6.3 Albumin (3.5 - 5.0 g/dL) 3.6 Globulin (1.9 - 4.2 gm/dL) 2.7 Albumin/Globulin Ratio (1.1 - 2.2 %) 1.3 Hematology CBC w Diff MAN DIFF ORDERED WBC (4.8 - 10.8 /CUMM) 8.8 RBC (4.70 - 6.10 /CUMM) 1.64 L Hgb (14.0 - 18.0 G/DL) 5.8 *L Hct (42 - 52 %) 17.4 *L MCV (80.0 - 94.0 FL) 105.7 H MCH (27.0 - 31.0 PG) 35.4 H RDW (11.5 - 14.5 %) 19.8 H Plt Count (130 - 400 /CUMM) 216 MPV (7.4 - 10.4 FL) 7.6 Gran % (42.2 - 75.2 %) 95.2 H Lymphocytes % (20.5 - 51.1 %) 3.7 L Monocytes % (1.7 - 9.3 %) 0.9 L Eosinophils % (0 - 5 %) 0.2 Basophils % (0.0 - 2.0 %) 0 L Absolute Granulocytes (1.4 - 6.5 /CUMM) 8.4 H Segmented Neutrophils (42.2 - 75.2 %) 91 H Band Neutrophils (0.0 - 5.0 %) 4 Absolute Lymphocytes (1.2 - 3.4 /CUMM) 0.3 L Lymphocytes (20.5 - 51.1 %) 2 L Monocytes (1.7 - 9.3 %) 1 L Absolute Monocytes (0.10 - 0.60 /CUMM) 0.1 L Absolute Eosinophils (0.0 - 0.7 /CUMM) 0 Absolute Basophils (0.0 - 0.2 /CUMM) 0 Metamyelocytes (0.0 - 1.0 %) 2 H Platelet Estimate (ADEQUATE) ADEQUATE Polychromasia 2+ Hypochromic-Microcytic 3+ Poikilocytosis 2+ Basophilic Stippling Anisocytosis 1+ Macrocytic Cells 1+ PUBS MCHC (33.0 - 37.0 G/DL) 33.5 Immunology AAKASH Titer Pending Anti-Nuclear Antibody Pending Assessment/Plan Assessment/Recommendations: Mr. Stanley is a 47-year-old male without significant past history who was recently diagnosed with autoimmune hemolytic anemia who presents with worsening symptomatic anemia. Blood bank had a little difficulty with matching his blood. Blood was ready yesterday but due to late at night, it was decided to be held off until the morning. He will get least incompatible blood due to difficulty with complete matching for his AIHA. His hemolytic parameters are worse today. He will get 2 units pRBC transfusion slowly. He will continue prednisone 1.5 mg /kg with folic acid. If he continues to have drop in his hemoglobin/hematocrit he will likely need IVIG 1 gm/kg/day. AAKASH is pending and RF is negative. For right now, we will monitor CBC. 1. Slow transfusion of least incompatible pRBC 2. Continue prednisone 1.5 mg/kg daily 3. Continue folic acid 1 mg daily 4. Follow up AAKASH 5. Will consider IVIg if not responding well to transfusion 6. 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 Problem List: 1. Hemolytic anemia 2. Symptomatic anemia
[2017-05-14 11:05] VITALS: BP 120/60
--- NOTE | 2017-05-14 11:08 | PN-Observation ---
Observation Note Observation Note _ I have personally examined KAMLA MCKEON. him disposition is uncertain at this time. Before a determination can be made, he requires continued observation for the following reasons patient is to be observed to ensure adequate response to transfusion which are currently ongoing occurs. Assessment/Plan Assessment: Mr Mckeon is 47-year-old male with PMH of spinal stenosis on NSAIDs, was seen at the emergency department on 05/13/2017 after being sent in by dry cell and battery assembler and oncologist Dr. Reagan due to anemia and low H&H found at the office of Dr. Reagan. Currently placed under observation. # Idiopathic Symptomatic anemia, * Continue High Dose steroids 1.5 mg/kg. 180 mg daily. If patient does not response adequately will require IVIG. * Folic Acid, 1 mg daily. * 2 units of PRBCs was transfused 05/14/2017 * H&H this a.m. 5.0 and 15.3 respectively. * In am: LDH, Billirubin, Reticulocyte count. #History of Blood Loss * Can have GI work up as an outpatient. * CBC daily. If acute signs of bleeding, inform GI Stat. # Hx of spinal stenosis * Keep off NSAID in the setting of ABLA. Patient does have a history of long standing NSAID use, due to spinal stenosis. * Manage pain with morphine and Tylenol. Diet: Regular DVT ppx: ALPS Problem List: 1. Anemia Qualifiers Anemia type: acquired or hereditary hemolytic anemia Hemolytic anemia type: acquired, autoimmune, other Qualified Code: D59.1 - Other autoimmune hemolytic anemias 2. Hemolytic anemia 3. GI bleed 4. Symptomatic anemia Subjective Follow-up For: Symptomatic Anemia Subjective: Mr. Mckeon was seen and examined this morning. He is resting comfortably in bed. States he still feels lethargic. Endorses a mild headache. Was interrupted multiple times overnight and unable to get much rest. He is alert although seems laconic based on the lack of action over the last 12 hours. Denies any fever, chills, nausea, vomiting. Was discussed with him extensively that there has been blood ordered and also some risks to present he is comfortable proceeding with blood. Denies any heart palpitations or weakness or shortness of breath. Review of Systems Constitutional: Reports: see HPI. Objective Last 24 Hrs of Vital Signs/I&O Vital Signs Date Time Temp Pulse Resp B/P B/P Pulse O2 O2 Flow FiO2 Mean Ox Delivery Rate 05/14 1105 98.8 98 18 120/60 100 Room Air 05/14 0826 98.9 97 18 120/60 97 Room Air 05/14 0751 99.1 100 18 114/64 98 Room Air 05/14 0205 100.0 05/13 2330 100.0 96 20 120/60 96 Room Air 05/13 2202 99.5 97 18 118/57 97 Room Air 05/13 2201 99.5 05/13 2006 99.2 102 18 122/60 98 Room Air 05/13 1722 100 18 130/58 100 05/13 1446 Room Air 05/13 1418 98.1 105 15 137/79 95 Room Air Room Air Intake & Output 05/14 1600 05/14 0800 05/14 0000 Intake Total 10 Output Total 400 2 Balance -400 8 Intake, IV 10 Output, Urine 400 2 Patient 127.006 kg Weight Physical Exam General Appearance: Alert, Oriented X3, Cooperative Cardiovascular: Regular Rate, Normal S1, Normal S2 Lungs: Clear to Auscultation Abdomen: Normal Bowel Sounds, Soft, No Tenderness Neurological: Normal Gait, Normal Speech, Strength at 5/5 X4 Ext
--- NOTE | 2017-05-14 11:52 | Patient Discharge Instructions ---
Discharge Instructions General Discharge Information You were seen/treated for: Anemia You had these procedures: Blood Transfusions Watch for these problems: If you feel weak, experience chest pain, shortness breath, or increased weakness please come back to the emergency department. Should you experience any blood loss or changes to your stool please come back to the emergency department. Special Instructions: On 05/20/2017 please have a CBC checked. We have provided you a script. Please forward the results of this test your primary care physician. Please follow-up with your primary care physician within 7 days of discharge. Please inform your primary care physician of this admission to the hospital. Please follow up with Dr Reagan on 05/20/2017. Please inform the primary for this care physician of the treatment administered to you. Please follow-up with a director gift within 7 days. We have provided you referral. Avoid all Non-Steroidal Anti Inflamatories, as these can cause blood loss. Diet Continue normal diet: Yes Activity Full Activity/No Limits: No Activity Self Limited: Yes (As Tolerated ) Acute Coronary Syndrome Inclusion Criteria At DC or during hospital stay patient has or had the following: ACS DIAGNOSIS No Discharge Core Measures Meds if any: Prescribed or Continued at Discharge Meds if any: NOT Prescribed or Continued at Discharge Congestive Heart Failure Inclusion Criteria At DC or during hospital stay patient has or had the following: CHF DIAGNOSIS No Discharge Core Measures Meds if any: Prescribed or Continued at Discharge Meds if any: NOT Prescribed or Continued at Discharge Cerebrovascular accident Inclusion Criteria At DC or during hospital stay patient has or had the following: CVA/TIA Diagnosis No Discharge Core Measures Meds if any: Prescribed or Continued at Discharge Meds if any: NOT Prescribed or Continued at Discharge Venous thromboembolism Inclusion Criteria VTE Diagnosis No VTE Type NONE VTE Confirmed by (Test) NONE Discharge Core Measures - Per Current guidelines, there needs to be overlap - treatment for the first 5 days of Warfarin therapy. - If discharged on Warfarin prior to 5 days of - overlap therapy, the patient will need to be - assessed for post discharge needs including - *Post discharge parental anticoagulation - *Warfarin and/or parental anticoagulation education - *Follow up date to check INR post discharge At least 5 days overlap therapy as Inpatient No Meds if any: Prescribed or Continued at Discharge Note: Overlap Therapy is Warfarin and Anticoagulant Meds if any: NOT Prescribed or Continued at Discharge
[2017-05-14 12:05] VITALS: BP 124/64
[2017-05-14 14:47] VITALS: BP 120/62
--- NOTE | 2017-05-14 18:21 | NUR ---
NURSING NOTE; PT REFUSING 1800 CBC, TURF MANAGER ALEX #[phone] AWARE, NO FURTHER ORDERS, SAFETY MAINTAINED, NEEDS WITHIN REACH
--- NOTE | 2017-05-14 20:48 | PN- Att Addend ---
Attending Addendum Attending Brief Note 47M PMH spinal stenosis, recently discharged after admission for symptomatic anemia and 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 Patient had responded well to Prednisone on prior admission, but on discharge, follow up CBC continued to have dropping Hgb, 5.8 initially, dropped to 5.0 overnight. Patient felt weak and fatigued in the morning. Blood bank had difficulty in finding compatible pRBC, received 2 units pRBC. Patient feels much better now and looks more awake and alert. He appears jaundiced but well. Exam otherwise negative. Retic count is 22% today. Current Medications Sig/Katey Start time Last Medication Dose Route Stop Time Status Admin Acetaminophen 0 .STK-MED ONE 05/13 2201 DC PO Acetaminophen 325 MG Q6P PRN 05/13 1715 AC 05/13 PO 2201 Folic Acid 1 MG DAILY 05/14 1000 AC 05/14 PO 1035 Morphine Sulfate 1 MG Q4 PRN 05/13 1545 AC IV Multivitamins 1 TAB DAILY 05/14 1000 DC PO Prednisone 180 MG DAILY 05/14 1000 AC 05/14 PO 1035 Laboratory Tests 05/14 05/14 1800 0627 Chemistry Sodium (137 - 145 mmol/L) 135 L Potassium (3.5 - 5.1 mmol/L) 4.2 Chloride (98 - 107 mmol/L) 100 Carbon Dioxide (22 - 30 mmol/L) 28 Anion Gap (5 - 16) 8 BUN (9 - 20 mg/dL) 18 Creatinine (0.7 - 1.2 mg/dL) 0.8 Estimated GFR (>60 ml/min) > 60 BUN/Creatinine Ratio (7 - 25 %) 22.5 Total Bilirubin (0.2 - 1.3 mg/dL) 3.8 H Lactate Dehydrogenase (313 - 618 U/L) 724 H Hematology CBC w Diff Cancelled MAN DIFF ORDERED WBC (4.8 - 10.8 /CUMM) Cancelled 6.5 RBC (4.70 - 6.10 /CUMM) Cancelled 1.47 L Hgb (14.0 - 18.0 G/DL) Cancelled 5.0 *L Hct (42 - 52 %) Cancelled 15.3 *L MCV (80.0 - 94.0 FL) Cancelled 103.9 H MCH (27.0 - 31.0 PG) Cancelled 34.1 H RDW (11.5 - 14.5 %) Cancelled 19.1 H Plt Count (130 - 400 /CUMM) Cancelled 209 MPV (7.4 - 10.4 FL) Cancelled 7.6 Gran % (42.2 - 75.2 %) 93.7 H Lymphocytes % (20.5 - 51.1 %) 3.4 L Monocytes % (1.7 - 9.3 %) 2.3 Eosinophils % (0 - 5 %) 0.6 Basophils % (0.0 - 2.0 %) 0 L Absolute Granulocytes (1.4 - 6.5 /CUMM) 6.1 Segmented Neutrophils (42.2 - 75.2 %) 87 H Band Neutrophils (0.0 - 5.0 %) 9 H Absolute Lymphocytes (1.2 - 3.4 /CUMM) 0.2 L Lymphocytes (20.5 - 51.1 %) 3 L Monocytes (1.7 - 9.3 %) 1 L Absolute Monocytes (0.10 - 0.60 /CUMM) 0.2 Absolute Eosinophils (0.0 - 0.7 /CUMM) 0 Absolute Basophils (0.0 - 0.2 /CUMM) 0 Nucleated RBCs (0.0 - 0.0 /100WBC) 1 H Platelet Estimate (ADEQUATE) ADEQUATE Polychromasia 2+ Poikilocytosis 1+ Basophilic Stippling Anisocytosis 1+ PUBS MCHC (33.0 - 37.0 G/DL) Cancelled 32.8 L Retic Count (0.5 - 2.0 %) 22.01 H 1. C3 autoimmune hemolytic anemia 2. Symptomatic anemia Plan - Observation in general medicine - Recheck CBC tomorrow morning - Hematology consult - Recheck CBC in the morning - ALPS for DVT PPx - Continue increased Prednisone - May require IVIg
[2017-05-14 21:48] VITALS: BP 146/70
[2017-05-15] VITALS (18 sets, daily range): BP systolic 110–161; BP diastolic 60–92
--- NOTE | 2017-05-15 06:21 | PN-Observation ---
Observation Note Observation Note _ I have personally examined KAMLA MCKEON. him disposition is uncertain at this time. Before a determination can be made, he requires continued observation for the following reasons patient was transfused yesterday's to be monitored to ensure that he doesn't have a rapid fall in his H&H. Continues to express symptomatic anemia. Subjective Follow-up For: Idioathic Anemia Review of Systems Constitutional: Reports: see HPI. Objective Last 24 Hrs of Vital Signs/I&O Vital Signs Date Time Temp Pulse Resp B/P B/P Pulse O2 O2 Flow FiO2 Mean Ox Delivery Rate 05/15 0606 99.1 88 20 110/60 96 05/14 2148 99.6 91 20 146/70 97 05/14 1447 99.6 100 18 120/62 97 Room Air 05/14 1205 99.1 98 18 124/64 100 Room Air 05/14 1105 98.8 98 18 120/60 100 Room Air Intake & Output 05/15 1600 05/15 0800 05/15 0000 Intake Total 220 900 Output Total 500 Balance -280 900 Intake, Oral 220 900 Output, Urine 500 Physical Exam General Appearance: Alert, Oriented X3, Cooperative Skin Temp/Moisture Exam: Hot/Diaphoretic HEENT: Mucous Membr. moist/pink Cardiovascular: Regular Rate, Normal S1, Normal S2 Lungs: Clear to Auscultation Abdomen: Normal Bowel Sounds, Soft, No Tenderness Neurological: Normal Speech Extremities: No Edema 05/15 606 99.1 88 20 110/60 96 05/14 2148 99.6 91 20 146/70 97 05/14 1447 99.6 100 18 120/62 97 Room Air 05/14 1205 99.1 98 18 124/64 100 Room Air 05/14 1105 98.8 98 18 120/60 100 Room Air Intake & Output 05/15 1600 05/15 0800 05/15 0000 Intake Total 220 900 Output Total 500 Balance -280 900 Intake, Oral 220 900 Output, Urine 500 Physical Exam General Appearance: Alert, Oriented X3, Cooperative Skin Temp/Moisture Exam: Hot/Diaphoretic HEENT: Mucous Membr. moist/pink Cardiovascular: Regular Rate, Normal S1, Normal S2 Lungs: Clear to Auscultation Abdomen: Normal Bowel Sounds, Soft, No Tenderness Neurological: Normal Speech Extremities: No Edema
[2017-05-15 07:56] LABS: ABSOLUTE BASOPHIL COUNT 0 /CUMM (0.0-0.2); ABSOLUTE EOSINOPHIL COUNT 0 /CUMM (0.0-0.7); ABSOLUTE GRANULOCYTE CT 5.8 /CUMM (1.4-6.5); ABSOLUTE LYMPH COUNT 0.4 /CUMM (1.2-3.4); ABSOLUTE MONOCYTE COUNT 0.2 /CUMM (0.10-0.60); BASOPHIL % 0.2 % (0.0-2.0); EOSINOPHIL % 0.6 % (0-5); GRANULOCYTE % 89.4 % (42.2-75.2); MEAN CORPUSCULAR HGB 33.9 PG (27.0-31.0); MEAN CORPUSCULAR VOLUME 102.9 FL (80.0-94.0); MEAN PLATELET VOLUME 7.6 FL (7.4-10.4); PLATELET COUNT 202 /CUMM (130-400); RBC DISTRIBUTION WIDTH 21.1 % (11.5-14.5); RED BLOOD CELL CT 1.69 /CUMM (4.70-6.10); WHITE BLOOD CELL COUNT 6.4 /CUMM (4.8-10.8)
[2017-05-15 08:22] LABS: HEMATOCRIT 17.4 % (42-52)
--- NOTE | 2017-05-15 09:23 | PN- Student ---
Subjective Subjective: Pt was seen and examined at the bedside. He was alert and pleasant during the interview. Pt reports feeling good today and says that his weakness and shortness of breath on exersion seem to be getting better. He had a temperature of 100.0 last night but did not feel fevers or chills. He does notice some palpitations in his ears at times. He has a lot more energy and is now able to walk a couple flights of stairs before getting tired which is still far from his baseline but significantly improved. He reports sleeping well and having a good diet. His bowel movements are regular and he notices a bit of BRBPR but this is normal for him since he has hemorrhoids. He states that his back pain is well controlled with medication. Denies chest pain, nausea, vomitting, abdominal pain, edema, changes in mood, joint pain, or muscle ache. Objective Objective: Current Medications Sig/Katey Start time Last Medication Dose Route Stop Time Status Admin Acetaminophen 325 MG Q6P PRN 05/13 1715 AC 05/13 PO 2201 Folic Acid 1 MG DAILY 05/14 1000 AC 05/14 PO 1035 Morphine Sulfate 1 MG Q4 PRN 05/13 1545 AC IV Prednisone 180 MG DAILY 05/14 1000 AC 05/14 PO 1035 Vital Signs Date Time Temp Pulse Resp B/P B/P Pulse O2 O2 Flow FiO2 Mean Ox Delivery Rate 05/15 0606 99.1 88 20 110/60 96 05/14 2148 99.6 91 20 146/70 97 05/14 1447 99.6 100 18 120/62 97 Room Air 05/14 1205 99.1 98 18 124/64 100 Room Air 05/14 1105 98.8 98 18 120/60 100 Room Air Intake & Output 05/15 1600 05/15 0800 05/15 0000 Intake Total 220 900 Output Total 500 Balance -280 900 Intake, Oral 220 900 Output, Urine 500 Physical Exam General: mildly jaundiced, NAD, lying comfortably Eyes: mild scleral icterus Neck: supple, no bruit Cardiac: normal s1s2, no mrg, rrr Pulm: cta bl, normal chest expansion, normal ap diameter GI: no ttp, no rebound, no guarding Extremities: bruising on the anterior aspect of lower legs bl, no edema, 1+ DP/ PT pulses Results Results: Laboratory Tests 05/15/17 0620: Lactate Dehydrogenase 693 H, CBC w Diff MAN DIFF ORDERED, RBC 1.69 L, MCV 102.9 H, MCH 33.9 H, RDW 21.1 H, MPV 7.6, Gran % 89.4 H, Lymphocytes % 6.2 L, Monocytes % 3.6, Eosinophils % 0.6, Basophils % 0.2, Absolute Granulocytes 5.8, Segmented Neutrophils 87 H, Band Neutrophils 3, Absolute Lymphocytes 0.4 L, Lymphocytes 7 L, Monocytes 2, Absolute Monocytes 0.2, Absolute Eosinophils 0 , Absolute Basophils 0, Metamyelocytes 1, Nucleated RBCs 2 H, Platelet Estimate VERIFIED BY SMEAR, Polychromasia 2+, Poikilocytosis 1+, Basophilic Stippling 1+, Anisocytosis 2+, Macrocytic Cells 1+, PUBS MCHC 33.0, Retic Count 19.79 H 05/14/17626: Anion Gap 8, Estimated GFR > 60, BUN/Creatinine Ratio 22.5, Total Bilirubin 3.8 H, Lactate Dehydrogenase 724 H, CBC w Diff MAN DIFF ORDERED, RBC 1.47 L, MCV 103.9 H, MCH 34.1 H, RDW 19.1 H, MPV 7.6, Gran % 93.7 H, Lymphocytes % 3.4 L, Monocytes % 2.3, Eosinophils % 0.6, Basophils % 0 L, Absolute Granulocytes 6.1, Segmented Neutrophils 87 H, Band Neutrophils 9 H, Absolute Lymphocytes 0.2 L, Lymphocytes 3 L, Monocytes 1 L, Absolute Monocytes 0.2, Absolute Eosinophils 0, Absolute Basophils 0, Nucleated RBCs 1 H, Platelet Estimate ADEQUATE, Polychromasia 2+, Poikilocytosis 1+, Basophilic Stippling , Anisocytosis 1+, PUBS MCHC 32.8 L, Retic Count 22.01 H Assessment/Plan Assessment: Pt is a 47 yo white male recently diagnosed with autoimmune hemolytic anemia being managed with prednisone and folic acid who presented with jaundice and easy fatigueability and a low H&H on labs. Today he reports having increased and energy and feeling a bit better. He had a temperature of 100.0 overnight but denied any fever or chills. He is hemodynamically stable but his Hb is only 5.7 following his pRBC transfusion yesterday. He may need IVIG since his anemia doesn't appear to be correcting to appropriate levels. However, his elevated retic count indicates that his marrow is productive. AAKASH was negative ruling out SLE. Plan: #1 autoimmune hemolytic anemia -continue prednisone and folic acid -order H&H -consider IVIG -consider elective splenectomy if sx refractory #2 splenomegaly spleen was enlarged on abd ct -avoid contact sports #3 back pain -motrin and tylenol prn energy and feeling a bit better. He had a temperature of 100.0 overnight but denied any fever or chills. He is hemodynamically stable and his H&H is this morning following his pRBC transfusion yesterday. His elevated retic count indicates that his marrow is productive. AAKASH pending Retic count 22.01 Plan: #1 autoimmune hemolytic anemia -continue prednisone and folic acid -monitor H&H -consider elective splenectomy if sx refractory #2 splenomegaly spleen was enlarged on abd ct -reccomend avoiding contact sports #3 back pain -continue motrin and tylenol prn
--- NOTE | 2017-05-15 11:12 | PN- Hematology ---
Subjective Subjective: He feels a little better today. He denies any fever or chills. He has no nausea or vomiting. He has no fever or chills. He has no new pain. Review of Systems: Constitutional: Denies: chills, fever. Cardiovascular: Denies: chest pain. palpitation. Respiratory: Denies: short of breath. Gastrointestinal: Denies: abdominal pain. All Other Systems: Reviewed and Negative Objective Vital Signs and I&Os Vital Signs Date Time Temp Pulse Resp B/P B/P Pulse O2 O2 Flow FiO2 Mean Ox Delivery Rate 05/15 0606 99.1 88 20 110/60 96 05/14 2148 99.6 91 20 146/70 97 / 1447 99.6 100 18 120/62 97 Room Air 05/14 1205 99.1 98 18 124/64 100 Room Air 05/14 1105 98.8 98 18 120/60 100 Room Air Intake & Output 05/15 1600 05/15 0800 05/15 0000 05/14 1600 05/14 0800 05/14 0000 Intake Total 991 135 5617 10 Output Total 500 400 2 Balance -280 900 800 8 Intake, Blood 700 Product Intake, IV 10 Intake, Oral 220 900 500 Output, Urine 500 400 2 Patient 127.006 kg Weight Physical Exam: General Appearance: well developed/nourished, no apparent distress, alert, awake , comfortable Head: normal appearance, sclera mildly icteric Ears, Nose, Throat: normal pharynx Respiratory: normal breath sounds, chest non-tender, no respiratory distress Cardiovascular: tachycardia Abdomen: normal bowel sounds, soft, non-tender Extremities: no edema Current Medications: Current Medications Sig/Katey Start time Last Medication Dose Route Stop Time Status Admin Acetaminophen 325 MG Q6P PRN 05/13 1715 AC 05/13 PO 2201 Folic Acid 1 MG DAILY 05/14 1000 AC 05/15 PO 1005 Morphine Sulfate 1 MG Q4 PRN 05/13 1545 AC IV Prednisone 180 MG DAILY 05/14 1000 AC 05/15 PO 1005 Results Last 24 Hours of Lab Results: Laboratory Tests 05/15 05/14 0620 1800 Chemistry Lactate Dehydrogenase (313 - 618 U/L) 693 H Hematology CBC w Diff MAN DIFF ORDERED Cancelled WBC (4.8 - 10.8 /CUMM) 6.4 Cancelled RBC (4.70 - 6.10 /CUMM) 1.69 L Cancelled Hgb (14.0 - 18.0 G/DL) 5.7 *L Cancelled Hct (42 - 52 %) 17.4 *L Cancelled MCV (80.0 - 94.0 FL) 102.9 H Cancelled MCH (27.0 - 31.0 PG) 33.9 H Cancelled RDW (11.5 - 14.5 %) 21.1 H Cancelled Plt Count (130 - 400 /CUMM) 202 Cancelled MPV (7.4 - 10.4 FL) 7.6 Cancelled Gran % (42.2 - 75.2 %) 89.4 H Lymphocytes % (20.5 - 51.1 %) 6.2 L Monocytes % (1.7 - 9.3 %) 3.6 Eosinophils % (0 - 5 %) 0.6 Basophils % (0.0 - 2.0 %) 0.2 Absolute Granulocytes (1.4 - 6.5 /CUMM) 5.8 Segmented Neutrophils (42.2 - 75.2 %) 87 H Band Neutrophils (0.0 - 5.0 %) 3 Absolute Lymphocytes (1.2 - 3.4 /CUMM) 0.4 L Lymphocytes (20.5 - 51.1 %) 7 L Monocytes (1.7 - 9.3 %) 2 Absolute Monocytes (0.10 - 0.60 /CUMM) 0.2 Absolute Eosinophils (0.0 - 0.7 /CUMM) 0 Absolute Basophils (0.0 - 0.2 /CUMM) 0 Metamyelocytes (0.0 - 1.0 %) 1 Nucleated RBCs (0.0 - 0.0 /100WBC) 2 H Platelet Estimate (ADEQUATE) VERIFIED BY SMEAR Polychromasia 2+ Poikilocytosis 1+ Basophilic Stippling 1+ Anisocytosis 2+ Macrocytic Cells 1+ PUBS MCHC (33.0 - 37.0 G/DL) 33.0 Cancelled Retic Count (0.5 - 2.0 %) 19.79 H Assessment/Plan Assessment/Recommendations: Mr. Stanley is a 47-year-old male without significant past history who was recently diagnosed with autoimmune hemolytic anemia who presents with worsening symptomatic anemia. Blood bank had a little difficulty with matching his blood. Blood was ready yesterday but due to late at night, it was decided to be held off until the morning. He will get least incompatible blood due to difficulty with complete matching for his AIHA. He received 2 units of pRBC yesterday. Hgb is only 5.7 today. LDH is improved. Retic count is a little lower. He is on prednisone 1.5 mg/kg. He continues to have hemolysis. I will give him IVIG 1 gm/kg/day today. 1. Continue prednisone 1.5 mg/kg daily 2. Continue folic acid 1 mg daily 3. Will give IVIg 1 gm/kg/day 4. Transfuse with 1 unit pRBC after IVIg Please call [phone] with any questions. Problem List: 1. Hemolytic anemia 2. Symptomatic anemia
--- NOTE | 2017-05-15 11:30 | PN- Housestaff ---
CATRINA KUMAR,ALEX 05/15/17 1130: Subjective Follow-up For: Symptomatic Anemia Subjective: Mr Stanley was seen and examined this morning. He is resting in bed. States that he feels better although endorses a mild headache. Patient expresses that he is eager to find out how he has responded to 2 units of PRBCs. He declined CBC last night. He states he was able to get some rest. His urine discoloration has improved, he denies any dysuria or frequency and states urine looks yellow as opposed to orange and cola colored. Denies any fever, chills, nausea, vomiting. Review of Systems Constitutional: Reports: see HPI. Objective Last 24 Hrs of Vital Signs/I&O Vital Signs Date Time Temp Pulse Resp B/P B/P Pulse O2 O2 Flow FiO2 Mean Ox Delivery Rate 05/15 0606 99.1 88 20 110/60 96 05/14 2148 99.6 91 20 146/70 97 05/14 1447 99.6 100 18 120/62 97 Room Air 05/14 1205 99.1 98 18 124/64 100 Room Air Intake & Output 05/15 1600 05/15 0800 05/15 0000 Intake Total 220 900 Output Total 500 Balance -280 900 Intake, Oral 220 900 Output, Urine 500 Physical Exam General Appearance: Alert, Oriented X3, Cooperative Cardiovascular: Regular Rate, Normal S1, Normal S2 Lungs: Clear to Auscultation Abdomen: Normal Bowel Sounds, Soft, No Tenderness Neurological: Normal Speech, Strength at 5/5 X4 Ext Extremities: No Clubbing, No Cyanosis, No Edema Vascular: Normal Pulses Current Medications: Current Medications Sig/Katey Start time Last Medication Dose Route Stop Time Status Admin Acetaminophen 325 MG Q6P PRN 05/13 1715 AC 05/13 PO 2201 Folic Acid 1 MG DAILY 05/14 1000 AC 05/15 PO 1005 Immune Globulin 126 GM ONE ONE 05/15 1130 DC Water 2,100 ML IV 05/15 1131 Immune Globulin 127 GM ONE ONE 05/15 1115 CAN IV 05/15 1116 Morphine Sulfate 1 MG Q4 PRN 05/13 1545 AC IV Prednisone 180 MG DAILY 05/14 1000 AC 05/15 PO 1005 Last 24 Hrs of Lab/Vinh Results Last 24 Hrs of Labs/Mics: Laboratory Tests 05/15/17 0620: Lactate Dehydrogenase 693 H, CBC w Diff MAN DIFF ORDERED, RBC 1.69 L, MCV 102.9 H, MCH 33.9 H, RDW 21.1 H, MPV 7.6, Gran % 89.4 H, Lymphocytes % 6.2 L, Monocytes % 3.6, Eosinophils % 0.6, Basophils % 0.2, Absolute Granulocytes 5.8, Segmented Neutrophils 87 H, Band Neutrophils 3, Absolute Lymphocytes 0.4 L, Lymphocytes 7 L, Monocytes 2, Absolute Monocytes 0.2, Absolute Eosinophils 0 , Absolute Basophils 0, Metamyelocytes 1, Nucleated RBCs 2 H, Platelet Estimate VERIFIED BY SMEAR, Polychromasia 2+, Poikilocytosis 1+, Basophilic Stippling 1+, Anisocytosis 2+, Macrocytic Cells 1+, PUBS MCHC 33.0, Retic Count 19.79 H 05/14/17 1800: CBC w Diff Cancelled, WBC Cancelled, RBC Cancelled, Hgb Cancelled, Hct Cancelled , MCV Cancelled, MCH Cancelled, RDW Cancelled, Plt Count Cancelled, MPV Cancelled, PUBS MCHC Cancelled Assessment/Plan Assessment: Mr Stanley is 47-year-old male with PMH of spinal stenosis on NSAIDs, was seen at the emergency department on 05/13/2017 after being sent in by coverage analyst and oncologist Dr. Reagan due to anemia and low H&H found at the office of Dr. Reagan. Admit to inpatient # Idiopathic Symptomatic anemia, * Continue High Dose steroids 1.5 mg/kg. 180 mg daily. * IVIG 126 gm/day ordered. * 1 Units PRBC to be transfused S/P IVIG infusion. * Folic Acid, 1 mg daily. * 2 units of PRBCs was transfused 05/14/2017 * H&H this a.m. 5.7 and 17.4 respectively. #History of Blood Loss * Can have GI work up as an outpatient. * CBC daily. If acute signs of bleeding, inform GI Stat. # Hx of spinal stenosis * Keep off NSAID in the setting of ABLA. Patient does have a history of long standing NSAID use, due to spinal stenosis. * Manage pain with morphine and Tylenol. Diet: Regular DVT ppx: ALPS Problem List: 1. Anemia 2. Hemolytic anemia 3. Symptomatic anemia Pain Ratin Pain Location: No Pain Pain Goal: Remain pain free Pain Plan: Tylenol PrN Tomorrow's Labs & Rationales: CBC: Monitor response to transfusion. LDH: Due to hemolysis. 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 Patient had responded well to Prednisone on prior admission, but on discharge, follow up CBC continued to have dropping Hgb, 5.8 initially, dropped to 5.0 overnight. Patient feels better after transfusion of 2 units pRBC. However, he continues to hemolyze and his Hct continues to drop. We jeffy start IVIg today. 1. C3 autoimmune hemolytic anemia 2. Symptomatic anemia Plan - Continue in general medicine, will convert stay to admission - Hematology consult - ALPS for DVT PPx - Continue increased Prednisone - Continue IVIg - Monitor CBC and renal function
--- NOTE | 2017-05-15 14:04 | NUR ---
IVIG STARTED AT 1350 AT 60ML/HR. NURSE ED WITH PATIENT. VSS. PT CURRENTLY TOLERATING WELL.
--- NOTE | 2017-05-15 17:20 | NUR ---
LATE ENTRY: IVIG STARTED ON PATIENT AT 1345, VSS - 134/72, HR 92, RR 18 98% ON RA. NO HIVES, ADVENTITIOUS LUNG SOUNDS, OR PAIN ON ASSESSMENT.
--- NOTE | 2017-05-15 18:12 | NUR ---
BAG 2/2 CARIMUNE INFUSING, NO S/SX REACTION NOTED, HEART SOUNDS RRR, LUNGS CLEAR IN ALL [place]. NO ERYTHEMA, URTICARIA, OR PRURITIS NOTED ON PHYSICAL EXAM. VSS - 160/82, HR 94, RR 18 97% RA, AFEBRILE 98.3. CARIMUNE INFUSING AT GOAL OF 381/HR (3MG/KG/HR). WCTM.
--- NOTE | 2017-05-15 20:44 | NUR ---
IVIG HAS FINISHED INFUSSING AT THIS TIME. PTS VITAL SIGNS ARE STABLE AND PT DENIES ANY PAIN AT THIS TIME.
[2017-05-16] VITALS (19 sets, daily range): BP systolic 112–144; BP diastolic 66–84
--- NOTE | 2017-05-16 06:19 | PN- Housestaff ---
See Addendum Subjective Follow-up For: Auto Immune Hemolytic Anemia Subjective: was seen and examined this morning. He is resting comfortably in bed patient states that he feels better. He is alert and oriented 3. He endorses a mild headache however states is much improved compared to the one he experienced 24 hours ago. Patient has had no felicita blood loss over last 24 hours. He states that his urine has continued to decrease in color which is previously cola colored. Denies any tachycardia or lightheadedness. Denies any fever, chills, nausea, vomiting. Reports good by mouth intake. Review of Systems Constitutional: Reports: see HPI. Objective Last 24 Hrs of Vital Signs/I&O Vital Signs Date Time Temp Pulse Resp B/P B/P Pulse O2 O2 Flow FiO2 Mean Ox Delivery Rate 05/16 0717 99.0 88 20 128/72 97 Room Air 05/15 2343 98.1 86 20 114/72 95 Room Air 05/15 2221 98.4 87 18 123/63 97 05/15 2043 98.3 86 18 149/84 98 Room Air 05/15 1945 98.0 84 18 138/76 98 Room Air 05/15 1855 98.9 86 18 161/92 99 Room Air 05/15 1812 98.3 05/15 1745 98.3 94 18 160/82 97 Room Air 05/15 1645 99.0 89 16 149/80 99 Room Air 05/15 1615 99.0 90 16 138/75 98 Room Air 05/15 1545 97.2 93 18 113/69 97 Room Air 05/15 1530 97.2 97 18 122/66 97 Room Air 05/15 1515 98.9 97 19 123/72 98 Room Air 05/15 1500 99.1 102 19 119/70 97 Room Air 05/15 1445 99.0 100 18 122/72 / 1430 98.6 101 19 121/69 06/14 1415 99.0 100 18 131/70 98 Room Air 05/15 1400 98.6 104 133/70 /14 1345 98.5 92 18 134/72 98 Room Air Intake & Output 05/16 1600 06/15 0800 06/15 0000 Intake Total 2650 Output Total 1100 Balance 1550 Intake, Blood 2550 Product Intake, IV 100 Intake, Oral 0 Number 0 Bowel Movements Output, Urine 1100 Physical Exam General Appearance: Alert, Oriented X3, Cooperative Skin: No Rashes, No Breakdown Cardiovascular: Regular Rate, Normal S1, Normal S2, No Murmurs Lungs: Clear to Auscultation Abdomen: Normal Bowel Sounds, Soft, No Tenderness Neurological: Normal Gait, Normal Speech, Strength at 5/5 X4 Ext Extremities: No Clubbing, No Edema, Normal Pulses Vascular: Normal Pulses Current Medications: Current Medications Sig/Katey Start time Last Medication Dose Route Stop Time Status Admin Acetaminophen 650 MG .STK-MED ONE 05/15 1400 DC PO 05/15 1401 Acetaminophen 325 MG Q6P PRN 05/13 1715 AC 05/15 PO 1400 Calcium Carbonate 500 MG DAILY 05/15 1909 AC 05/15 PO 1927 Diphenhydramine HCl 25 MG ONCE PRN 05/15 1330 AC IV Folic Acid 1 MG DAILY 05/14 1000 AC 05/15 PO 1005 Immune Globulin 126 GM DAILY 05/15 1200 AC 05/15 Water 2,100 ML IV 1401 Immune Globulin 126 GM ONE ONE 05/15 1130 DC 05/15 Water 2,100 ML IV 05/15 1131 1718 Immune Globulin 127 GM ONE ONE 05/15 1115 CAN IV 05/15 1116 Methylprednisolone 40 MG .STK-MED ONE 05/15 1400 DC IM 05/15 1401 Morphine Sulfate 1 MG Q4 PRN 05/13 1545 AC IV Prednisone 180 MG DAILY 05/14 1000 AC 05/15 PO 1005 Last 24 Hrs of Lab/Vinh Results Last 24 Hrs of Labs/Mics: Laboratory Tests 05/16/17 0636: Sodium Pending, Potassium Pending, Chloride Pending, Carbon Dioxide Pending, Anion Gap Pending, BUN Pending, Creatinine Pending, BUN/Creatinine Ratio Pending , Glucose Pending, Lactate Dehydrogenase Pending, CBC w Diff Pending, WBC Pending, RBC Pending, Hgb Pending, Hct Pending, MCV Pending, MCH Pending, RDW Pending, Plt Count Pending, MPV Pending, PUBS MCHC Pending Assessment/Plan Assessment: Mr Stanley is 47-year-old male with PMH of spinal stenosis on NSAIDs, was seen at the emergency department on 05/13/2017 after being sent in by reticle printer and oncologist Dr. Reagan due to anemia and low H&H found at the office of Dr. Reagan. Continue in inpatient # Idiopathic Symptomatic anemia, * Continue High Dose steroids 1.5 mg/kg. 180 mg daily. * IVIG 126 gm was started on 05/15/2017. Patient reported no active issues or adverse reaactions. It was thought that the patient may have developed a rash which might be attributed to the IVIG. However this rash is subsequently cleared over the course of the last few hours. Benefits and risks were weighed regarding an additional dose of IVIG to be administered today. Patient is willing to proceed with this therapy. IVIG 126 gm will therefore be infused today. * Folic Acid, 1 mg daily. * 2 units of PRBCs was transfused 05/14/2017 * H&H this a.m. 7.0/21.6. * Repeat CBC, LDH, reticulocyte count, total bilirubin in a.m. #Diffuse Rash in the setting of positive Lyme titers. * This morning the patient developed a rash on his left upper extremity and mid upper left back. Rash was nonraised nontender but erythematous and appeared to be ring in form. No pruritis expressed. Rash appears to have subsequently cleared. * Patient was started on doxycycline 100 mg twice a day for Lyme disease. #History of Blood Loss * Can have GI work up as an outpatient. * CBC daily. If acute signs of bleeding, inform GI Stat. # Hx of spinal stenosis * Keep off NSAID in the setting of ABLA. Patient does have a history of long standing NSAID use, due to spinal stenosis. * Manage pain with morphine and Tylenol. Diet: Regular DVT ppx: ALPS Problem List: 1. Symptomatic anemia 2. Anemia Pain Ratin Pain Location: No Pain Pain Goal: Remain pain free Pain Plan: Tylenol PRN Tomorrow's Labs & Rationales: CBC BEP
--- NOTE | 2017-05-16 08:02 | PN- Student ---
Subjective Subjective: Pt was seen and examined at the bedside. He lying in bed and appeared comfortable. Pt reports that he feels a lot better this morning. Since receiving the IVIG last night he has noticed an improvement in his jaundice judging by his skin tone. He also has a lot more energy and is ready to walk around today. He says that he wants try a flight of stairs later today to guage his stamina. He notes that his urine has returned to being yellow but still notes some urinary urgency. He also reports a mild headache over the occiput but is otherwise feeling well. The pt later presented with multiple red ovoid lesions on his forearms and back. They were not painful or itchy and went away after a few minutes. Denies fever, lightheadedness, chest pain, palpitations, shortness of breath, nausea, abdmonial pain, or myalgias. Objective Objective: Intake & Output 05/16 0800 05/16 0000 05/15 1600 05/15 0800 05/15 0000 Intake Total 100 2650 900 220 900 Output Total 1100 500 Balance 100 1550 900 -280 900 Intake, Blood 2550 Product Intake, IV 0 100 Intake, Oral 100 0 900 220 900 Number 0 0 Bowel Movements Output, Urine 1100 500 Patient 280 lb Weight Weight Reported by Patient Measurement Method Current Medications Sig/Katey Start time Last Medication Dose Route Stop Time Status Admin Acetaminophen 650 MG .STK-MED ONE 05/15 1400 DC PO 05/15 1401 Acetaminophen 325 MG Q6P PRN 05/13 1715 AC 05/15 PO 1400 Calcium Carbonate 500 MG DAILY 05/15 1909 AC 05/15 PO 1927 Diphenhydramine HCl 25 MG ONCE PRN 05/15 1330 AC IV Doxycycline Hyclate 100 MG BID 05/16 1009 AC 05/16 PO 1230 Folic Acid 1 MG DAILY 05/14 1000 AC 05/16 PO 0946 Immune Globulin 126 GM DAILY 05/17 1000 UNVr Water 2,100 ML IV Immune Globulin 126 GM ONE ONE 05/16 0845 CAN IV 05/16 0846 Immune Globulin 126 GM DAILY 05/15 1200 DC 05/15 Water 2,100 ML IV 1401 Methylprednisolone 40 MG .STK-MED ONE 05/15 1400 DC IM 05/15 1401 Morphine Sulfate 1 MG Q4 PRN 05/13 1545 AC IV Prednisone 180 MG DAILY 05/14 1000 AC 05/16 PO 0947 Vital Signs Date Time Temp Pulse Resp B/P B/P Pulse O2 O2 Flow FiO2 Mean Ox Delivery Rate 05/16 0717 99.0 88 20 128/72 97 Room Air 05/15 2343 98.1 86 20 114/72 95 Room Air 05/15 2221 98.4 87 18 123/63 97 05/15 2043 98.3 86 18 149/84 98 Room Air 05/15 1945 98.0 84 18 138/76 98 Room Air 05/15 1855 98.9 86 18 161/92 99 Room Air 05/15 1745 98.3 94 18 160/82 97 Room Air 05/15 1645 99.0 89 16 149/80 99 Room Air 05/15 1615 99.0 90 16 138/75 98 Room Air 05/15 1545 97.2 93 18 113/69 97 Room Air 05/15 1530 97.2 97 18 122/66 97 Room Air 05/15 1515 98.9 97 19 123/72 98 Room Air 05/15 1500 99.1 102 19 119/70 97 Room Air 05/15 1415 99.0 100 18 131/70 98 Room Air Physical Exam General: diaphoretic, NAD, no jaundice Head: NCAT Neck: supple, no carotid bruits Cardio: normal s1s2, no mrg, rrr Pulm: cta bl, normal chest expansion GI: no ttp, rebound, or guarding Extremities: red ovoid lesions on forearms and back, no edema, 1+ DP/PT Results Results: Laboratory Tests 05/16/17 0636: Anion Gap 11, Estimated GFR > 60, BUN/Creatinine Ratio 25.7 H, Glucose 103 H, Total Bilirubin 1.1, Lactate Dehydrogenase 630 H, CBC w Diff MAN DIFF ORDERED, RBC 2.12 L, MCV 101.8 H, MCH 33.1 H, RDW 20.9 H, MPV 7.5, Gran % 91.2 H, Lymphocytes % 5.4 L, Monocytes % 2.5, Eosinophils % 0.8, Basophils % 0.1, Absolute Granulocytes 5.8, Segmented Neutrophils 83 H, Band Neutrophils 4, Absolute Lymphocytes 0.3 L, Lymphocytes 6 L, Monocytes 4, Absolute Monocytes 0.2, Eosinophils 1, Absolute Eosinophils 0.1, Absolute Basophils 0, Metamyelocytes 2 H, Platelet Estimate ADEQUATE, Polychromasia 2+, Hypochromic- Microcytic 2+, Poikilocytosis 2+, Anisocytosis 1+, Macrocytic Cells 1+, PUBS MCHC 32.5 L, Retic Count 19.98 H 05/15/17 0620: Lactate Dehydrogenase 693 H, CBC w Diff MAN DIFF ORDERED, RBC 1.69 L, MCV 102.9 H, MCH 33.9 H, RDW 21.1 H, MPV 7.6, Gran % 89.4 H, Lymphocytes % 6.2 L, Monocytes % 3.6, Eosinophils % 0.6, Basophils % 0.2, Absolute Granulocytes 5.8, Segmented Neutrophils 87 H, Band Neutrophils 3, Absolute Lymphocytes 0.4 L, Lymphocytes 7 L, Monocytes 2, Absolute Monocytes 0.2, Absolute Eosinophils 0 , Absolute Basophils 0, Metamyelocytes 1, Nucleated RBCs 2 H, Platelet Estimate VERIFIED BY SMEAR, Polychromasia 2+, Poikilocytosis 1+, Basophilic Stippling 1+, Anisocytosis 2+, Macrocytic Cells 1+, PUBS MCHC 33.0, Retic Count 19.79 H Assessment/Plan Assessment: Pt is a 47 yo white male recently diagnosed with autoimmune hemolytic anemia being managed with prednisone and folic acid who presented with jaundice and easy fatigueability and a low H&H on labs. Yesterday he recieved IVIG and Hgb came back as 7.0. He presented with multiple red ovoid rashes on his forearms and back for a short period of time this morning which is most likely a reaction to the IVIG. His second dose will be held for now. Plan: #1 autoimmune hemolytic anemia -continue prednisone and folic acid -repeat H&H tomorrow -hold IVIG -hematology f/u as outpt #2 splenomegaly spleen was enlarged on abd ct -avoid contact sports for now #3 back pain -motrin and tylenol prn
--- NOTE | 2017-05-16 08:15 | PN- Hematology ---
Subjective Subjective: He received IVIg and 1 unit of pRBC overnight. He feels better this morning. His palpitation has improved. He has no fever or chills. Breathing is good. He has no abdominal pain. Review of Systems: Constitutional: Denies: chills, fever. Cardiovascular: Denies: chest pain. palpitation. Respiratory: Denies: short of breath. Gastrointestinal: Denies: abdominal pain. All Other Systems: Reviewed and Negative Objective Vital Signs and I&Os Vital Signs Date Time Temp Pulse Resp B/P B/P Pulse O2 O2 Flow FiO2 Mean Ox Delivery Rate 05/16 0717 99.0 88 20 128/72 97 Room Air 05/15 2343 98.1 86 20 114/72 95 Room Air 05/15 2221 98.4 87 18 123/63 97 05/15 2043 98.3 86 18 149/84 98 Room Air 05/15 1945 98.0 84 18 138/76 98 Room Air 05/15 1855 98.9 86 18 161/92 99 Room Air 05/15 1812 98.3 05/15 1745 98.3 94 18 160/82 97 Room Air 05/15 1645 99.0 89 16 149/80 99 Room Air 05/15 1615 99.0 90 16 138/75 98 Room Air 05/15 1545 97.2 93 18 113/69 97 Room Air 05/15 1530 97.2 97 18 122/66 97 Room Air 05/15 1515 98.9 97 19 123/72 98 Room Air 05/15 1500 99.1 102 19 119/70 97 Room Air 05/15 1445 99.0 100 18 122/72 05/15 1430 98.6 101 19 121/69 05/15 1415 99.0 100 18 131/70 98 Room Air 05/15 1400 98.6 104 133/70 05/15 1345 98.5 92 18 134/72 98 Room Air Intake & Output 05/16 1600 05/16 0800 05/16 0000 05/15 1600 05/15 0800 05/15 0000 Intake Total 2650 900 220 900 Output Total 1100 500 Balance 1550 900 -280 900 Intake, Blood 2550 Product Intake, IV 100 Intake, Oral 0 900 220 900 Number 0 Bowel Movements Output, Urine 1100 500 Patient 127.006 kg Weight Weight Reported by Patient Measurement Method Physical Exam: General Appearance: well developed/nourished, no apparent distress, alert, awake , comfortable Head: normal appearance, sclera mildly icteric Ears, Nose, Throat: normal pharynx Respiratory: normal breath sounds, chest non-tender, no respiratory distress Cardiovascular: tachycardia Abdomen: normal bowel sounds, soft, non-tender Extremities: no edema Current Medications: Current Medications Sig/Katey Start time Last Medication Dose Route Stop Time Status Admin Acetaminophen 650 MG .STK-MED ONE 05/15 1400 DC PO 05/15 1401 Acetaminophen 325 MG Q6P PRN 05/13 1715 AC 05/15 PO 1400 Calcium Carbonate 500 MG DAILY 05/15 1909 AC 05/15 PO 1927 Diphenhydramine HCl 25 MG ONCE PRN 05/15 1330 AC IV Folic Acid 1 MG DAILY 05/14 1000 AC 05/15 PO 1005 Immune Globulin 126 GM DAILY 05/15 1200 AC 05/15 Water 2,100 ML IV 1401 Immune Globulin 126 GM ONE ONE 05/15 1130 DC 05/15 Water 2,100 ML IV 05/15 1131 1718 Immune Globulin 127 GM ONE ONE 05/15 1115 CAN IV 05/15 1116 Methylprednisolone 40 MG .STK-MED ONE 05/15 1400 DC IM 05/15 1401 Morphine Sulfate 1 MG Q4 PRN 05/13 1545 AC IV Prednisone 180 MG DAILY 05/14 1000 AC 05/15 PO 1005 Results Last 24 Hours of Lab Results: Laboratory Tests 05/16 0636 Chemistry Sodium Pending Potassium Pending Chloride Pending Carbon Dioxide Pending Anion Gap Pending BUN Pending Creatinine Pending BUN/Creatinine Ratio Pending Glucose Pending Lactate Dehydrogenase Pending Hematology CBC w Diff Pending WBC Pending RBC Pending Hgb Pending Hct Pending MCV Pending MCH Pending RDW Pending Plt Count Pending MPV Pending PUBS MCHC Pending Assessment/Plan Assessment/Recommendations: Mr. Stanley is a 47-year-old male without significant past history who was recently diagnosed with autoimmune hemolytic anemia who presents with worsening symptomatic anemia. Blood bank had a little difficulty with matching his blood. He will get least incompatible blood due to difficulty with complete matching for his AIHA. He received 2 units of pRBC on admission with only slight improvement in his hemoglobin/hematocrit. LDH did improve. He received IVIg 1 gm/kg/day yesterday and 1 unit of pRBC. CBC is pending today. He will continue on prednisone 1.5 mg/kg. He will continue on folic acid 1 mg daily. He should get another dose of IVIg 1 gm/kg/day today. He may need upto 5 days of therapy. He will have to continue hemolysis lab daily. 1. Continue prednisone 1.5 mg/kg daily 2. Continue folic acid 1 mg daily 3. Continue with IVIg 1 gm/kg/day today 4. Monitor bilirubin, LDH, reticulocytes, and CBC daily Please call [phone] with any questions. Problem List: 1. Hemolytic anemia 2. Symptomatic anemia
[2017-05-16 09:26] LABS: ABSOLUTE BASOPHIL COUNT 0 /CUMM (0.0-0.2); ABSOLUTE EOSINOPHIL COUNT 0.1 /CUMM (0.0-0.7); ABSOLUTE GRANULOCYTE CT 5.8 /CUMM (1.4-6.5); ABSOLUTE LYMPH COUNT 0.3 /CUMM (1.2-3.4); ABSOLUTE MONOCYTE COUNT 0.2 /CUMM (0.10-0.60); BASOPHIL % 0.1 % (0.0-2.0); EOSINOPHIL % 0.8 % (0-5); GRANULOCYTE % 91.2 % (42.2-75.2); HEMATOCRIT 21.6 % (42-52); MEAN CORPUSCULAR HGB 33.1 PG (27.0-31.0); MEAN CORPUSCULAR HGB CONC 32.5 G/DL (33.0-37.0); MEAN CORPUSCULAR VOLUME 101.8 FL (80.0-94.0); MEAN PLATELET VOLUME 7.5 FL (7.4-10.4); PLATELET COUNT 245 /CUMM (130-400); RBC DISTRIBUTION WIDTH 20.9 % (11.5-14.5); WHITE BLOOD CELL COUNT 6.3 /CUMM (4.8-10.8)
[2017-05-16 09:30] LABS: RED BLOOD CELL CT 2.12 /CUMM (4.70-6.10)
--- NOTE | 2017-05-16 09:41 | NUR ---
CALLED INTO PATIENT'S ROOM BY DR FALCON; RED RASH NOTED TO L FOREARM WITH A BULLSEYE APPEARANCE; ALSO, RED ROUND PATCHES NOTED TO BACK; PATIENT STATES "THESE WERE NOT HERE EVEN 20 MINUTES AGO, THEY JUST STARTED POPPING UP"; DR FRITZ NOTIFIED AND IN ROOM TO ASSESS PATIENT; PATIENT HAS NO COMPLAINTS OF ITCHING OR DIFFICULTY BREATHING AT THIS TIME; AWAITING FURHTER ORDERS FROM DR FRITZ; CALL JORDAN AND NEEDS WITHIN REACH; SAFETY MAINTAINED;
--- NOTE | 2017-05-16 16:29 | NUR ---
IVIG WAS STARTED AT 1545. PTS VITALS ARE STABLE AT TIHIS TIME.
--- NOTE | 2017-05-16 17:56 | NUR ---
PT VITALS ARE STABLE AND NO SIGNS OF TRANSFUSSION REACTION. IVIG IS AT GOAL RATE AT 381ML PER HOUR.
--- NOTE | 2017-05-16 19:03 | NUR ---
PT IS RELAXING IN BED. DENIES ANY PAIN OR DISTRESS. NO SIGNS OF TRANSFUSSION REACTION FROM IVIG AT THIS TIME. WE WILL CONTINUE TO MONITOR.
--- NOTE | 2017-05-16 22:49 | NUR ---
IVIG HAS FINISHED INFUSSING AT THIS TIME. VITAL SIGNS ARE STABLE. IV HAS BEEN FLUSHED. PT SHOWS NO SIGNS OF INFUSSION REACTION.
--- NOTE | 2017-05-16 22:57 | NUR ---
AFTER INFUSSION COMPLETE PT DEVELOPED RED RASH ON CHEST STOMACH AND BACK. BENADRYLL GIVEN AND WE ARE ALERTING THE DOCTOR AT THIS TIME.
--- NOTE | 2017-05-16 23:05 | NUR ---
NURSING NOTE; AFTER IVIG COMPLETE, PT NOTED TO HAVE RED RASH ON BACK, CHEST, FACE AND LEGS, IV BENADRYL GIVEN, SUPERVISOR P[employer]ODU[employer] IMGE CALLED AND UP TO FLOOR TO ASSESS PT, PT DENIES CP AND DENIES SOB, VSS, DENIES PAIN, PT STATES, "I DO NOT FEEL ANY ITCHING OR DISCOMFORT", PER SUPERVISOR P[employer] IMGE SHE WILL BE UP TO FLOOR TO ASSESS PT EVERY HOUR, ONCOMING RN AWARE OF RASHES AND AWARE OF PLAN OF CARE, SAFETY MAINTAINED, NEEDS WITHIN REACH
--- NOTE | 2017-05-17 00:18 | NUR ---
NURSING NOTE: PT RASH CONTAINED TO BACK, CHEST, FACE, AND LEGS AND HAS NOT SPREAD OR CHANGED SINCE THE LAST HOUR WE CHECKED. MANE KUMAR CAME UP TO ASSESS PT. PT DENIES PAIN, SOB, ITCHING, AND STATES "I FEEL FINE". WILL CONTINUE TO CHECK PT HOURLY. WILL CONTINUE TO MONITOR.
--- NOTE | 2017-05-17 01:24 | NUR ---
NURSING NOTE: PT'S RASH IS SLIGHTLY IMPROVING SINCE O118 WHEN HE WAS LAST ASSESSED. PT STILL OFFERS NO COMPLAINTS. WILL RECHECK PTS RASH IN ONE HOUR AND REEVALUATE. WILL CONTINUE TO MONITOR.
--- NOTE | 2017-05-17 02:27 | NUR ---
NURSING NOTE: PTS RASH CONTINUING TO IMPROVE SINCE LAST CHECK AND IMMARISABEL MD STILL IS COMING UP HOURLY TO ASSESS PT. PER IMMARISABEL MD WE CAN CHECK PTS RASH IN MORNING AND NO LONGER DO HOURLY CHECKS TO ALLOW PT TO SLEEP. PT OFFERING NO COMPLAINTS AT THIS TIME. WILL CONTINUE TO MONITOR AND RECHECK RASH IN MORNING PER MD ORDER. .
--- NOTE | 2017-05-17 06:03 | NUR ---
NURSING NOTE: SHERITA EVENING SUPERVISOR [employer]ACIT[employer] PROCESSING NOTIFIED THIS RN THAT WHILE HE WAS SITTING AND MONTITORING PT DURING IVIG INFUSION THAT THE PT BEGAN TO START HAVING A RASH AFTER HE WAS GIVEN VIBRAMYCIN/DOXYCYCLINE ABX. THIS RN NOTIFIED MANE KUMAR AND MADE HER AWARE OF POSSIBLE CAUSE OF PTS RASH. MANE KUMAR COMING UP TO ASSESS PT. WILL CONTINUE TO MONITOR.
--- NOTE | 2017-05-17 06:23 | PN- Housestaff ---
CATRINA KUMAR,[facility] 05/17/17 0622: Subjective Follow-up For: Autoimmune Symptomatic Anemia Subjective: Mr. Stanley was seen and examined this morning. Resting comfortably in bed. He was concerned about his reaction which he developed yesterday after the IVIG infusion. Patient states that he developed a worsening erythematous rash which he had incidentally developed over the course of the morning which subsequently resolved. He endorses a mild headache. Patient complain of generalized soreness. He states that he feels like he has been immobile for a long time. Denies any fever, chills, nausea, vomiting. Tolerating by mouth intake well. Review of Systems Constitutional: Reports: see HPI. Objective Last 24 Hrs of Vital Signs/I&O Vital Signs Date Time Temp Pulse Resp B/P B/P Pulse O2 O2 Flow FiO2 Mean Ox Delivery Rate 05/17 0652 100.8 112 20 110/68 96 Room Air 05/16 2248 98.0 90 18 122/72 98 Room Air 05/16 2145 98.9 94 18 116/66 98 Room Air / 2045 99.0 94 18 120/68 98 Room Air / 1945 97.9 92 16 112/71 98 Room Air / 1915 98.0 94 18 127/68 98 Room Air / 1845 98.2 100 18 144/80 98 Nasal Cannula 05/16 1815 98.0 90 16 134/84 98 Room Air / 1745 98.1 94 18 128/80 98 Room Air / 1730 98.3 94 16 137/79 98 Room Air / 1715 98.2 92 18 124/72 98 Room Air / 1700 98.3 102 18 126/72 98 Room Air / 1645 98.0 100 18 126/73 98 Room Air / 1630 98.3 100 16 138/68 97 Room Air / 1615 98.9 99 18 140/70 98 Room Air 05/16 1600 99.6 100 20 121/80 98 Room Air / 1545 98.9 85 18 135/70 99 Room Air / 1530 98.9 94 18 132/73 98 Room Air 05/16 1429 98.3 98 20 138/70 97 Room Air Intake & Output 05/17 1600 05/17 0800 06/16 0000 Intake Total 3100 Output Total 2000 Balance 1100 Intake, IV 2100 Intake, Oral 1000 Output, Urine 2000 Physical Exam General Appearance: Alert, Oriented X3, Cooperative Cardiovascular: Regular Rate, Normal S1, Normal S2 Lungs: Clear to Auscultation Abdomen: Normal Bowel Sounds, Soft, No Tenderness Neurological: Normal Speech, Strength at 5/5 X4 Ext Extremities: Left forearm rash. Back rash present on left. Flat, non pruritic, non painful, no hives present. Vascular: Normal Pulses Current Medications: Current Medications Sig/Katey Start time Last Medication Dose Route Stop Time Status Admin Acetaminophen 325 MG Q6P PRN 05/13 1715 AC 05/17 PO 0656 Calcium Carbonate 500 MG DAILY 05/15 1909 AC 05/15 PO 1927 Diphenhydramine HCl 25 MG Q6P PRN 05/17 0800 AC PO Diphenhydramine HCl 25 MG ONCE PRN 05/15 1330 AC 05/16 IV 2256 Doxycycline Hyclate 100 MG BID 05/16 1009 AC 05/16 PO 2210 Famotidine 20 MG DAILY 05/17 1000 AC PO Folic Acid 1 MG DAILY 05/14 1000 AC 05/16 PO 0946 Immune Globulin 126 GM 1500 05/16 1500 AC 05/16 Water 2,100 ML IV 1545 Immune Globulin 126 GM ONE ONE 05/16 0845 CAN IV 05/16 0846 Immune Globulin 126 GM DAILY 05/15 1200 DC 05/15 Water 2,100 ML IV 1401 Morphine Sulfate 1 MG Q4 PRN 05/13 1545 AC IV Patient Medication 1 ED .STK-MED ONE 05/16 1411 UT Teaching ED 05/16 1412 Prednisone 180 MG DAILY 05/14 1000 AC 05/16 PO 0947 Last 24 Hrs of Lab/Vinh Results Last 24 Hrs of Labs/Mics: Laboratory Tests 05/17/17 0635: Anion Gap 9, Estimated GFR > 60, BUN/Creatinine Ratio 20.0, Total Bilirubin 0.7, Lactate Dehydrogenase 526, CBC w Diff Pending, WBC Pending, RBC Pending, Hgb Pending, Hct Pending, MCV Pending, MCH Pending, RDW Pending, Plt Count Pending, MPV Pending, PUBS MCHC Pending, Retic Count Pending Assessment/Plan Assessment: Mr Stanley is 47-year-old male with PMH of spinal stenosis on NSAIDs, was seen at the emergency department on 05/13/2017 after being sent in by security systems installer and oncologist Dr. Reagan due to anemia and low H&H found at the office of Dr. Reagan. Continue in inpatient # Idiopathic Symptomatic anemia, * Continue High Dose steroids 1.5 mg/kg. 180 mg daily. * Hold on IVIG infusion today. Patient did develop a low-grade fever and urticarial rash. Likely secondary to IVIG. We'll continue to closely monitor especially respiratory issues. * Folic Acid, 1 mg daily. * H&H this a.m. 7.6/23.3. * LDH 526, reticulocyte count 18.89. * Repeat CBC, LDH, reticulocyte count, total bilirubin in a.m. #Diffuse Rash in the setting of positive Lyme titers. * This morning the patient developed a rash on his left upper extremity and mid upper left back. Rash was nonraised nontender but erythematous and appeared to be ring in form. No pruritis expressed. Rash appears to have subsequently cleared. * Patient was started on doxycycline 100 mg twice a day for Lyme disease. * Continue doxycycline 100 mg twice a day. Will require 2 weeks-3weeks of antibiotic treatment. #Urticaria * Likely manifestation of IVIG treatment. Famotidine 20 mg by mouth and diphenhydramine 25 mg every 6 when necessary ordered today. Will continue to monitor. #History of Blood Loss * Can have GI work up as an outpatient. * CBC daily. If acute signs of bleeding, inform GI Stat. # Hx of spinal stenosis * Keep off NSAID in the setting of ABLA. Patient does have a history of long standing NSAID use, due to spinal stenosis. * Manage pain with morphine and Tylenol. Diet: Regular DVT ppx: ALPS Problem List: 1. Symptomatic anemia 2. GI bleed 3. Hemolytic anemia 4. Anemia 5. Urticaria as manifestation of blood transfusion reaction Pain Ratin Pain Location: Headache Pain Goal: Remain pain free Pain Plan: Tylenol PRN Tomorrow's Labs & Rationales: CBC: Monitor H/H BEP: Monitor Electrolytes LDH: Due to AIHA Reticulocyt count Due to AIHA Bilirubin Due to AIHA ROSARIO EPRERA MD 05/17/17 1435: Attending MD Review Statement Attending Statement Attending MD Statement: examined this patient, discuss w/resident/PA/CALENDER WORKER HELPER, agreed w/resident/PA/CALENDER WORKER HELPER, reviewed EMR data (avail) Attending Assessment/Plan: 47M PMH spinal stenosis, recently discharged after admission for symptomatic anemia and 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 Patient had responded well to Prednisone on prior admission, but on discharge, follow up CBC continued to have dropping Hgb, 5.8 initially on current admission. Patient underwent his second day of IVIg yesterday, had a rash and mild fever afterward. Today he feels better, but a bit fatigued. Hgb improved to 7.6, lab signs of hemolysis have improved. 1. C3 autoimmune hemolytic anemia 2. Symptomatic anemia Plan - Continue on general medicine - Hematology consult - ALPS for DVT PPx - Continue increased Prednisone - No further IVIg for now - Recheck CBC and CMP tomorrow morning
[2017-05-17 06:52] VITALS: BP 110/68
[2017-05-17 07:52] LABS: ABSOLUTE BASOPHIL COUNT 0 /CUMM (0.0-0.2); ABSOLUTE EOSINOPHIL COUNT 0 /CUMM (0.0-0.7); ABSOLUTE GRANULOCYTE CT 7.9 /CUMM (1.4-6.5); ABSOLUTE LYMPH COUNT 0.2 /CUMM (1.2-3.4); ABSOLUTE MONOCYTE COUNT 0.1 /CUMM (0.10-0.60); BASOPHIL % 0 % (0.0-2.0); EOSINOPHIL % 0.6 % (0-5); HEMATOCRIT 23.3 % (42-52); MEAN CORPUSCULAR HGB 32.9 PG (27.0-31.0); MEAN CORPUSCULAR HGB CONC 32.7 G/DL (33.0-37.0); MEAN CORPUSCULAR VOLUME 100.8 FL (80.0-94.0); MEAN PLATELET VOLUME 7.4 FL (7.4-10.4); PLATELET COUNT 278 /CUMM (130-400); RBC DISTRIBUTION WIDTH 19.3 % (11.5-14.5); RED BLOOD CELL CT 2.31 /CUMM (4.70-6.10); WHITE BLOOD CELL COUNT 8.2 /CUMM (4.8-10.8)
--- NOTE | 2017-05-17 08:16 | PN- Student ---
Subjective Subjective: Pt was seen and examined at the bedside. He was pleasant as usual and appeared comfortable. Pt recieved another dose of IVIG last night. After the infusion it was noted that the pt had large red lesions all over his body similar to yesterday but more widespread. He was subsequently given a dose of benadryl. Today the pt still reports a rash this morning but much less in severity. He denies any pain or itchiness associated with the rash. He is otherwise feeling good. He has a mild headache and mild myalgias but he believes this is because he has been lying in bed all day. Today he will attempt to walk up a flight of stairs and resume activity. Denies fever, chills, palpitations, chest pain, shortness of breath, abdominal pain, nausea, or pruritis. Objective Objective: Intake & Output 05/17 0000 05/16 1600 05/16 0800 05/16 0000 Intake Total 3100 172 111 1903 Output Total 2000 1100 Balance 1100 801 048 8228 Intake, Blood 2550 Product Intake, IV 2100 0 0 100 Intake, Oral 1000 600 100 0 Number 0 0 Bowel Movements Output, Urine 2000 1100 Patient 280 lb Weight Weight Reported by Patient Measurement Method Vital Signs Date Time Temp Pulse Resp B/P B/P Pulse O2 O2 Flow FiO2 Mean Ox Delivery Rate 05/17 0652 100.8 112 20 110/68 96 Room Air 05/16 2248 98.0 90 18 122/72 98 Room Air 05/16 2145 98.9 94 18 116/66 98 Room Air 05/16 2045 99.0 94 18 120/68 98 Room Air 05/16 1945 97.9 92 16 112/71 98 Room Air 05/16 1915 98.0 94 18 127/68 98 Room Air 05/16 1845 98.2 100 18 144/80 98 Nasal Cannula 05/16 1815 98.0 90 16 134/84 98 Room Air 05/16 1745 98.1 94 18 128/80 98 Room Air 05/16 1730 98.3 94 16 137/79 98 Room Air 05/16 1715 98.2 92 18 124/72 98 Room Air 05/16 1700 98.3 102 18 126/72 98 Room Air 05/16 1645 98.0 100 18 126/73 98 Room Air 05/16 1630 98.3 100 16 138/68 97 Room Air 05/16 1615 98.9 99 18 140/70 98 Room Air 05/16 1600 99.6 100 20 121/80 98 Room Air 05/16 1545 98.9 85 18 135/70 99 Room Air 05/16 1530 98.9 94 18 132/73 98 Room Air 05/16 1429 98.3 98 20 138/70 97 Room Air Current Medications Sig/Katey Start time Last Medication Dose Route Stop Time Status Admin Acetaminophen 325 MG Q6P PRN 05/13 1715 AC 05/17 PO 0656 Calcium Carbonate 500 MG DAILY 05/15 1909 AC 05/15 PO 1927 Diphenhydramine HCl 25 MG Q6P PRN 05/17 0800 UNVr PO Diphenhydramine HCl 25 MG ONCE PRN 05/15 1330 AC 05/16 IV 2256 Doxycycline Hyclate 100 MG BID 05/16 1009 AC 05/16 PO 2210 Famotidine 20 MG DAILY 05/17 1000 UNVr PO Folic Acid 1 MG DAILY 05/14 1000 AC 05/16 PO 0946 Immune Globulin 126 GM 1500 05/16 1500 AC 05/16 Water 2,100 ML IV 1545 Immune Globulin 126 GM ONE ONE 05/16 0845 CAN IV 05/16 0846 Morphine Sulfate 1 MG Q4 PRN 05/13 1545 AC IV Prednisone 180 MG DAILY 05/14 1000 AC 05/16 PO 0947 Physical Exam General: Well-appearing, NAD Head: NCAT Neck: supple, no goiter Cardiac: tachycardic, normal s1s2, no mrg, rrr Pulm: cta bl, normal chest expansion GI: no ttp, no guarding, no rebound Skin: widespread red ovoid lesions across the trunk, extremities, and head, non- raised, non-pruritic, non-erupting Extremities: Bruising on the anterior lower legs, no edema, brisk peripheral pulses Results Results: Laboratory Tests 05/17/17 0635: Anion Gap 9, Estimated GFR > 60, BUN/Creatinine Ratio 20.0, Total Bilirubin 0.7, Lactate Dehydrogenase 526, CBC w Diff NO MAN DIFF REQ, RBC 2.31 L, MCV 100.8 H , MCH 32.9 H, RDW 19.3 H, MPV 7.4, Gran % 96.1 H, Lymphocytes % 2.6 L, Monocytes % 0.7 L, Eosinophils % 0.6, Basophils % 0 L, Absolute Granulocytes 7.9 H, Absolute Lymphocytes 0.2 L, Absolute Monocytes 0.1 L, Absolute Eosinophils 0, Absolute Basophils 0, PUBS MCHC 32.7 L, Retic Count 18.89 H 05/16/17 0636: Anion Gap 11, Estimated GFR > 60, BUN/Creatinine Ratio 25.7 H, Glucose 103 H, Total Bilirubin 1.1, Lactate Dehydrogenase 630 H, CBC w Diff MAN DIFF ORDERED, RBC 2.12 L, MCV 101.8 H, MCH 33.1 H, RDW 20.9 H, MPV 7.5, Gran % 91.2 H, Lymphocytes % 5.4 L, Monocytes % 2.5, Eosinophils % 0.8, Basophils % 0.1, Absolute Granulocytes 5.8, Segmented Neutrophils 83 H, Band Neutrophils 4, Absolute Lymphocytes 0.3 L, Lymphocytes 6 L, Monocytes 4, Absolute Monocytes 0.2, Eosinophils 1, Absolute Eosinophils 0.1, Absolute Basophils 0, Metamyelocytes 2 H, Platelet Estimate ADEQUATE, Polychromasia 2+, Hypochromic- Microcytic 2+, Poikilocytosis 2+, Anisocytosis 1+, Macrocytic Cells 1+, PUBS MCHC 32.5 L, Retic Count 19.98 H Assessment/Plan Assessment: Pt is a 47 yo white male recently diagnosed with autoimmune hemolytic anemia being managed with prednisone and folic acid who presented with jaundice and easy fatigueability and a low H&H on labs. Pt recieved another dose of IVIG last night and had another dermatologic reaction at the completion of the infusion. His Hgb today is 7.6 and his Hct is 23.3. Plan: #1 autoimmune hemolytic anemia -continue prednisone and folic acid -hold further IVIG considering the pt's rash -pRBC transfusion -hematology f/u as outpt #2 skin reaction Large red ovoid lesions all over the trunk, extremities, and head. Lesions are warm but non-raised, non-pruritic, and non-erupting. -hold further IVIG -start pepsid -antihistamines prn #3 splenomegaly spleen was enlarged on abd ct -avoid contact sports for now #4 back pain -motrin and tylenol prn Large red ovoid lesions all over the trunk, extremities, and head. Lesions are warm but non-raised, non-pruritic, and non-erupting. -hold further IVIG -start pepsid -antihistamines prn #3 splenomegaly spleen was enlarged on abd ct -avoid contact sports for now #4 back pain -motrin and tylenol prn
[2017-05-17 08:54] LABS: GRANULOCYTE % 96.1 % (42.2-75.2)
--- NOTE | 2017-05-17 09:46 | PN- Hematology ---
Subjective Subjective: He has a rash yesterday morning and improved during the day. He was given IVIg again yesterday afternoon. He developed another rash overnight. Rash is not itchy. He does not have any respiratory complaints. His voice is stable. He has no new pain. He feels generally well. He has no nausea or vomiting. He has no diarrhea. He had a low grade temperature this morning. Review of Systems Constitutional: Denies: chills, fever. Cardiovascular: Denies: chest pain, palpitations. Gastrointestinal: Denies: abdominal pain. Musculoskeletal: Denies: back pain. Skin: Reports: erythema, rash. Denies: jaundice. Neurological/Psychological: Denies: no symptoms. Hematologic/Endocrine: Denies: bruising, bleeding. Immunologic/Allergic: Denies: lymphadenopathy. All Other Systems: Reviewed and Negative Objective Vital Signs and I&Os Vital Signs Date Time Temp Pulse Resp B/P B/P Pulse O2 O2 Flow FiO2 Mean Ox Delivery Rate 05/17 0828 100.1 05/17 0823 100.1 05/17 0652 100.8 112 20 110/68 96 Room Air 05/16 2248 98.0 90 18 122/72 98 Room Air / 2145 98.9 94 18 116/66 98 Room Air / 2045 99.0 94 18 120/68 98 Room Air / 1945 97.9 92 16 112/71 98 Room Air / 1915 98.0 94 18 127/68 98 Room Air / 1845 98.2 100 18 144/80 98 Nasal Cannula 05/16 1815 98.0 90 16 134/84 98 Room Air / 1745 98.1 94 18 128/80 98 Room Air /15 1730 98.3 94 16 137/79 98 Room Air /15 1715 98.2 92 18 124/72 98 Room Air /15 1700 98.3 102 18 126/72 98 Room Air /15 1645 98.0 100 18 126/73 98 Room Air /15 1630 98.3 100 16 138/68 97 Room Air 06/15 1615 98.9 99 18 140/70 98 Room Air 06/15 1600 99.6 100 20 121/80 98 Room Air 06/15 1545 98.9 85 18 135/70 99 Room Air /15 1530 98.9 94 18 132/73 98 Room Air 05/16 1429 98.3 98 20 138/70 97 Room Air Intake & Output 05/17 1600 05/17 0800 05/17 0000 05/16 1600 05/16 0800 05/16 0000 Intake Total 3100 383 186 0915 Output Total 1999 1100 Balance 1100 628 276 0985 Intake, Blood 2550 Product Intake, IV 2100 0 0 100 Intake, Oral 1000 600 100 0 Number 0 0 Bowel Movements Output, Urine 1999 1100 Patient 127.006 kg Weight Weight Reported by Patient Measurement Method Physical Exam General Appearance: well developed/nourished, no apparent distress, alert, awake , comfortable Head: atraumatic Ears, Nose, Throat: normal pharynx Respiratory: normal breath sounds, chest non-tender, no respiratory distress, lungs clear Cardiovascular: tachycardia Abdomen: normal bowel sounds, soft, non-tender Extremities: no edema Skin: rash (diffuse urticaria like rash) Current Medications: Current Medications Sig/Katey Start time Last Medication Dose Route Stop Time Status Admin Acetaminophen 325 MG Q6P PRN 05/13 1715 AC 05/17 PO 0656 Calcium Carbonate 500 MG DAILY 05/15 1909 AC 05/15 PO 1927 Diphenhydramine HCl 25 MG Q6P PRN 05/17 0800 AC PO Diphenhydramine HCl 25 MG ONCE PRN 05/15 1330 AC 05/16 IV 2256 Doxycycline Hyclate 100 MG BID 05/16 1009 AC 05/16 PO 2210 Famotidine 20 MG DAILY 05/17 1000 AC PO Folic Acid 1 MG DAILY 05/14 1000 AC 05/16 PO 0946 Immune Globulin 126 GM 1500 05/16 1500 AC 05/16 Water 2,100 ML IV 1545 Immune Globulin 126 GM DAILY 05/15 1200 DC 05/15 Water 2,100 ML IV 1401 Morphine Sulfate 1 MG Q4 PRN 05/13 1545 AC IV Patient Medication 1 ED .STK-MED ONE 05/16 1411 MT Teaching ED 05/16 1412 Prednisone 180 MG DAILY 05/14 1000 AC 05/16 PO 0947 Results Last 24 Hours of Lab Results: Laboratory Tests 05/17 0635 Chemistry Sodium (137 - 145 mmol/L) 133 L Potassium (3.5 - 5.1 mmol/L) 4.2 Chloride (98 - 107 mmol/L) 97 L Carbon Dioxide (22 - 30 mmol/L) 27 Anion Gap (5 - 16) 9 BUN (9 - 20 mg/dL) 20 Creatinine (0.7 - 1.2 mg/dL) 1.0 Estimated GFR (>60 ml/min) > 60 BUN/Creatinine Ratio (7 - 25 %) 20.0 Total Bilirubin (0.2 - 1.3 mg/dL) 0.7 Lactate Dehydrogenase (313 - 618 U/L) 526 Hematology CBC w Diff NO MAN DIFF REQ WBC (4.8 - 10.8 /CUMM) 8.2 RBC (4.70 - 6.10 /CUMM) 2.31 L Hgb (14.0 - 18.0 G/DL) 7.6 L Hct (42 - 52 %) 23.3 L MCV (80.0 - 94.0 FL) 100.8 H MCH (27.0 - 31.0 PG) 32.9 H RDW (11.5 - 14.5 %) 19.3 H Plt Count (130 - 400 /CUMM) 278 MPV (7.4 - 10.4 FL) 7.4 Gran % (42.2 - 75.2 %) 96.1 H Lymphocytes % (20.5 - 51.1 %) 2.6 L Monocytes % (1.7 - 9.3 %) 0.7 L Eosinophils % (0 - 5 %) 0.6 Basophils % (0.0 - 2.0 %) 0 L Absolute Granulocytes (1.4 - 6.5 /CUMM) 7.9 H Absolute Lymphocytes (1.2 - 3.4 /CUMM) 0.2 L Absolute Monocytes (0.10 - 0.60 /CUMM) 0.1 L Absolute Eosinophils (0.0 - 0.7 /CUMM) 0 Absolute Basophils (0.0 - 0.2 /CUMM) 0 PUBS MCHC (33.0 - 37.0 G/DL) 32.7 L Retic Count (0.5 - 2.0 %) 18.89 H Assessment/Plan Assessment/Recommendations: Mr. Stanley is a 47-year-old male without significant past history who was recently diagnosed with autoimmune hemolytic anemia who presents with worsening symptomatic anemia. Blood bank had a little difficulty with matching his blood. He will get least incompatible blood due to difficulty with complete matching for his AIHA. He received 2 units of pRBC on admission with only slight improvement in his hemoglobin/hematocrit. He has received 2 days of IVIg 1 gm/kg/day. He does have a low grade fever and urticarial rash. This is likely secondary to IVIg. He can be monitor closely for developing respiratory issues. He can use Bendaryl prn for itching or worsening urticaria. He can start on famotidine. He will continue on prednisone 1.5 mg/kg. CBC demonstrated improvement with hemoglobin of 7.6 g/dL today. LDH has normalized along with bilirubin. Reticulocytes continues to be increased but lower than prior. This demonstrates improvement in his AIHA. 1. Continue prednisone 1.5 mg/kg daily 2. Continue folic acid 1 mg daily 3. Benadryl prn and famotidine daily 4. No need for IVIg today 5. Monitor bilirubin, LDH, reticulocytes, and CBC daily 6. Monitor respirator status Please call [phone] with any questions. Problem List: 1. Symptomatic anemia 2. Hemolytic anemia
[2017-05-17] MEDS ORDERED: PREDNISONE20 M1 PO (14:33)
[2017-05-17 14:42] VITALS: BP 118/64
[2017-05-17] MEDS ORDERED: DOXYCYCLINE HY100 M4 PO (15:26)
[2017-05-17] MEDS ORDERED: DIPHENHYDRAMINE25 M4 PO (15:27)
[2017-05-17] MEDS ORDERED: FAMOTIDINE20 M1 PO (15:27)
--- NOTE | 2017-05-17 18:57 | NUR ---
PT STATES HE HAD A BM YESTERDAY AND HAS BEEN HAVING "ONE EVERY DAY SINCE HE'S BEEN HERE". HIS RASH IS NOW BARELY NOTICABLE. HE HAS BEEN AFEBRILE SINCE 1500. HE HAS PREVIOUSLY REFUSED FAMOTIDINE, BUT WAS TOLD BY MD TO TAKE IT SINCE HE'S TAKING LARGE AMT OF PREDNISONE. FAMOTIDINE GIVEN. WILL INFORM NIGHT RN.
[2017-05-17 23:15] VITALS: BP 123/76
--- NOTE | 2017-05-18 06:30 | PN- Housestaff ---
See Addendum Subjective Follow-up For: Idipathic Hemolytic Anemia Subjective: Mr Stanley was seen and examined this morning. Resting comfortably in bed. Patient states he feels fantastic this morning. He is eager to go home. He denies any fever, chills, nausea, vomiting. Denies any palpitations or lightheadedness. States that his headache has now resolved. Patient endorses no pruritus or any symptoms of his urticarial rash. Review of Systems Constitutional: Reports: see HPI. Objective Last 24 Hrs of Vital Signs/I&O Vital Signs Date Time Temp Pulse Resp B/P B/P Pulse O2 O2 Flow FiO2 Mean Ox Delivery Rate 05/17 2315 98.2 85 20 123/76 98 Room Air 05/17 1619 98.2 05/17 1442 99.2 105 20 118/64 98 Room Air 05/17 1040 99.3 05/17 0828 100.1 05/17 0823 100.1 05/17 0652 100.8 112 20 110/68 96 Room Air Intake & Output 05/18 0800 05/18 0000 05/17 1600 Intake Total 450 900 Output Total 300 Balance 150 900 Intake, Oral 450 900 Output, Urine 300 Physical Exam General Appearance: Alert, Oriented X3, Cooperative Skin: Rash, Diffuse Urticaria Like rash. Cardiovascular: Regular Rate, Normal S1, Normal S2 Lungs: Clear to Auscultation Abdomen: Normal Bowel Sounds, Soft, No Tenderness Neurological: Normal Gait, Normal Speech, Strength at 5/5 X4 Ext Extremities: No Clubbing, No Cyanosis, No Edema, Normal Pulses Vascular: Normal Pulses Assessment/Plan Assessment: Mr Stanley is 47-year-old male with PMH of spinal stenosis on NSAIDs, was seen at the emergency department on 05/13/2017 after being sent in by snow removing supervisor and oncologist Dr. Reagan due to anemia and low H&H found at the office of Dr. Reagan. # Idiopathic Symptomatic anemia, * Continue High Dose steroids 1.5 mg/kg. 180 mg daily. Continue Famotidine 20 mg by mouth, for GI prophylaxis. * Hold on IVIG infusion today. Patient did urticarial rash. Likely secondary to IVIG. We'll continue to closely monitor especially respiratory issues. * Folic Acid, 1 mg daily. * H&H this a.m. 7.5/22.9. * LDH 474, reticulocyte count 14.16. * Patient stable for discharge, See event Note. #Diffuse Rash in the setting of positive Lyme titers. * This morning the patient developed a rash on his left upper extremity and mid upper left back. Rash was nonraised nontender but erythematous and appeared to be ring in form. No pruritis expressed. Rash appears to have subsequently cleared. * Patient was started on doxycycline 100 mg twice a day for Lyme disease. * Continue doxycycline 100 mg twice a day. Will require 10 days of antibiotic treatment. #Urticaria * Likely manifestation of IVIG treatment. Diphenhydramine 25 mg every 6 when necessary ordered today. . #History of Blood Loss * Can have GI work up as an outpatient. * CBC daily. If acute signs of bleeding, inform GI Stat. # Hx of spinal stenosis * Keep off NSAID in the setting of ABLA. Patient does have a history of long standing NSAID use, due to spinal stenosis. * Manage pain with morphine and Tylenol. Diet: Regular DVT ppx: ALPS Problem List: 1. Urticaria as manifestation of blood transfusion reaction 2. Anemia 3. Hemolytic anemia 4. GI bleed 5. Symptomatic anemia Pain Ratin Pain Location: No Pain Pain Goal: Remain pain free Pain Plan: NA Tomorrow's Labs & Rationales: No Labs
[2017-05-18 07:00] VITALS: BP 113/62
[2017-05-18 07:55] LABS: ABSOLUTE BASOPHIL COUNT 0 /CUMM (0.0-0.2); ABSOLUTE EOSINOPHIL COUNT 0 /CUMM (0.0-0.7); ABSOLUTE GRANULOCYTE CT 3.4 /CUMM (1.4-6.5); ABSOLUTE LYMPH COUNT 0.5 /CUMM (1.2-3.4); ABSOLUTE MONOCYTE COUNT 0.1 /CUMM (0.10-0.60); BASOPHIL % 0.1 % (0.0-2.0); EOSINOPHIL % 0.8 % (0-5); GRANULOCYTE % 82.8 % (42.2-75.2); HEMATOCRIT 22.9 % (42-52); MEAN CORPUSCULAR HGB 32.7 PG (27.0-31.0); MEAN CORPUSCULAR HGB CONC 32.7 G/DL (33.0-37.0); MEAN CORPUSCULAR VOLUME 99.9 FL (80.0-94.0); MEAN PLATELET VOLUME 7.3 FL (7.4-10.4); PLATELET COUNT 254 /CUMM (130-400); RBC DISTRIBUTION WIDTH 18.3 % (11.5-14.5); RED BLOOD CELL CT 2.29 /CUMM (4.70-6.10); WHITE BLOOD CELL COUNT 4.1 /CUMM (4.8-10.8)
--- NOTE | 2017-05-18 10:02 | Event Note ---
Event Note Event Note: S:Patient would like to be discharged. B:Patient has been admitted due to autoimmune hemolytic anemia. He received 2 doses of IVIG over the week. He has been continued on steroids. H/H this am: 7.5/22.9 A/R: Spoke to the physician on-call for hematology on oncology Dr. Cam Rodriguez. Explained the situation. He states that from his point of view the patient can be discharged. He should have a repeat CBC on Saturday05/20/2017. He can be followed up with Dr. Reagan his regular fall internship and oncologist. Attending made aware.
[2017-05-18] MEDS ORDERED: DOXYCYCLINE HY100 M4 PO ×2 (10:07→13:30)
--- NOTE | 2017-05-18 10:52 | PN- Student ---
Subjective Subjective: Pt was seen and examined at the bedside. He reports feeling well today and his rash has subsided significantly. He only notices one lesion on his right lower back that is round, poorly demarcated, and red and blue. He is feeling increased energy and was able to run up and down multiple flights of stairs yesterday. Denies fever, chills, lightheadedness, shortness of breath, palpitations, nausea , abdominal pain, or muscle cramps. Objective Objective: Intake & Output 05/18 0800 05/18 0000 05/17 1600 05/17 0000 Intake Total 250 578 018 7834 Output Total 300 2000 Balance 250 302 425 0256 Intake, IV 2100 Intake, Oral 250 698 346 7443 Output, Urine 300 2000 Current Medications Sig/Katey Start time Last Medication Dose Route Stop Time Status Admin Acetaminophen 325 MG Q6P PRN 05/13 1715 AC 05/17 PO 0656 Calcium Carbonate 500 MG DAILY 05/15 1909 AC 05/15 PO 1927 Diphenhydramine HCl 25 MG Q6P PRN 05/17 0800 AC 05/18 PO 0754 Diphenhydramine HCl 25 MG ONCE PRN 05/15 1330 AC 05/16 IV 2256 Doxycycline Hyclate 100 MG BID 05/16 1009 AC 05/18 PO 0930 Famotidine 20 MG DAILY 05/17 1000 AC 05/18 PO 0934 Folic Acid 1 MG DAILY 05/14 1000 AC 05/18 PO 0930 Morphine Sulfate 1 MG Q4 PRN 05/13 1545 AC IV Prednisone 180 MG DAILY 05/14 1000 AC 05/18 PO 0930 Vital Signs Date Time Temp Pulse Resp B/P Pulse O2 Ox Delivery 05/18 0700 97.9 82 20 113/62 98 Room Air 05/17 2315 98.2 85 20 123/76 98 Room Air 05/17 1619 98.2 05/17 1442 99.2 105 20 118/64 98 Room Air Physical Exam General: well-appearing, NAD Cardiac: tachycardic, normal s1s2, no mrg, rrr Pulm: cta bl, normal chest expansion GI: no ttp, no rebound, no guarding Skin: red/blue lesion on the right lower back, non-pruritic, non-tender Results Results: Laboratory Tests 05/18/17 0638: Anion Gap 8, Estimated GFR > 60, BUN/Creatinine Ratio 23.8, Total Bilirubin 0.6, Lactate Dehydrogenase 474, CBC w Diff NO MAN DIFF REQ, RBC 2.29 L, MCV 99.9 H, MCH 32.7 H, RDW 18.3 H, MPV 7.3 L, Gran % 82.8 H, Lymphocytes % 12.8 L, Monocytes % 3.5, Eosinophils % 0.8, Basophils % 0.1, Absolute Granulocytes 3.4, Absolute Lymphocytes 0.5 L, Absolute Monocytes 0.1 L, Absolute Eosinophils 0, Absolute Basophils 0, PUBS MCHC 32.7 L, Retic Count 14.16 H 05/17/17 0635: Anion Gap 9, Estimated GFR > 60, BUN/Creatinine Ratio 20.0, Total Bilirubin 0.7, Lactate Dehydrogenase 526, CBC w Diff NO MAN DIFF REQ, RBC 2.31 L, MCV 100.8 H , MCH 32.9 H, RDW 19.3 H, MPV 7.4, Gran % 96.1 H, Lymphocytes % 2.6 L, Monocytes % 0.7 L, Eosinophils % 0.6, Basophils % 0 L, Absolute Granulocytes 7.9 H, Absolute Lymphocytes 0.2 L, Absolute Monocytes 0.1 L, Absolute Eosinophils 0, Absolute Basophils 0, PUBS MCHC 32.7 L, Retic Count 18.89 H Assessment/Plan Assessment: Pt is a 47 yo white male recently diagnosed with autoimmune hemolytic anemia being managed with prednisone and folic acid who presented with jaundice and easy fatigueability and a low H&H on labs. Hgb today is 7.5, down from 7.6 yesterday, and WBC differential is normalizing. While his Hgb is still below the reference range, this is still a significant improvement from his reading on admission and his H&H is stable since yesterday. The plan is to discharge the pt today and have him follow up early next week. Plan: #1 idiopathic hemolytic anemia -continue prednisone and folic acid -increase dietary intake of iron -f/u with hematology -f/u with PCP #2 skin reaction Large red/blue lesion in the right lower back. Likely a reaction to the IVIg. -hold IVIg for now -continue pepsid -antihistamines prn #3 splenomegaly spleen was enlarged on abd ct -avoid contact sports for now #4 back pain -motrin and tylenol prn
--- NOTE | 2017-05-18 13:21 | Discharge Summary ---
Visit Information Visit Dates Admission Date: 05/15/17 Discharge Date: 05/18/17 Hospital Course Course Attending Physician: ROSARIO PERERA MD Primary Care Physician: ELPIDIO KUMAR,[facility] Hospital Course: Mr Stanley is 47-year-old male with PMH of spinal stenosis on NSAIDs, was seen at the emergency department on 05/13/2017 after being sent in by police guard and oncologist Dr. Reagan due to anemia and low H&H found at the office of Dr. Reagan. The patient was recently discharged from [facility] on 05/09/2017 with instructions to follow-up with hematology and oncology for management of idiopathic autoimmune hemolytic anemia. The patient was admitted to the General Medical service and below is a summary of the care he received under us. # Idiopathic Symptomatic anemia, On day two of admission the patient received 2 units of PRBCs. The patient also received another unit of PRBC on day 3 of admission. On day 3 of admission the patient was started on IVIG 1 gm/kg/day. Initially patient tolerated infusion however on the following day the patient did have an evidence of what looked like an urticarial rash. On day four admission the patient was given another dose of IVIG. Through out the admission the patient was continued on high-dose steroids 1.5 mg/kg. The patient was continued on a daily dose of folic acid. His daily labs were monitored. On day 6 Of admission the patient expressed that he would like to be discharged owing to feeling well. A call was made out to the lobby concierge police guard and oncologist Dr. Cam Rodriguez. He stated that it was fine for the patient to be discharged and requested the patient follow up with a police guard and oncologist on 05/20/2017. Patient was also started on famotidine for GI prophylaxis. #Diffuse Rash in the setting of positive Lyme titers. On day four of admission, the patient developed a rash on his left upper extremity and mid upper left back. Rash was nonraised, nontender, and erythematous. It appeared ring form. No pruritis expressed. Owing to the patient's previous positive Lyme serologies he was started on doxycycline 100 mg twice a day for Lyme disease. At the time of discharge he was continued on doxycycline to complete a 10 day course of antibiotics. #Urticarial rash During this admission the patient developed urticaria. This was likley due to manifestation of IVIG treatment. He was treated of combination of diphenhydramine and discharged home with this medication symptomatic relief. #History of spinal stenosis While the patient was admitted we kept him off any NSAIDs owing to previous history of acute blood loss anemia. Pain was managed with a combination of morphine and Tylenol. #DVT prophylaxis Patient was maintained on ALPS throughout the admission. Allergies: Coded Allergies: No Known Allergies (05/13/17) Pertinent Lab Results: H/H: 05/13/2017: 5.8/17.4 05/14/2017: 5.0/15.3 Disposition Summary Disposition Principal Diagnosis: Idiopathic hemolytic anemia. Additional Diagnosis: Urticaria. Positive Lyme disease titers Spinal stenosis Discharge Disposition: home or self care Discharge Instructions General Discharge Information Code Status: Full Code Patient's Diet: Regular Patient's Activity: As Tolerated Follow-Up Instructions/Appts: On 05/20/2017 please have a CBC checked. We have provided you a script. Please forward the results of this test your primary care physician. Please follow-up with your primary care physician within 7 days of discharge. Please inform your primary care physician of this admission to the hospital. Please follow up with Dr Reagan on 05/20/2017. Please inform the primary for this care physician of the treatment administered to you. Please follow-up with a blower mechanic within 7 days. We have provided you referral. Avoid all Non-Steroidal Anti Inflamatories, as these can cause blood loss. Medications at Discharge Discharge Medications: Stop taking the following medications: Prednisone (Prednisone) 20 MG TABLET ORAL DAILY Qty = 42 Prednisone (Prednisone) 5 MG TABLET ORAL DAILY Qty = 7 Continue taking these medications: Folic Acid (Folic Acid) 1 MG TABLET 1 Tablet ORAL DAILY Qty = 30 Comments: Last Taken: 05/18/17 Time: 0900 Start taking the following new medications: Prednisone (Prednisone) 20 MG TABLET 180 Milligram ORAL DAILY Qty = 63 No Refills Instructions: ..Please take 180 mg per day. Comments: Last Taken: 05/18/17 Time: 0900 Famotidine (Famotidine) 20 MG TABLET 20 Milligram ORAL DAILY Qty = 5 No Refills Instructions: ... Comments: Last Taken: 05/18/17 Time: 0630 Diphenhydramine HCl (Diphenhydramine HCl) 25 MG CAPSULE 25 Milligram ORAL EVERY SIX HOURS NEEDED as needed for RASH Qty = 10 No Refills Instructions: . Comments: Last Taken: 05/18/17 Time: 0800 Doxycycline Hyclate (Doxycycline Hyclate) 100 MG TABLET 1 Tablet ORAL TWICE DAILY Qty = 14 No Refills Copies To: JOHN MAGALLANES MD; PRETTY KUMAR,ALTHEA; TOÑITO KUMAR,TESSA [place]
[2017-05-18] MEDS ORDERED: DIPHENHYDRAMINE25 M4 PO (13:30)
[2017-05-18] MEDS ORDERED: FAMOTIDINE20 M1 PO (13:30)
[2017-05-18] MEDS ORDERED: PREDNISONE20 M1 PO (13:30)
--- NOTE | 2017-05-18 13:36 | Event Note ---
Event Note Event Note: S: Patient scripts had not been transmitted to [facility]. A/R: Verbally spoke to Palma Mccann of [facility]. [facility]/pharmacy #[id number] [place] [place] [address] Confirmed that 2 of the 4 scripts were received. Personally called in the other 2 scripts. These have been confirmed. Patient is informed of this. [facility]/pharmacy #[id number] [place] [address]
== END 2017-05-18 11:14 | DRG 809 ==
LOC: ERH 14:10 → ERHI 15:26 → 2NB 15:26 → ENRESERV 22:24 → 2NB 23:23 → ENPENDDIS 05-18 10:52 → 2NB 05-18 11:14
PROVIDERS: Emergency Medicine; Student in an Organized Health Care Education/Training Program; ADMIT Internal Medicine
PROC: 30233N1 Transfusion of Nonautologous Red Blood Cells into Peripheral Vein, Percutaneous Approach (ICD-10-PCS; principal; 2017-05-15)
DX: D59.1 Other autoimmune hemolytic anemias (principal); M35.8 Other specified systemic involvement of connective tissue; L50.9 Urticaria, unspecified; M48.00 Spinal stenosis, site unspecified; T80.89XA Other complications following infusion, transfusion and therapeutic injection, initial encounter; Y84.8 Other medical procedures as the cause of abnormal reaction of the patient, or of later complication, without mention of misadventure at the time of the procedure
CPT/HCPCS: 2NBP; 36415; 82436; 86431; 86920; 93005; 93010; J1200; J1566; J2920; J3490; P9016